=== PATIENT | male | born 1950 | race Caucasian/White ===

== ENCOUNTER 2017-11-25 15:20 | Observation (INO) | payer MEDICARE, BC ==
[2017-11-25] MEDS ORDERED: Sodium Chloride 0.9% 1,000 ML IV ONE (15:39)
[2017-11-25 16:18] LABS: CHLORIDE,CL 101 mmol/L (98-115); SODIUM,NA 140 mmol/L (136-145)
[2017-11-25] MEDS ORDERED: Metoprolol Tartrate 5 MG/5 ML SDV ONE ×2 (16:18→18:54)
[2017-11-25] MEDS ORDERED: Metoprolol Tartrate 5 MG/5 ML SDV IVPUSH ONE ×2 (16:19→18:54)
[2017-11-25] MEDS ORDERED: Ondansetron 4 MG/2 ML SDV IVPUSH ONE ×2 (16:31→17:46)
[2017-11-25] MEDS ORDERED: Ondansetron 4 MG/2 ML SDV ONE (17:39)
--- NOTE | 2017-11-25 19:17 | PCM.SN ---
- Free Text/Narrative Note: Pt admitted through ER. ER provider reports he came to ER due to a syncopal episode today. Pt was last seen at [facility] Dec 2016 with new onset AFib. He was to start on Eliquis and metoprolol tartrate, return for BP recheck. EKG report 01/09/17: Afib, Left Anteriour fascicular Block, R)BBB, Bifascicular block. Echo 01/11/17 showed EF 40%, mildly dilated L)ventricle, Moderately reduced Left ventricular systolic function. No significant mitral or aortic valve stenosis or regurgitation. He did have a previous echo 03/15/15 due to pedal edema. At that time the valves were nl, EF 55%, mild diastolic dysfunction. ER provider report: CT of head was negative. Troponin in ER was upper limits of normal at 0.07 Pt has not been taking any home meds. Heart rate in ER was 130-150. He was given metoprolol 5 mg IV and heart rate was down to 100. BP 100/80-132/94. He has had no chest pain. He does have nausea. ER provider reports he is stable and will transfer pt to [place], admitted for observation on telemetry. Call from nurse 7pm, Heart rate again 130. BP 138/59 Orders given to repeat Metoprolol 5 mg IV now. Start metoprolol tartrate 12.5 mg bid at 9 pm tonight.
[2017-11-25] MEDS ORDERED: Diltiazem 25 MG/5 ML SDV IVPUSH ONE (21:13)
--- NOTE | 2017-11-25 21:13 | EDM.PDOC ---
ED HPI GENERAL MEDICAL PROBLEM - General Chief Complaint: Cardiovascular Problem Stated Complaint: PASSED OUT Time Seen by Provider: 11/25/17 15:25 Source of Information: Reports: Patient, EMS Notes Reviewed - History of Present Illness INITIAL COMMENTS - FREE TEXT/NARRATIVE: 67-year-old male is brought in by EMS for evaluation of syncopal episode and atrial fibrillation with RVR. Patient complained of feeling dizzy while getting up in the kitchen and was heading towards the bathroom and fell having a syncopal episode. EMS was called and [facility]. He reports feeling nausea week and lightheaded. He states that the EMS staff that he does not take any medications but probably is supposed to. He denies any heart problems except for history of hypertension which he does not take medication for as prescribed he was also placed on Eliqius with and was recently diagnosed with atrial fibrillation earlier this year. Vital signs showed that patient was tachycardic and hypotensive and diaphoretic he did not have an IV started and is not given fluids. He reports no chest pain or shortness of breath. He denies headache and is not experiencing any difficulty with speech and has excellent recall of memory both recent and remote events. Onset: Today Onset Date: 11/25/17 Onset Time: 14:00 Duration: Minutes: Location: Reports: Chest Severity: Moderate Improves with: Reports: None Worsens with: Reports: None Associated Symptoms: Reports: Diaphoresis, Nausea/Vomiting, Syncope. Denies: Confusion, Chest Pain, Headaches, Seizure, Shortness of Breath - Related Data Allergies Allergy/AdvReac Type Severity Reaction Status Date / Time Penicillins Allergy Anaphylactic Verified 11/25/17 16:20 Shock Past Medical History HEENT History: Reports: Impaired Vision Cardiovascular History: Reports: Afib, Hypertension, Syncope Gastrointestinal History: Reports: None Genitourinary History: Reports: None Musculoskeletal History: Reports: None - Infectious Disease History Infectious Disease History: Reports: Chicken Pox, Measles, Mumps - Past Surgical History HEENT Surgical History: Reports: Oral Surgery Cardiovascular Surgical History: Reports: None GI Surgical History: Reports: Hernia, Inguinal Male Surgical History: Reports: None Musculoskeletal Surgical History: Reports: Other (See Below) Other Musculoskeletal Surgeries/Procedures:: fluid removed from the knee once more than 10 years ago. Social & Family History - Family History Cardiac: Reports: Aneurysm Oncologic: Reports: Colon - Tobacco Use Smoking Status *Q: Former Smoker Years of Tobacco use: 6 Packs/Tins Daily: 2 Used Tobacco, but Quit: Yes Month Tobacco Last Used: 360 Second Hand Smoke Exposure: No - Caffeine Use Caffeine Use: Reports: Soda Caffeine Use Comment: Drinks about three bottles of Mnt dew - Alcohol Use Days Per Week of Alcohol Use: 0 - Recreational Drug Use Recreational Drug Use: No ED ROS GENERAL - Review of Systems Review Of Systems: See Below Constitutional: Reports: Diaphoresis HEENT: Reports: No Symptoms Respiratory: Reports: No Symptoms Cardiovascular: Reports: Blood Pressure Problem, Lightheadedness. Denies: Chest Pain, Dyspnea on Exertion, Palpitations Endocrine: Reports: No Symptoms GI/Abdominal: Reports: No Symptoms : Reports: No Symptoms Musculoskeletal: Denies: Neck Pain, Back Pain, Joint Pain Skin: Reports: Diaphoresis Neurological: Reports: Syncope. Denies: Confusion, Dizziness, Headache, Numbness, Paresthesia, Tingling, Trouble Speaking, Difficulty Walking, Weakness , Change in Speech, Gait Disturbance Psychiatric: Reports: No Symptoms Hematologic/Lymphatic: Reports: No Symptoms Immunologic: Reports: Anaphylaxis (PCN) ED EXAM, GENERAL - Physical Exam Exam: See Below Exam Limited By: No Limitations General Appearance: Alert, WD/WN, No Apparent Distress Eye Exam: Bilateral Eye: EOMI, PERRL Ears: Normal External Exam, Normal TMs Nose: Normal Inspection Throat/Mouth: Normal Inspection, Normal Oropharynx, Normal Voice, No Airway Compromise Head: Atraumatic, Normocephalic Neck: Normal Inspection, Supple, Non-Tender, Full Range of Motion. No: Lymphadenopathy (L), Lymphadenopathy (R) Respiratory/Chest: No Respiratory Distress, Lungs Clear, Normal Breath Sounds Cardiovascular: Tachycardia, Irregularly Irregular GI/Abdominal: Normal Bowel Sounds, Soft, Non-Tender, No Abnormal Bruit Back Exam: Normal Inspection, Full Range of Motion Extremities: Normal Inspection, Normal Range of Motion, No Pedal Edema Neurological: Alert, Oriented, CN II-XII Intact, Normal Cognition, Normal Reflexes, No Motor/Sensory Deficits. No: Memory Loss Remote Events, Memory Loss Recent Events Psychiatric: Normal Affect, Normal Mood Skin Exam: Warm, Intact, Cyanosis, Diaphoretic Lymphatic: No Adenopathy EKG INTERPRETATION EKG Date: 11/25/17 Time: 15:58 Rhythm: A-Fib Rate (Beats/Min): 109 [place]: LAD-Left [place] Deviation QRS: RBBB ST-T: Normal QT: Normal Comparison: NA - No Prior EKG EKG Interpretation Comments: Atrial fibrillation with rapid ventricular response Left axis deviation Right bundle branch block Abnormal ECG Course - Vital Signs Last Recorded V/S: Last Vital Signs Temp 98.3 F 11/25/17 18:10 Pulse 106 H 11/25/17 20:01 Resp 18 11/25/17 19:10 BP 95/67 11/25/17 20:01 Pulse Ox 95 11/25/17 20:01 - Orders/Labs/Meds Orders: Active Orders 24 hr Category Date Time Status Admission Status [Patient Status] [ADT] Routine ADT 11/25/17 17:32 Ordered EKG Documentation Completion [RC] ASDIRECTED Care 11/25/17 15:38 Active Head wo Cont [CT] Stat Exams 11/25/17 16:31 Ordered EKG 12 Lead [EK] Routine Ther 11/25/17 15:38 Ordered Medication Orders Apixaban (Eliquis) 5 mg PO BID HANNAH Labs: Laboratory Tests 11/25/17 11/25/17 Range/Units 15:35 15:35 WBC 11.2 H (5.0-10.0) 10^3/uL RBC 4.95 (4.50-6.00) 10^6/uL Hgb 14.0 (13.0-17.0) g/dL Hct 44.2 (40.0-52.0) % MCV 89.2 (82.0-92.0) fL MCH 28.3 (27.0-31.0) pg MCHC 31.7 L (32.0-36.0) g/dL RDW 12.1 (11.5-14.5) % Plt Count 423 H (150-300) 10^3/uL MPV 7.9 (7.4-10.4) fL Neut % (Auto) 84.4 H (50.0-70.0) % Lymph % (Auto) 10.9 L (20.0-40.0) % [place] % (Auto) 4.2 (2.0-8.0) % Eos % (Auto) 0.5 L (1.0-3.0) % Baso % (Auto) 0.0 (0.0-1.0) % Neut # (Auto) 9.4 H (2.5-7.0) 10^3/uL Lymph # (Auto) 1.2 (1.0-4.0) 10^3/uL [place] # (Auto) 0.5 (0.1-0.8) 10^3/uL Eos # (Auto) 0.1 (0.1-0.3) 10^3/uL Baso # (Auto) 0.0 (0.0-0.1) 10^3/uL Sodium 140 (136-145) mmol/L Potassium 4.5 (3.3-5.3) mmol/L Chloride 101 (98-115) mmol/L Carbon Dioxide 27.8 (21.0-32.0) mmol/L BUN 22 (6-25) mg/dL Creatinine 1.63 H (0.51-1.17) mg/dL Est Cr Clr Drug Dosing TNP Estimated GFR (MDRD) 43 mL/min Glucose 133 H (70-110) mg/dL Calcium 9.2 (8.7-10.3) mg/dL Troponin I 0.07 (0.00-0.070) ng/mL Meds: Medications Generic Name Dose Route Start Last Admin Trade Name Freq PRN Reason Stop Dose Admin Apixaban 5 mg 11/25/17 21:00 Eliquis PO BID HANNAH Discontinued Medications Generic Name Dose Route Start Last Admin Trade Name Freq PRN Reason Stop Dose Admin Sodium Chloride 1,000 mls @ 1,000 mls/hr 11/25/17 15:39 11/25/17 15:40 Normal Saline IV 11/25/17 16:38 1,000 mls/hr .BOLUS ONE Administration Metoprolol Tartrate Confirm 11/25/17 16:18 11/25/17 17:48 Lopressor Administered 11/25/17 16:19 Not Given Dose 5 mg .ROUTE .STK-MED ONE Metoprolol Tartrate 5 mg 11/25/17 16:19 11/25/17 16:22 Lopressor IVPUSH 11/25/17 16:20 5 mg ONETIME ONE Administration Metoprolol Tartrate Confirm 11/25/17 18:54 11/25/17 19:10 Lopressor Administered 11/25/17 18:55 5 mg Dose Administration 5 mg .ROUTE .STK-MED ONE Ondansetron HCl 8 mg 11/25/17 16:31 11/25/17 16:34 Zofran IVPUSH 11/25/17 16:32 8 mg ONETIME ONE Administration Ondansetron HCl Confirm 11/25/17 17:39 11/25/17 17:47 Zofran Administered 11/25/17 17:40 4 mg Dose Administration 4 mg .ROUTE .STK-MED ONE Ondansetron HCl 4 mg 11/25/17 17:46 Zofran IVPUSH 11/25/17 17:47 ONETIME ONE - Radiology Interpretation Free Text/Narrative:: CT the head without IV contrast Indication: Syncope Discussion: Mild to moderate generalized atrophy The ridley and white matter are normal in attenuation No mass effect or midline shift No acute hemorrhage or extra-axial fluid collection no acute territorial infarct is identified A limited look at the orbits and paranasal sinuses is unremarkable Impression: No acute findings CT Results Date: 11/25/17 - Re-Assessments/Exams Free Text/Narrative Re-Assessment/Exam: 11/25/17 1420 Patient reports that he feels better. He is no longer sweating. His nausea is resolved and is not experiencing dizziness. He denies palpitations and denies shortness of breath. He has no complaints of a headache. He was given 1 L fluid normal saline 5 mg IV slow push over 5 minutes metoprolol his heart rate improved at 100 bpm and was maintained Departure - Departure Time of Disposition: 18:15 Disposition: Refer to Observation Condition: Fair Clinical Impression: Atrial fibrillation with RVR, Patient noncompliant with antithrombotic medication Syncopal episodes Qualifiers: Syncope type: unspecified Qualified Code(s): R55 - Syncope and collapse - My Orders Last 24 Hours: My Active Orders 11/25/17 15:38 EKG Documentation Completion [RC] ASDIRECTED EKG 12 Lead [EK] Routine 11/25/17 16:31 Head wo Cont [CT] Stat 11/25/17 17:32 Admission Status [Patient Status] [ADT] Routine - Assessment/Plan Last 24 Hours: My Active Orders 11/25/17 15:38 EKG Documentation Completion [RC] ASDIRECTED EKG 12 Lead [EK] Routine 11/25/17 16:31 Head wo Cont [CT] Stat 11/25/17 17:32 Admission Status [Patient Status] [ADT] Routine Assessment:: Syncopal episode Atrial fibrillation with RVR Noncompliant with hypertensive and anticoagulant medication. Plan: Patient's heart rate improved and was maintained at 100 bpm with metoprolol 5 mg IV. He was given 1 L normal saline fluids and blood pressures improved no 132 /94. Patient was not experiencing chest pain or shortness of breath. His nausea resolved with medication. CT scan of his head was negative for acute bleed or stroke. Patient will be admitted on telemetry and transfer care was provided by [facility] adoption agent mid-level practitioner.
--- NOTE | 2017-11-25 21:25 | PCM.HP ---
H&P History of Present Illness - General Date of Service: 11/25/17 Admit Problem/Dx: syncope, Afib with RVR Source of Information: Patient History Limitations: Reports: No Limitations - History of Present Illness Initial Comments - Free Text/Narative: 67 yo pleasant male in no apparent distress reports he was feeling fine. He got up to go to the bathroom this afternoon and on arriving at the door, just passed out. When he fell/landed, he immediately revived. He states he had no light headedness, dizziness or vision change before or after incident. Pt denies any chest pain, shortness of breath, fever. He does report he has felt nauseated since the incident. Pt has a history of Afib diagnosed in Dec 2016 and was started on lopressor 12.5 mg bid and eliquis. He states at one time he ran out of the medication and just didn't refill it. Pt was seen in ER where he had a CT of the head which was negative. He was given a liter of IV fluids and lopressor 5 mg IV x 1 at 3pm. Heart rate improved from 130-150s to 100. BP 100/80s to 132/94. Troponin is upper normal at 0.07. Onset of Symptoms: Reports: Sudden Symptom Onset Date: 11/25/17 Duration of Symptoms: Reports: Other (seconds) Location: Reports: Other (syncope) - Related Data Allergies/Adverse Reactions: Allergies Allergy/AdvReac Type Severity Reaction Status Date / Time Penicillins Allergy Anaphylactic Verified 11/25/17 16:20 Shock Past Medical History HEENT History: Reports: Impaired Vision Cardiovascular History: Reports: Afib, Hypertension, Syncope Gastrointestinal History: Reports: None Genitourinary History: Reports: None Musculoskeletal History: Reports: Gout - Infectious Disease History Infectious Disease History: Reports: Chicken Pox, Measles, Mumps - Past Surgical History HEENT Surgical History: Reports: Oral Surgery Cardiovascular Surgical History: Reports: None GI Surgical History: Reports: Hernia, Inguinal Male Surgical History: Reports: None Musculoskeletal Surgical History: Reports: Other (See Below) Other Musculoskeletal Surgeries/Procedures:: fluid removed from the knee once more than 10 years ago. Social & Family History - Family History Cardiac: Reports: Aneurysm Oncologic: Reports: Colon - Tobacco Use Smoking Status *Q: Former Smoker Years of Tobacco use: 6 Packs/Tins Daily: 2 Used Tobacco, but Quit: Yes Month Tobacco Last Used: 360 Second Hand Smoke Exposure: No - Caffeine Use Caffeine Use: Reports: Soda Caffeine Use Comment: Drinks about three bottles of Mnt dew - Alcohol Use Days Per Week of Alcohol Use: 0 - Recreational Drug Use Recreational Drug Use: No H&P Review of Systems - Review of Systems: Review Of Systems: See Below General: Reports: Fatigue (fatigue since hospital admission and on lopressor). Denies: Fever, Chills, Malaise, Weakness, Decreased Appetite, Weight Gain HEENT: Reports: No Symptoms Pulmonary: Reports: No Symptoms. Denies: Shortness of Breath, Cough Cardiovascular: Reports: No Symptoms. Denies: Chest Pain, Palpitations, Dyspnea on Exertion, Edema Gastrointestinal: Reports: Nausea. Denies: Constipation, Diarrhea, Vomiting Psychiatric: Reports: No Symptoms. Denies: Confusion Neurological: Reports: No Symptoms, Syncope (syncope x 1 this afternoon). Denies: Confusion, Dizziness, Headache, Paresthesia Hematologic/Lymphatic: Reports: No Symptoms Immunologic: Reports: No Symptoms Exam - Exam Exam: See Below - Vital Signs Vital Signs: Last Vital Signs Temp 98.3 F 11/25/17 18:10 Pulse 106 H 11/25/17 20:01 Resp 18 11/25/17 19:10 BP 95/67 11/25/17 20:01 Pulse Ox 95 11/25/17 20:01 Weight: 242 lb 8 oz - Exam Quality Assessment: No: Supplemental Oxygen General: Alert, Oriented, Cooperative HEENT: EOMI, Hearing Intact, Mucosa Moist & [place], Posterior Pharynx Clear, Pupils Equal, Pupils Reactive Neck: Supple. No: Carotid Bruit, JVD Lungs: Clear to Auscultation, Normal Respiratory Effort. No: Decreased Breath Sounds, Crackles, Rales, Rhonchi, Wheezing Cardiovascular: Irregular Rhythm, Tachycardia GI/Abdominal Exam: Normal Bowel Sounds, Soft, Non-Tender (Male) Exam: Deferred Extremities: Normal Inspection, No Pedal Edema Neurological: Cranial Nerves Intact Neuro Extensive - Mental Status: Alert, Oriented x3, Normal Mood/Affect, Normal Cognition, Memory Intact Psychiatric: Alert, Normal Affect, Normal Mood - Patient Data Result Diagrams: 11/25/17 15:35 11/25/17 15:35 EKG INTERPRETATION Rhythm: A-Fib Rate (Beats/Min): 109 [place]: LAD-Left [place] Deviation Comparison: Other: (EKG 01/09/17 Afib, left anterior fascicular block: RBBB, Bifascicular block) *Q Meaningful Use (ADM) - VTE *Q VTE Criteria *Q: - Stroke *Q Stroke Criteria *Q: - AMI *Q AMI Criteria *Q: Problem List Initiated/Reviewed/Updated: Yes Orders Last 24hrs: Active Orders 24 hr Category Date Time Status Bedrest Bathroom Privileges [RC] ASDIRECTED Care 11/25/17 20:00 Active EKG Documentation Completion [RC] ASDIRECTED Care 11/25/17 21:12 Ordered EKG Documentation Completion [RC] ASDIRECTED Care 11/25/17 21:16 Ordered Heart Healthy Diet [DIET] Diet 11/26/17 Breakfast Active TROPONIN I [CHEM] Routine Lab 11/25/17 21:11 Ordered TROPONIN I [CHEM] Routine Lab 11/26/17 03:00 Ordered Apixaban [Eliquis] Med 11/25/17 21:00 Active 5 mg PO BID Diltiazem Med 11/25/17 21:13 Once 10 mg IVPUSH ONETIME ONE EKG 12 Lead [EK] Routine Ther 11/25/17 21:12 Ordered EKG 12 Lead [EK] Routine Ther 11/26/17 03:00 Ordered Medication Orders Apixaban (Eliquis) 5 mg PO BID HANNAH Diltiazem HCl (Diltiazem) 10 mg IVPUSH ONETIME ONE Stop: 11/25/17 21:14 Assessment/Plan Comment:: 1. Afib with RVR: Admit for observation. Pt is in no distress. Heart rate continues to be tachycardic. He was given IV metoprolol 5 mg in ER at 3 pm and again at 7 pm. Heart rate dropped to 80-90 initially, 9 pm it is returning to 103-130. [address] Lopez re: tachycardia with hypotension. He advises Diltiazem 10 mg IV. May repeat in 20 min. continue IV fluids Will recheck Troponin and EKG now and 3 am.
[2017-11-25] MEDS ORDERED: Diltiazem 25 MG/5 ML SDV IVPUSH PRN (21:52)
[2017-11-25] MEDS ORDERED: Sodium Chloride 0.9% 1,000 ML IV SCH (22:00)
[2017-11-25] MEDS: Apixaban 5 MG Tab PO SCH (22:51)
[2017-11-25] MEDS: Metoprolol Tartrate 25 MG Tab PO SCH (22:51)
[2017-11-26] MEDS: Apixaban 5 MG Tab PO SCH ×2 (08:37→21:04)
[2017-11-26] MEDS ORDERED: Atropine 0.1 MG/ML 10 ML Syringe IVPUSH PRN (08:39)
[2017-11-26] MEDS ORDERED: Lidocaine 2% 100 MG/5 ML Syringe IVPUSH PRN (08:39)
[2017-11-26] MEDS ORDERED: Nitroglycerin 0.4 MG Tab.SL SL PRN (08:39)
[2017-11-26] MEDS: Metoprolol Tartrate 25 MG Tab PO SCH ×2 (08:39→21:05)
[2017-11-26] MEDS ORDERED: EPINEPHrine 1:10,000 1 MG/10 ML Syringe IVPUSH PRN (08:39)
[2017-11-27 06:50] VITALS: BP 98/62
[2017-11-27] MEDS: Apixaban 5 MG Tab PO SCH (07:59)
[2017-11-27] MEDS: Metoprolol Tartrate 25 MG Tab PO SCH (08:00)
--- NOTE | 2017-11-27 08:30 | PN ---
11/26/2017PATIENT NAME: IVANIA SCHULTZ PROBLEM: 1. Atrial fibrillation with rapid onset. 2. Hypotension. SUBJECTIVE: This 67-year-old patient is seen today for followup. He was admitted yesterday because of rapid heart rate and hypotension. The patient currently was taking Eliquis and metoprolol, but decided to stop the medication on his own for some time. He presented to the emergency room with a very rapid heart rate and hypotension. He was started on IV metoprolol and this appeared to bring his heart rate back to normal. He has had a history of atrial fibrillation since December 2016, and has been on Lopressor 12.5 mg b.i.d., and Eliquis 5 mg b.i.d. He was given a liter of IV fluid fluids and Lopressor IV 5 mg at 3:00 p.m. His heart rate improved from 130 to 100. Blood pressure was 100/80 to 132/94. Today morning, he is seen for followup. His vital signs are as follows. OBJECTIVE: VITAL SIGNS: Blood pressure is low at 83/62. Temperature is 98.4, respiratory rate is 18, oxygen saturation 97%. GENERAL: He appears to be alert and in no distress. HEENT: His head is normocephalic. NECK: Supple. LUNGS: Clear. HEART: Regular rhythm. ABDOMEN: Soft. EXTREMITIES: Normal. LABORATORY DATA: His hemoglobin is 14, white count 11.2, normal differential count. Electrolytes are normal. Creatinine is slightly high at 1.63, BUN is normal at 22. Glucose 133. FINAL DIAGNOSIS: Atrial fibrillation with rapid ventricular rate. This is due to patient being delinquent on his medication. He was started back on his metoprolol. Also on Eliquis. His blood pressure is still low. We will ask him to drink plenty of fluids today and move around. We will see how he does. Possible discharge tomorrow if the blood pressure comes back to normal. /[id number]/MODL
--- NOTE | 2017-11-28 08:42 | DISCH ---
FINAL DIAGNOSES: 1. Atrial fibrillation, chronic, CHADS2-Vasc score low risk, 1 to 2. 2. Medication noncompliance. HISTORY: This 67-year-old gentleman was admitted to the emergency department due to atrial fibrillation with rapid ventricular response. He had been on Factor Xa anticoagulation along with beta-mago, however, he had stopped these medications. He stated he was up to the bathroom the afternoon of admission and he said he passed out. He fell. He did not have any other injury. He does have history of atrial fibrillation he was diagnosed approximately one year ago. At that time, he was started on Lopressor 25 mg p.o. b.i.d. along with Eliquis. Basically, he ran out of the medication. He just did not refill it. He was admitted to start on anticoagulation and for telemetry monitoring and for medications due to his RVR. DIAGNOSTICS: In the ED: 1. EKG shows rapid ventricular response, rates 130s. 2. CT of the head, negative. HOSPITAL COURSE: Hospital course went fairly well. He was given IV metoprolol, also started back on Eliquis. At one time, his blood pressure did get a little low, he was given initial fluids, this did improve his overall status. Troponins were negative. He remained on telemetry. His rate slowly improved. He was also given diltiazem 10 mg IV push one time. He never became hemodynamically unstable. Pharmacy was consulted to discuss with the patient regarding patient noncompliance. LABORATORY DATA: White count 11.2 on admission, hematocrit 44.2, hemoglobin 14.0. Sodium and potassium normal, BUN 22, creatinine 1.63. Troponin x3 were negative. PHYSICAL EXAM ON DISCHARGE: VITAL SIGNS: Temperature 97, heart rate 80s to 90s, blood pressure approximately 100 systolically. GENERAL: The patient is alert and oriented. Denies any dizziness. Denies any chest pain or chest fluttering. CV: Irregular rhythm, rate 90. DISCHARGE MEDICATIONS: 1. Eliquis 5 mg p.o. b.i.d. 2. Metoprolol tartrate 12.5 mg p.o. b.i.d. DISPOSITION: The patient will be discharged from the hospital. He will follow up with Jessica Ya, primary care provider. If he report any dizziness or any lightheadedness, he is educated to continue his medication. FOLLOW-UP RECOMMENDATIONS: Consider cardiology consultation for rhythm control strategy. /[id number]/MODL
== END 2017-11-27 12:30 | disposition home or self-care (01) ==
LOC: KA.ED 15:20 → KA.MS 17:40
PROVIDERS: ADMIT Physician Assistant; ATTEND Nurse Practitioner Family
DX: I48.2 Chronic atrial fibrillation (principal); R55 Syncope and collapse; I10 Essential (primary) hypertension; I95.9 Hypotension, unspecified; Z79.899 Other long term (current) drug therapy; Z91.14 Patient's other noncompliance with medication regimen; Z88.0 Allergy status to penicillin; Z87.891 Personal history of nicotine dependence; Z79.01 Long term (current) use of anticoagulants
CPT/HCPCS: 36415; 70450; 80048; 84484; 85025; 93005; 96361; 96374; 96375; 99285; A9270; G0378; J2405; J7030; 99283; J3490

== ENCOUNTER 2020-09-07 18:20 | Emergency (ER) | payer MEDICARE ==
--- NOTE | 2020-09-07 18:34 | EDM.PDOC ---
ED HPI GENERAL MEDICAL PROBLEM - General Chief Complaint: Cardiovascular Problem Stated Complaint: short of breath Time Seen by Provider: 09/07/20 18:33 Source of Information: Reports: Patient, EMS, EMS Notes Reviewed History Limitations: Reports: No Limitations - History of Present Illness INITIAL COMMENTS - FREE TEXT/NARRATIVE: Ladarius, 70-year-old male, had significant worsening of pedal edema and developed shortness of breath with ambulation today. In chart review, it is noted that he has had a 30 pound weight gain in the past month. This was documented on 02 September. He had been seen 02 September at the [facility] with Savannah Donovan NP with evaluation including chest x-ray and EKG and lab work. Was started on Lasix at that time with the brain type natruretic peptide elevation at 190. He contacted the clinic today stating his symptoms have worsened, unable to ambulate very far in his home without becoming significantly short of breath. He evidently has no method of transportation so ambulance was summoned for transport to the emergency department. He states his edema to the legs and feet has significantly worsened as well as his difficulty with breathing. He denies chest pain or chest pressure. No significant change in bowel or bladder patterns. Denies any fever, chills,cough, nor exposure to Covid 19. Onset Date: 08/30/20 Duration: Week(s): Location: Reports: Chest, Lower Extremity, Left, Lower Extremity, Right Quality: Reports: Burning, Pressure Severity: Moderate Improves with: Reports: None Worsens with: Reports: Movement Context: Reports: Activity Associated Symptoms: Reports: Nausea/Vomiting, Shortness of Breath - Related Data Allergies Allergy/AdvReac Type Severity Reaction Status Date / Time Penicillins Allergy Anaphylactic Verified 11/25/17 16:20 Shock Home Meds: Home Meds Apixaban [Eliquis] 5 mg PO BID #60 tablet 11/27/17 [Rx] Metoprolol Tartrate [Lopressor] 12.5 mg PO BID #60 tablet 11/27/17 [Rx] Morphine Sulfate/PF [Morphine 1 mg/2 ml Syringe] 1 mg IV ONETIME #1 syringe 09/07/20 [Rx] Past Medical History HEENT History: Reports: Impaired Vision Cardiovascular History: Reports: Afib, Hypertension, Syncope Respiratory History: Reports: None Gastrointestinal History: Reports: None Genitourinary History: Reports: None Musculoskeletal History: Reports: Gout, Osteoarthritis (chronic knee pain) Neurological History: Reports: None Psychiatric History: Reports: None Hematologic History: Reports: Anemia - Infectious Disease History Infectious Disease History: Reports: Chicken Pox, Measles, Mumps - Past Surgical History HEENT Surgical History: Reports: Oral Surgery Cardiovascular Surgical History: Reports: None GI Surgical History: Reports: Appendectomy, Hernia, Inguinal Male Surgical History: Reports: None Musculoskeletal Surgical History: Reports: Other (See Below) Other Musculoskeletal Surgeries/Procedures:: fluid removed from the knee once more than 10 years ago. hammer toe repair Social & Family History - Family History Family Medical History: Noncontributory Cardiac: Reports: Aneurysm Oncologic: Reports: Colon - Caffeine Use Caffeine Use: Reports: None Caffeine Use Comment: Drinks about three bottles of Mnt dew ED ROS GENERAL - Review of Systems Review Of Systems: See Below Constitutional: Reports: No Symptoms HEENT: Reports: No Symptoms Respiratory: Reports: Shortness of Breath Cardiovascular: Reports: Claudication, Dyspnea on Exertion, Edema. Denies: Chest Pain Endocrine: Reports: No Symptoms GI/Abdominal: Reports: No Symptoms : Reports: No Symptoms Musculoskeletal: Reports: No Symptoms Skin: Reports: No Symptoms Neurological: Reports: No Symptoms Psychiatric: Reports: No Symptoms Hematologic/Lymphatic: Reports: No Symptoms Immunologic: Reports: No Symptoms ED EXAM, GENERAL - Physical Exam Exam: See Below Free Text/Narrative:: Mr. Greenberg, is alert and oriented exhibiting no cyanosis nor pallor. He does not demonstrate respiratory distress but states he is more comfortable seated upright. HEENT is negative to discharge or deformity. PERRLA no icterus no injection [place] moist mucous membranes Neck is soft supple no rigidity no tenderness no JVD and no carotid bruit are auscultated. Thorax is diminished breath sounds with scattered fine crackle rhonchi to the bases his habitus limits auscultation. Cardiac is distant it is consistent with atrial fibrillation the rate greater than 100 with occasional ectopic beats which correlate with radial pulse to the right. 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 No evaluation has been done. Rotund abdomen soft bowel sounds are present there is no tenderness to palpation. rectal is deferred. He has +3 pitting edema from the shins into the feet with skin warm and dry. There is a rubor appearance to the shins and ankle region. He states his feet have been hurting with pressure but denies any pain other than that. Has intermittent nausea occurring since he ambulance transport. #1 Interpretation EKG Date: 09/07/20 Time: 18:39 Rhythm: A-Fib [place]: LAD-Left [place] Deviation QRS: RBBB ST-T: Depressed Comparison: No Change (comparison to [place] 02 Sep 2020) Course - Vital Signs Last Recorded V/S: Last Vital Signs Temp 37.4 C 09/07/20 18:30 Pulse 117 H 09/07/20 20:16 Resp 28 H 09/07/20 20:16 BP 127/104 H 09/07/20 20:16 Pulse Ox 96 09/07/20 20:16 - Orders/Labs/Meds Orders: Active Orders 24 hr Category Date Time Status EKG Documentation Completion [RC] ASDIRECTED Care 09/07/20 19:07 Active Insert Sepulveda Catheter [Insert Urinary Catheter] [OM.PC] Care 09/07/20 19:30 Ordered Q24H Peripheral IV Care [RC] . DIRECTED Care 09/07/20 19:09 Ordered Urinary Catheter Assessment [RC] ASDIRECTED Care 09/07/20 19:26 Ordered Sodium Chloride 0.9% [Saline Flush] Med 09/07/20 19:09 Ordered 10 ml FLUSH Q8HR PRN Peripheral IV Insertion Adult [OM.PC] Routine Oth 09/07/20 19:09 Ordered EKG 12 Lead [EK] Stat Ther 09/07/20 19:06 Ordered Medication Orders Sodium Chloride (Saline Flush) 10 ml FLUSH Q8HR PRN PRN Reason: keep vein open Last Admin: 09/07/20 19:50 Dose: 10 ml Documented by: Labs: Laboratory Tests 09/07/20 09/07/20 09/07/20 Range/Units 18:50 18:50 19:47 WBC 12.78 H (5.00-10.00) 10^3/uL RBC 4.42 L (4.50-6.00) 10^6/uL Hgb 13.1 (13.0-17.0) g/dL Hct 39.8 L (40.0-52.0) % MCV 90.0 (82.0-92.0) fL MCH 29.6 (27.0-31.0) pg MCHC 32.9 (32.0-36.0) g/dL RDW 14.3 (11.5-14.5) % Plt Count 243 (150-400) 10^3/uL MPV 10.9 H (7.4-10.4) fL Immature Gran % (Auto) 0.2 (0.0-5.0) % Neut % (Auto) 82.0 H (50.0-70.0) % Lymph % (Auto) 8.2 L (20.0-40.0) % Adams % (Auto) 9.2 H (2.0-8.0) % Eos % (Auto) 0.2 L (1.0-3.0) % Baso % (Auto) 0.2 (0.0-1.0) % Neut # (Auto) 10.49 H (2.50-7.00) 10^3/uL Lymph # (Auto) 1.05 (1.00-4.00) 10^3/uL Adams # (Auto) 1.18 H (0.10-0.80) 10^3/uL Eos # (Auto) 0.02 L (0.10-0.30) 10^3/uL Baso # (Auto) 0.02 (0.00-0.10) 10^3/uL Immature Gran # (Auto) 0.02 (0.00-0.50) 10^3/uL APTT 27.9 (22.8-31.4) SEC Sodium 133 L (136-145) mmol/L Potassium 5.6 H (3.3-5.3) mmol/L Chloride 100 (98-115) mmol/L Carbon Dioxide 26.3 (21.0-32.0) mmol/L Anion Gap 12.3 (5-15) mmol/L BUN 21 (6-25) mg/dL Creatinine 0.84 (0.51-1.17) mg/dL Est Cr Clr Drug Dosing 92.38 mL/min Estimated GFR (MDRD) > 60 mL/min Glucose 115 H (75 - 99) mg/dL Calcium 8.6 L (8.7-10.3) mg/dL Total Bilirubin 0.9 (0.2-1.0) mg/dL AST 49 H (15-37) U/L ALT 29 (12-78) U/L Alkaline Phosphatase 61 (46-116) IU/L Troponin I 0.17 H* (0.00-0.070) ng/mL B-Natriuretic Peptide 219 H (0-100) pg/mL Total Protein 6.9 (6.4-8.2) g/dL Albumin 3.05 (3.00-4.80) g/dL Meds: Medications Generic Name Dose Route Start Last Admin Trade Name Freq PRN Reason Stop Dose Admin Sodium Chloride 10 ml 09/07/20 19:09 09/07/20 19:50 Saline Flush FLUSH 10 ml Q8HR PRN Administration keep vein open Discontinued Medications Generic Name Dose Route Start Last Admin Trade Name Freq PRN Reason Stop Dose Admin Furosemide 40 mg 09/07/20 19:24 09/07/20 19:42 Lasix IVPUSH 09/07/20 19:25 40 mg NOW ONE Administration Morphine Sulfate 1 mg 09/07/20 20:31 09/07/20 20:42 Morphine IVPUSH 09/07/20 20:32 1 mg ONETIME ONE Administration Ondansetron HCl 4 mg 09/07/20 18:53 09/07/20 19:21 Zofran IVPUSH 09/07/20 18:54 4 mg ONETIME ONE Administration Ondansetron HCl 8 mg 09/07/20 20:21 09/07/20 20:30 Zofran IVPUSH 09/07/20 20:22 8 mg ONETIME ONE Administration - Radiology Interpretation Free Text/Narrative:: 2 view chest x-ray showing cardiac silhouette upper limits of normal with congestive pattern correlating with his breathing and edema. Over read is pending at this time. - Re-Assessments/Exams Free Text/Narrative Re-Assessment/Exam: 09/07/20 19:27 After returning from x-ray the minimal movement to obtain 2 view chest returns mildly short of breath with occasional pursed lip breathing despite being on 2 L of oxygen. Free Text/Narrative Re-Assessment/Exam: 09/07/20 21:00 Nausea returned was given 8 mg Zofran IV with good results. 1 mg morphine sulfate administered IV secondary of back pain due to his positioning. He requests sitting up but was told he needed to remain in bed at this time secondary of his diagnosis as well as Sepulveda catheter placement. He states he feels tired at this time awaiting for transfer. Departure - Departure Time of Disposition: 21:03 Disposition: DC/Tfer to Acute Hospital 02 Reason for Transfer *Q: Other (cardiology consult) Condition: Fair Clinical Impression: Atrial fibrillation with RVR, Elevated brain natriuretic peptide (BNP) level, Elevated troponin I level, Hyperkalemia, Nausea Prescriptions: Morphine Sulfate/PF [Morphine 1 mg/2 ml Syringe] 1 mg IV ONETIME #1 syringe Referrals: Savannah Donovan, [employer] [Nurse Practitioner] - Forms: ED Department Discharge Additional Instructions: Transfer per [facility] ground ambulance to [facility] for admission with cardiac consult. 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0 - LOCALIZED EDEMA Status: Acute (4) Atrial fibrillation with RVR SNOMED Code(s): 708574644381079 Code(s): I48.91 - UNSPECIFIED ATRIAL FIBRILLATION Status: Acute (5) Elevated brain natriuretic peptide (BNP) level SNOMED Code(s): 242225665, 873377424 Code(s): R79.89 - OTHER SPECIFIED ABNORMAL FINDINGS OF BLOOD CHEMISTRY Status: Acute Priority: High (6) Elevated troponin I level SNOMED Code(s): 978645952 Code(s): R77.8 - OTHER SPECIFIED ABNORMALITIES OF PLASMA PROTEINS Status: Acute Priority: High (7) Hyperkalemia SNOMED Code(s): 43461611 Code(s): E87.5 - HYPERKALEMIA Status: Acute Priority: High - Problem List Review Problem List Initiated/Reviewed/Updated: Yes - My Orders Last 24 Hours: My Active Orders 09/07/20 19:06 EKG 12 Lead [EK] Stat 09/07/20 19:07 EKG Documentation Completion [RC] ASDIRECTED 09/07/20 19:09 Peripheral IV Care [RC] . DIRECTED Sodium Chloride 0.9% [Saline Flush] 10 ml FLUSH Q8HR PRN Peripheral IV Insertion Adult [OM.PC] Routine 09/07/20 19:26 Urinary Catheter Assessment [RC] ASDIRECTED 09/07/20 19:30 Insert Sepulveda Catheter [Insert Urinary Catheter] [OM.PC] Q24H - Assessment/Plan Last 24 Hours: My Active Orders 09/07/20 19:06 EKG 12 Lead [EK] Stat 09/07/20 19:07 EKG Documentation Completion [RC] ASDIRECTED 09/07/20 19:09 Peripheral IV Care [RC] . DIRECTED Sodium Chloride 0.9% [Saline Flush] 10 ml FLUSH Q8HR PRN Peripheral IV Insertion Adult [OM.PC] Routine 09/07/20 19:26 Urinary Catheter Assessment [RC] ASDIRECTED 09/07/20 19:30 Insert Sepulveda Catheter [Insert Urinary Catheter] [OM.PC] Q24H Plan: Transfer via [place] advanced life support ambulance [facility]. Dr. Reyes hospitalist accepting after discussion with Dr. Nicci Mercer cardiology.
[2020-09-07] MEDS: Ondansetron 4 MG/2 ML SDV IVPUSH ONE ×2 (19:21→20:30)
[2020-09-07 19:30] LABS: ANION GAP 12.3 mmol/L (5-15); CHLORIDE,CL 100 mmol/L (98-115); SODIUM,NA 133 mmol/L (136-145)
--- NOTE | 2020-09-07 19:41 | CR ---
[id number] RAD/RAD Chest PA And Lateral EXAM: FRONTAL AND LATERAL CHEST INDICATION: Shortness of breath. COMPARISON: January 18, 2010. DISCUSSION: Lung volumes somewhat limit this assessment. Within this limitation there is mild bibasilar atelectasis and/or infiltrates. The heart is prominent in size without evidence of congestive heart failure. Tortuous aorta. IMPRESSION: 1. Mild basilar atelectasis and/or infiltrates. Jefferson Saleh MD 09/07/20 1939 Thank you for allowing us to participate in the care of your patient.
[2020-09-07] MEDS: Furosemide 40 MG/4 ML VIAL IVPUSH ONE (19:42)
[2020-09-07] MEDS: Sodium Chloride 0.9% 10 ML Syringe FLUSH PRN (19:50)
[2020-09-07] MEDS: Morphine 2 MG/ML SYRINGE IVPUSH ONE (20:42)
[2020-09-07] MEDS: Metoprolol Tartrate 5 MG/5 ML SDV IVPUSH ONE (23:02)
[2020-09-07 23:14] VITALS: BP 160/91; PULSE 119
[2020-09-07] MEDS: Metoprolol Tartrate 5 MG/5 ML SDV ONE (23:14)
== END 2020-09-07 23:14 ==
LOC: KA.ED 18:20
DX: I48.91 Unspecified atrial fibrillation (principal); R79.1 Abnormal coagulation profile; R79.89 Other specified abnormal findings of blood chemistry; E87.5 Hyperkalemia; R11.0 Nausea; I45.10 Unspecified right bundle-branch block; I10 Essential (primary) hypertension; M10.9 Gout, unspecified; Z88.0 Allergy status to penicillin; Z79.01 Long term (current) use of anticoagulants; Z79.899 Other long term (current) drug therapy
CPT/HCPCS: 36415; 51702; 71046; 80053; 83880; 84484; 85025; 85730; 93005; 96374; 96375; 96376; 99284; 99285-25; J1940; J2270; J2405; J3490

== ENCOUNTER 2021-03-04 12:01 | Inpatient (IN) | payer MEDICARE ==
[2021-03-04] MEDS ORDERED: Sodium Chloride 0.9% 10 ML Syringe FLUSH PRN (12:04)
[2021-03-04] MEDS: Furosemide 40 MG/4 ML VIAL IVPUSH SCH ×2 (13:15→16:51)
[2021-03-04 13:32] LABS: ANION GAP 16.2 mmol/L (5-15); CHLORIDE,CL 105 mmol/L (98-107); SODIUM,NA 144 mmol/L (136-145)
[2021-03-04] MEDS ORDERED: Diclofenac Sodium 1% Gel 100 GM Tube TOP PRN (14:07)
[2021-03-04] MEDS ORDERED: Acetaminophen 650 MG Tab.ER PO PRN (14:17)
[2021-03-04] MEDS: Digoxin 125 MCG Tab PO SCH (14:32)
[2021-03-04] MEDS: Gabapentin 100 MG Cap PO SCH ×2 (14:32→20:22)
[2021-03-04] MEDS: Nystatin Crm 15 GM Tube TOP SCH ×2 (16:52→20:25)
[2021-03-04] MEDS: Carvedilol 12.5 MG Tab PO SCH (17:03)
[2021-03-04] MEDS: Warfarin 5 MG Tab PO SCH (17:03)
[2021-03-04] MEDS: Melatonin 3 MG Tab PO SCH (20:22)
[2021-03-04] MEDS: Lisinopril 20 MG Tab PO SCH (20:26)
[2021-03-05 08:14] LABS: CHLORIDE,CL 104 mmol/L (98-107); SODIUM,NA 145 mmol/L (136-145)
[2021-03-05] MEDS: Potassium Chloride 20 MEQ Tab.ER PO SCH (08:51)
[2021-03-05] MEDS: Gabapentin 100 MG Cap PO SCH ×3 (08:51→20:14)
[2021-03-05] MEDS: Digoxin 125 MCG Tab PO SCH (08:51)
[2021-03-05] MEDS: Allopurinol 100 MG Tab PO SCH (08:52)
[2021-03-05] MEDS: Carvedilol 12.5 MG Tab PO SCH ×2 (08:52→18:11)
[2021-03-05] MEDS: Furosemide 40 MG/4 ML VIAL IVPUSH SCH ×2 (08:53→15:29)
[2021-03-05] MEDS: Nystatin Crm 15 GM Tube TOP SCH ×3 (08:55→20:18)
--- NOTE | 2021-03-05 09:48 | PCM.PN ---
- General Info Date of Service: 03/05/21 Functional Status: Reports: Tolerating Diet, Urinating. Denies: New Symptoms - Review of Systems General: Denies: Weakness HEENT: Denies: Headaches Pulmonary: Denies: Shortness of Breath Cardiovascular: Reports: Dyspnea on Exertion, Edema. Denies: Chest Pain, Palpit ations, Lightheadedness Gastrointestinal: Reports: Abdominal Pain (lower abdomen). Denies: Constipation, Decreased Appetite, Diarrhea, Nausea, Vomiting Genitourinary: Reports: No Symptoms Skin: Reports: Rash (abdominal folds, no itching or pain) Neurological: Denies: Confusion, Dizziness, Headache Psychiatric: Reports: No Symptoms - Patient Data Vitals - Most Recent: Last Vital Signs Temp 96.1 F L 03/05/21 06:48 Pulse 93 03/05/21 08:52 Resp 22 H 03/05/21 06:48 BP 118/74 03/05/21 08:52 Pulse Ox 94 L 03/05/21 06:48 Weight - Most Recent: 293 lb I&O - Last 24 Hours: Intake & Output 03/04/21 03/05/21 03/05/21 22:59 06:59 14:59 Intake Total 400 300 Output Total 2200 600 Balance -1800 -300 Lab Results Last 24 Hours: Laboratory Results - last 24 hr 03/04/21 03/04/21 03/04/21 Range/Units 13:05 13:05 13:05 WBC 10.83 H (5.00-10.00) 10^3/uL RBC 4.57 (4.50-6.00) 10^6/uL Hgb 13.5 (13.0-17.0) g/dL Hct 42.7 (40.0-52.0) % MCV 93.4 H D (82.0-92.0) fL MCH 29.5 (27.0-31.0) pg MCHC 31.6 L (32.0-36.0) g/dL RDW 14.7 H (11.5-14.5) % Plt Count 288 D (150-400) 10^3/uL MPV 10.4 (7.4-10.4) fL Immature Gran % (Auto) 0.1 (0.0-5.0) % Neut % (Auto) 77.6 H (50.0-70.0) % Lymph % (Auto) 14.5 L (20.0-40.0) % Josephine % (Auto) 6.6 (2.0-8.0) % Eos % (Auto) 0.9 L (1.0-3.0) % Baso % (Auto) 0.3 (0.0-1.0) % Neut # (Auto) 8.41 H (2.50-7.00) 10^3/uL Lymph # (Auto) 1.57 (1.00-4.00) 10^3/uL Josephine # (Auto) 0.71 (0.10-0.80) 10^3/uL Eos # (Auto) 0.10 (0.10-0.30) 10^3/uL Baso # (Auto) 0.03 (0.00-0.10) 10^3/uL Immature Gran # (Auto) 0.01 (0.00-0.50) 10^3/uL PT 11.6 H D (9.2-11.2) SEC INR 1.1 (0.9-1.1) Sodium 144 (136-145) mmol/L Potassium 4.0 (3.5-5.1) mmol/L Chloride 105 (98-107) mmol/L Carbon Dioxide 26.8 (21.0-32.0) mmol/L Anion Gap 16.2 H (5-15) mmol/L BUN 22 H (7-18) mg/dL Creatinine 1.01 (0.51-1.17) mg/dL Est Cr Clr Drug Dosing TNP Estimated GFR (MDRD) > 60 mL/min Glucose 114 (70-140) mg/dL Calcium 8.6 L (8.7-10.3) mg/dL Magnesium (1.8-2.4) mg/dL Total Bilirubin 0.6 (0.2-1.0) mg/dL AST 19 (15-37) U/L ALT 20 (14-63) U/L Alkaline Phosphatase 77 (46-116) U/L Troponin I 0.048 (0.000-0.056) ng/mL B-Natriuretic Peptide (0-100) pg/mL Total Protein 7.0 (6.4-8.2) g/dL Albumin 3.61 (3.40-5.00) g/dL 03/04/21 03/05/21 03/05/21 Range/Units 13:05 07:45 07:45 WBC 8.33 (5.00-10.00) 10^3/uL RBC 4.40 L (4.50-6.00) 10^6/uL Hgb 13.0 (13.0-17.0) g/dL Hct 41.6 (40.0-52.0) % MCV 94.5 H (82.0-92.0) fL MCH 29.5 (27.0-31.0) pg MCHC 31.3 L (32.0-36.0) g/dL RDW 14.5 (11.5-14.5) % Plt Count 265 (150-400) 10^3/uL MPV 10.4 (7.4-10.4) fL Immature Gran % (Auto) 0.1 (0.0-5.0) % Neut % (Auto) 70.3 H (50.0-70.0) % Lymph % (Auto) 18.6 L (20.0-40.0) % Josephine % (Auto) 8.6 H (2.0-8.0) % Eos % (Auto) 2.2 (1.0-3.0) % Baso % (Auto) 0.2 (0.0-1.0) % Neut # (Auto) 5.85 (2.50-7.00) 10^3/uL Lymph # (Auto) 1.55 (1.00-4.00) 10^3/uL Josephine # (Auto) 0.72 (0.10-0.80) 10^3/uL Eos # (Auto) 0.18 (0.10-0.30) 10^3/uL Baso # (Auto) 0.02 (0.00-0.10) 10^3/uL Immature Gran # (Auto) 0.01 (0.00-0.50) 10^3/uL PT 11.8 H (9.2-11.2) SEC INR 1.2 H (0.9-1.1) Sodium (136-145) mmol/L Potassium (3.5-5.1) mmol/L Chloride (98-107) mmol/L Carbon Dioxide (21.0-32.0) mmol/L Anion Gap (5-15) mmol/L BUN (7-18) mg/dL Creatinine (0.51-1.17) mg/dL Est Cr Clr Drug Dosing Estimated GFR (MDRD) mL/min Glucose (70-140) mg/dL Calcium (8.7-10.3) mg/dL Magnesium 1.8 (1.8-2.4) mg/dL Total Bilirubin (0.2-1.0) mg/dL AST (15-37) U/L ALT (14-63) U/L Alkaline Phosphatase (46-116) U/L Troponin I (0.000-0.056) ng/mL B-Natriuretic Peptide 363 H (0-100) pg/mL Total Protein (6.4-8.2) g/dL Albumin (3.40-5.00) g/dL 03/05/21 Range/Units 07:45 WBC (5.00-10.00) 10^3/uL RBC (4.50-6.00) 10^6/uL Hgb (13.0-17.0) g/dL Hct (40.0-52.0) % MCV (82.0-92.0) fL MCH (27.0-31.0) pg MCHC (32.0-36.0) g/dL RDW (11.5-14.5) % Plt Count (150-400) 10^3/uL MPV (7.4-10.4) fL Immature Gran % (Auto) (0.0-5.0) % Neut % (Auto) (50.0-70.0) % Lymph % (Auto) (20.0-40.0) % Josephine % (Auto) (2.0-8.0) % Eos % (Auto) (1.0-3.0) % Baso % (Auto) (0.0-1.0) % Neut # (Auto) (2.50-7.00) 10^3/uL Lymph # (Auto) (1.00-4.00) 10^3/uL Josephine # (Auto) (0.10-0.80) 10^3/uL Eos # (Auto) (0.10-0.30) 10^3/uL Baso # (Auto) (0.00-0.10) 10^3/uL Immature Gran # (Auto) (0.00-0.50) 10^3/uL PT (9.2-11.2) SEC INR (0.9-1.1) Sodium 145 (136-145) mmol/L Potassium 3.7 (3.5-5.1) mmol/L Chloride 104 (98-107) mmol/L Carbon Dioxide 30.7 (21.0-32.0) mmol/L Anion Gap 14.0 (5-15) mmol/L BUN 22 H (7-18) mg/dL Creatinine 0.97 (0.51-1.17) mg/dL Est Cr Clr Drug Dosing 81.23 Estimated GFR (MDRD) > 60 mL/min Glucose 121 (70-140) mg/dL Calcium 8.3 L (8.7-10.3) mg/dL Magnesium (1.8-2.4) mg/dL Total Bilirubin (0.2-1.0) mg/dL AST (15-37) U/L ALT (14-63) U/L Alkaline Phosphatase (46-116) U/L Troponin I (0.000-0.056) ng/mL B-Natriuretic Peptide (0-100) pg/mL Total Protein (6.4-8.2) g/dL Albumin (3.40-5.00) g/dL Med Orders - Current: Current Medications Acetaminophen (Acetaminophen 650 Mg Tab.Er) 1,300 mg PO Q8H PRN PRN Reason: Pain Allopurinol (Allopurinol 100 Mg Tab) 100 mg PO DAILY [facility] Last Admin: 03/05/21 08:52 Dose: 100 mg Documented by: Carvedilol (Carvedilol 12.5 Mg Tab) 25 mg PO BIDMEALS [facility] Last Admin: 03/05/21 08:52 Dose: 25 mg Documented by: Diclofenac Sodium (Diclofenac Sodium 1% Gel 100 Gm Tube) 2 gm TOP Q6H PRN PRN Reason: Pain Digoxin (Digoxin 125 Mcg Tab) 125 mcg PO DAILY [facility] Last Admin: 03/05/21 08:51 Dose: 125 mcg Documented by: Furosemide (Furosemide 40 Mg/4 Ml Vial) 40 mg IVPUSH BID@0900,1600 [facility] Last Admin: 03/05/21 08:53 Dose: 40 mg Documented by: Gabapentin (Gabapentin 100 Mg Cap) 200 mg PO TID [facility] Last Admin: 03/05/21 08:51 Dose: 200 mg Documented by: Lisinopril (Lisinopril 20 Mg Tab) 20 mg PO BEDTIME [facility] Last Admin: 03/04/21 20:26 Dose: 20 mg Documented by: Melatonin (Melatonin 3 Mg Tab) 3 mg PO BEDTIME [facility] Last Admin: 03/04/21 20:22 Dose: 3 mg Documented by: Nystatin (Nystatin Crm 15 Gm Tube) 0 gm TOP TID [facility] Last Admin: 03/05/21 08:55 Dose: 1 applic Documented by: Potassium Chloride (Potassium Chloride 20 Meq Tab.Er) 20 meq PO DAILY [facility] Last Admin: 03/05/21 08:51 Dose: 20 meq Documented by: Sodium Chloride (Sodium Chloride 0.9% 10 Ml Syringe) 10 ml FLUSH Q8HR PRN PRN Reason: keep vein open Warfarin Sodium (Warfarin 5 Mg Tab) 5 mg PO DAILY@1800 [facility] Last Admin: 03/04/21 17:03 Dose: 5 mg Documented by: Warfarin Sodium (Pharmacy To Dose - Warfarin) 0 dose PO ASDIRECTED [facility] - Exam Quality Assessment: DVT Prophylaxis (On warfarin & Montez stockings). No: Supplemental Oxygen, Urine Catheter General: Alert, Oriented (x3), Cooperative, No Acute Distress Lungs: Normal Respiratory Effort, Decreased Breath Sounds (throughout lung pope), Wheezing (faint expiratory wheeze to all lung pope) Cardiovascular: No Murmurs, Irregular Rhythm, Tachycardia GI/Abdominal Exam: Normal Bowel Sounds, Soft, Distended (moderately, however large round abdomen), Tender (lower abdomen) Extremities: Other (1+ pitting edema to BLE, L>R) Skin: Warm, Dry, Rash (mildly erythematous rash to abdominal folds) Neurological: Normal Speech Psy/Mental Status: Alert, Normal Affect, Normal Mood #1 Interpretation EKG Date: 03/05/21 Time: 09:38 Rhythm: A-Fib Rate (Beats/Min): 92 [place]: LAD-Left [place] Deviation P-Wave: Absent QRS: Normal ST-T: Normal QT: Normal Comparison: Change From Previous EKG (no RVR at present) - Patient Data Lab Results Last 24 hrs: Laboratory Results - last 24 hr 03/04/21 03/04/21 03/04/21 Range/Units 13:05 13:05 13:05 WBC 10.83 H (5.00-10.00) 10^3/uL RBC 4.57 (4.50-6.00) 10^6/uL Hgb 13.5 (13.0-17.0) g/dL Hct 42.7 (40.0-52.0) % MCV 93.4 H D (82.0-92.0) fL MCH 29.5 (27.0-31.0) pg MCHC 31.6 L (32.0-36.0) g/dL RDW 14.7 H (11.5-14.5) % Plt Count 288 D (150-400) 10^3/uL MPV 10.4 (7.4-10.4) fL Immature Gran % (Auto) 0.1 (0.0-5.0) % Neut % (Auto) 77.6 H (50.0-70.0) % Lymph % (Auto) 14.5 L (20.0-40.0) % Josephine % (Auto) 6.6 (2.0-8.0) % Eos % (Auto) 0.9 L (1.0-3.0) % Baso % (Auto) 0.3 (0.0-1.0) % Neut # (Auto) 8.41 H (2.50-7.00) 10^3/uL Lymph # (Auto) 1.57 (1.00-4.00) 10^3/uL Josephine # (Auto) 0.71 (0.10-0.80) 10^3/uL Eos # (Auto) 0.10 (0.10-0.30) 10^3/uL Baso # (Auto) 0.03 (0.00-0.10) 10^3/uL Immature Gran # (Auto) 0.01 (0.00-0.50) 10^3/uL PT 11.6 H D (9.2-11.2) SEC INR 1.1 (0.9-1.1) Sodium 144 (136-145) mmol/L Potassium 4.0 (3.5-5.1) mmol/L Chloride 105 (98-107) mmol/L Carbon Dioxide 26.8 (21.0-32.0) mmol/L Anion Gap 16.2 H (5-15) mmol/L BUN 22 H (7-18) mg/dL Creatinine 1.01 (0.51-1.17) mg/dL Est Cr Clr Drug Dosing TNP Estimated GFR (MDRD) > 60 mL/min Glucose 114 (70-140) mg/dL Calcium 8.6 L (8.7-10.3) mg/dL Magnesium (1.8-2.4) mg/dL Total Bilirubin 0.6 (0.2-1.0) mg/dL AST 19 (15-37) U/L ALT 20 (14-63) U/L Alkaline Phosphatase 77 (46-116) U/L Troponin I 0.048 (0.000-0.056) ng/mL B-Natriuretic Peptide (0-100) pg/mL Total Protein 7.0 (6.4-8.2) g/dL Albumin 3.61 (3.40-5.00) g/dL 03/04/21 03/05/21 03/05/21 Range/Units 13:05 07:45 07:45 WBC 8.33 (5.00-10.00) 10^3/uL RBC 4.40 L (4.50-6.00) 10^6/uL Hgb 13.0 (13.0-17.0) g/dL Hct 41.6 (40.0-52.0) % MCV 94.5 H (82.0-92.0) fL MCH 29.5 (27.0-31.0) pg MCHC 31.3 L (32.0-36.0) g/dL RDW 14.5 (11.5-14.5) % Plt Count 265 (150-400) 10^3/uL MPV 10.4 (7.4-10.4) fL Immature Gran % (Auto) 0.1 (0.0-5.0) % Neut % (Auto) 70.3 H (50.0-70.0) % Lymph % (Auto) 18.6 L (20.0-40.0) % Josephine % (Auto) 8.6 H (2.0-8.0) % Eos % (Auto) 2.2 (1.0-3.0) % Baso % (Auto) 0.2 (0.0-1.0) % Neut # (Auto) 5.85 (2.50-7.00) 10^3/uL Lymph # (Auto) 1.55 (1.00-4.00) 10^3/uL Josephine # (Auto) 0.72 (0.10-0.80) 10^3/uL Eos # (Auto) 0.18 (0.10-0.30) 10^3/uL Baso # (Auto) 0.02 (0.00-0.10) 10^3/uL Immature Gran # (Auto) 0.01 (0.00-0.50) 10^3/uL PT 11.8 H (9.2-11.2) SEC INR 1.2 H (0.9-1.1) Sodium (136-145) mmol/L Potassium (3.5-5.1) mmol/L Chloride (98-107) mmol/L Carbon Dioxide (21.0-32.0) mmol/L Anion Gap (5-15) mmol/L BUN (7-18) mg/dL Creatinine (0.51-1.17) mg/dL Est Cr Clr Drug Dosing Estimated GFR (MDRD) mL/min Glucose (70-140) mg/dL Calcium (8.7-10.3) mg/dL Magnesium 1.8 (1.8-2.4) mg/dL Total Bilirubin (0.2-1.0) mg/dL AST (15-37) U/L ALT (14-63) U/L Alkaline Phosphatase (46-116) U/L Troponin I (0.000-0.056) ng/mL B-Natriuretic Peptide 363 H (0-100) pg/mL Total Protein (6.4-8.2) g/dL Albumin (3.40-5.00) g/dL 03/05/21 Range/Units 07:45 WBC (5.00-10.00) 10^3/uL RBC (4.50-6.00) 10^6/uL Hgb (13.0-17.0) g/dL Hct (40.0-52.0) % MCV (82.0-92.0) fL MCH (27.0-31.0) pg MCHC (32.0-36.0) g/dL RDW (11.5-14.5) % Plt Count (150-400) 10^3/uL MPV (7.4-10.4) fL Immature Gran % (Auto) (0.0-5.0) % Neut % (Auto) (50.0-70.0) % Lymph % (Auto) (20.0-40.0) % Josephine % (Auto) (2.0-8.0) % Eos % (Auto) (1.0-3.0) % Baso % (Auto) (0.0-1.0) % Neut # (Auto) (2.50-7.00) 10^3/uL Lymph # (Auto) (1.00-4.00) 10^3/uL Josephine # (Auto) (0.10-0.80) 10^3/uL Eos # (Auto) (0.10-0.30) 10^3/uL Baso # (Auto) (0.00-0.10) 10^3/uL Immature Gran # (Auto) (0.00-0.50) 10^3/uL PT (9.2-11.2) SEC INR (0.9-1.1) Sodium 145 (136-145) mmol/L Potassium 3.7 (3.5-5.1) mmol/L Chloride 104 (98-107) mmol/L Carbon Dioxide 30.7 (21.0-32.0) mmol/L Anion Gap 14.0 (5-15) mmol/L BUN 22 H (7-18) mg/dL Creatinine 0.97 (0.51-1.17) mg/dL Est Cr Clr Drug Dosing 81.23 Estimated GFR (MDRD) > 60 mL/min Glucose 121 (70-140) mg/dL Calcium 8.3 L (8.7-10.3) mg/dL Magnesium (1.8-2.4) mg/dL Total Bilirubin (0.2-1.0) mg/dL AST (15-37) U/L ALT (14-63) U/L Alkaline Phosphatase (46-116) U/L Troponin I (0.000-0.056) ng/mL B-Natriuretic Peptide (0-100) pg/mL Total Protein (6.4-8.2) g/dL Albumin (3.40-5.00) g/dL Result Diagrams: 03/05/21 07:45 03/05/21 07:45 Sepsis Event Note - Evaluation Sepsis Screening Result: No Definite Risk - Focused Exam Vital Signs: Vital Signs Temp Pulse Pulse Resp BP BP Pulse Ox 03/05/21 08:52 93 118/74 03/05/21 08:51 93 03/05/21 06:48 96.1 F L 80 22 H 98/58 L 94 L 03/05/21 03:00 97.0 F 62 28 H 108/71 93 L 03/04/21 23:00 97.0 F 88 28 H 120/86 93 L - Problem List Review Problem List Initiated/Reviewed/Updated: Yes - My Orders Last 24 Hours: My Active Orders 03/04/21 17:00 Nystatin [Nystatin Crm] See Dose Instructions TOP TID 03/05/21 09:08 EKG Documentation Completion [RC] ASDIRECTED EKG 12 Lead [EK] Urgent 03/05/21 09:10 Code Status [Resuscitation Status] Routine 03/06/21 05:11 BASIC METABOLIC PANEL,BMP [CHEM] AM - Plan Plan:: HPI: This is a 71 yo male who presented to an [facility] for increasing shortness of breath and fluid/weight gain. He had been seen the week prior for concerns of penile edema. He was referred to urology and it was felt all the edema was related to fluid overload. He was admitted for IV diuresis and telemetry monitoring. Hospital course: 03/04/21: Admission work-up included labs, EKG, & CXR. WBC 10.8, INR 1.1, K 4.0, Creatinine 1.04, BNP 363, Troponin 0.048, LFTs wnl. COVID19 negative. EKG noted atrial fibrillation with RVR at 114 bpm. CXR notable for cardiomegaly & central vascular congestion; no effusions or other signs of fluid retention. He was given IV lasix 40 mg BID and monitored with accurate I & Os and daily weights. 03/05/21: No calls overnight. Nursing reports that his HR dropped into the 30s while sleeping last night. Patient denies any dizziness, CP, SOB, or palpitations. Has some pain to his lower abdomen, a rash to his abdominal folds, and continued penile/scrotal swelling. Denies any issues urinating. VS: T 96.1F, HR 80, BP 98/58, RR 22, O2 sat 94% on room air. I: 800, O: 2800. Wt down 8.5 lbs. WBC 8.3, Hgb 13.0, INR 1.2, Na 145, K 3.7, BUN 22, Ct 0.97, GFR >60. Noted to be in Vtach occasionally on monitoring manager, so repeat EKG was obtained and noted atrial fibrillation at 92 bpm with LAD & RBB. Hospitalization problems and plan: # HFrEF, acute exacerbation. ECHO (08/2020) EF 20%, global hypokinesis w/sparing of variable septal segments, dilated left ventricle. # Rule out nocturnal hypoxia. Did not follow through with previously recommended sleep study. # Nonischemic cardiomyopathy. LHC (09/09/20) revealed normal coronaries. Has history of noncompliance with life vest use so no longer wears this. # Chronic atrial fibrillation with intermittent RVR. # Penile edema. # Dermatitis of abdominal folds. # Noncompliance with medical care. - Continue IV lasix 40 mg BID - Continue daily weights & accurate I & O - Continue telemetry & VS q4h - Overnight oximetry (continuous) - BMP in AM - Continue coreg 25 mg BID, lisinopril 20 mg daily, warfarin per pharmacy, potassium 20 mEq daily, and digoxin 125 mcg daily - Continue Nystatin ointment TID to abd folds Chronic, stable conditions: # HTN. LDL 86 (08/2020). Lipid panel in AM. # Mild-moderate mitral regurgitation. # Chronic gout. Continue allopurinol. Uric acid 10.3 (08/2020). # History of anemia. Hgb 13.0. # Chronic knee pain. Continue tylenol CR 650 mg q8h prn & diclofenac top q6h prn. # Chronic LBP. Continue on gabapentin 200 mg TID. # Insomnia. Continue melatonin 3 mg at HS. # Prediabetes. Last A1c 5.9 (08/2020). A1c in AM. Hospitalization details: # FEN: Saline lock. Electrolytes wnl. 2 gm sodium diet. # PPX: On warfarin. # Code status: DNR/DNI. Reviewed code status with patient this morning on rounds along with the POLST form. Patient updated his previous wishes to reflect DNR/DNI. He is alert and oriented x 3. POLST form completed. # Emergency contact: Jonathan Ganr, brother. # Disposition: He will remain in inpatient status with telemetry for at least 2 more days pending his fluid status. He will likely benefit from spironolactone and/or Entresto use upon discharge.
[2021-03-05] MEDS: Simethicone 80 MG Tab.Chew PO PRN ×2 (12:24→16:58)
[2021-03-05] MEDS: Warfarin 5 MG Tab PO SCH (18:11)
[2021-03-05] MEDS: Lisinopril 20 MG Tab PO SCH (20:14)
[2021-03-05] MEDS: Melatonin 3 MG Tab PO SCH (20:17)
[2021-03-06 08:00] LABS: HEMOGLOBIN A1C 6.7 % (4.3-5.7)
[2021-03-06] MEDS: Furosemide 40 MG/4 ML VIAL IVPUSH SCH ×2 (08:08→16:19)
[2021-03-06] MEDS: Gabapentin 100 MG Cap PO SCH ×3 (08:09→20:04)
[2021-03-06] MEDS: Potassium Chloride 20 MEQ Tab.ER PO SCH (08:09)
[2021-03-06] MEDS: Allopurinol 100 MG Tab PO SCH (08:09)
[2021-03-06 08:10] LABS: ANION GAP 10.4 mmol/L (5-15); CHLORIDE,CL 103 mmol/L (98-107); SODIUM,NA 144 mmol/L (136-145)
[2021-03-06] MEDS: Carvedilol 12.5 MG Tab PO SCH ×2 (08:11→18:13)
[2021-03-06] MEDS: Digoxin 125 MCG Tab PO SCH (08:11)
[2021-03-06] MEDS: Nystatin Crm 15 GM Tube TOP SCH ×3 (08:27→20:04)
--- NOTE | 2021-03-06 09:55 | PCM.PN ---
- General Info Date of Service: 03/06/21 Functional Status: Reports: Pain Controlled, Tolerating Diet, Urinating. Denies: New Symptoms - Review of Systems General: Reports: Weakness, Fatigue. Denies: Fever, Chills HEENT: Denies: Headaches Pulmonary: Denies: Shortness of Breath Cardiovascular: Reports: Dyspnea on Exertion, Edema. Denies: Chest Pain, Palpitations, Lightheadedness Gastrointestinal: Reports: Nausea (yesterday, resolved). Denies: Abdominal Pain, Constipation, Decreased Appetite, Diarrhea, Vomiting Genitourinary: Reports: No Symptoms Neurological: Denies: Confusion, Dizziness, Headache Psychiatric: Reports: No Symptoms - Patient Data Vitals - Most Recent: Last Vital Signs Temp 97.1 F 03/06/21 05:54 Pulse 95 03/06/21 08:11 Resp 24 H 03/06/21 05:54 BP 131/83 03/06/21 08:11 Pulse Ox 93 L 03/06/21 06:00 Weight - Most Recent: 291 lb I&O - Last 24 Hours: Intake & Output 03/05/21 03/06/21 03/06/21 22:59 06:59 14:59 Intake Total 420 240 Output Total 1400 500 Balance -980 -260 Lab Results Last 24 Hours: Laboratory Results - last 24 hr 03/06/21 03/06/21 Range/Units 07:40 07:40 PT 11.3 H (9.2-11.2) SEC INR 1.1 (0.9-1.1) Sodium 144 (136-145) mmol/L Potassium 4.3 (3.5-5.1) mmol/L Chloride 103 (98-107) mmol/L Carbon Dioxide 34.9 H (21.0-32.0) mmol/L Anion Gap 10.4 (5-15) mmol/L BUN 22 H (7-18) mg/dL Creatinine 1.03 (0.51-1.17) mg/dL Est Cr Clr Drug Dosing 76.50 mL/min Estimated GFR (MDRD) > 60 mL/min Glucose 123 (70-140) mg/dL Hemoglobin A1c 6.7 H (4.3-5.7) % Calcium 8.5 L (8.7-10.3) mg/dL Triglycerides 79 (30-150) mg/dL Cholesterol 104 (100-200) mg/dL LDL Cholesterol, Calc 63 (0-100) mg/dL HDL Cholesterol 25 L (40-60) mg/dL Med Orders - Current: Current Medications Acetaminophen (Acetaminophen 650 Mg Tab.Er) 1,300 mg PO Q8H PRN PRN Reason: Pain Allopurinol (Allopurinol 100 Mg Tab) 100 mg PO DAILY [facility] Last Admin: 03/06/21 08:09 Dose: 100 mg Documented by: Carvedilol (Carvedilol 12.5 Mg Tab) 25 mg PO BIDMEALS [facility] Last Admin: 03/06/21 08:11 Dose: 25 mg Documented by: Diclofenac Sodium (Diclofenac Sodium 1% Gel 100 Gm Tube) 2 gm TOP Q6H PRN PRN Reason: Pain Digoxin (Digoxin 125 Mcg Tab) 125 mcg PO DAILY [facility] Last Admin: 03/06/21 08:11 Dose: 125 mcg Documented by: Furosemide (Furosemide 40 Mg/4 Ml Vial) 40 mg IVPUSH BID@0900,1600 [facility] Last Admin: 03/06/21 08:08 Dose: 40 mg Documented by: Gabapentin (Gabapentin 100 Mg Cap) 200 mg PO TID [facility] Last Admin: 03/06/21 08:09 Dose: 200 mg Documented by: Lisinopril (Lisinopril 20 Mg Tab) 20 mg PO BEDTIME [facility] Last Admin: 03/05/21 20:14 Dose: 20 mg Documented by: Melatonin (Melatonin 3 Mg Tab) 3 mg PO BEDTIME [facility] Last Admin: 03/05/21 20:17 Dose: 3 mg Documented by: Nystatin (Nystatin Crm 15 Gm Tube) 0 gm TOP TID [facility] Last Admin: 03/06/21 08:27 Dose: 1 applic Documented by: Potassium Chloride (Potassium Chloride 20 Meq Tab.Er) 20 meq PO DAILY [facility] Last Admin: 03/06/21 08:09 Dose: 20 meq Documented by: Simethicone (Simethicone 80 Mg Tab.Chew) 80 mg PO Q4H PRN PRN Reason: Heartburn Last Admin: 03/05/21 16:58 Dose: 80 mg Documented by: Sodium Chloride (Sodium Chloride 0.9% 10 Ml Syringe) 10 ml FLUSH Q8HR PRN PRN Reason: keep vein open Warfarin Sodium (Pharmacy To Dose - Warfarin) 0 dose PO ASDIRECTED [facility] Warfarin Sodium (Warfarin 5 Mg Tab) 5 mg PO DAILY@1800 [facility] Warfarin Sodium (Warfarin 2.5 Mg Tab) 7.5 mg PO ONETIME ONE Stop: 03/06/21 18:01 Discontinued Medications Warfarin Sodium (Warfarin 5 Mg Tab) 5 mg PO DAILY@1800 [facility] Last Admin: 03/05/21 18:11 Dose: 5 mg Documented by: - Exam Quality Assessment: DVT Prophylaxis (On warfarin). No: Supplemental Oxygen, Urine Catheter General: Alert, Oriented (x3), Cooperative, No Acute Distress Lungs: Normal Respiratory Effort, Decreased Breath Sounds (throughout) Cardiovascular: Regular Rate, No Murmurs, Irregular Rhythm, Other (distant heart sounds) Extremities: Other (trace-1+ pitting edema to BLE) Skin: Warm, Dry Neurological: Normal Gait, Normal Speech, Normal Tone Psy/Mental Status: Alert, Normal Affect, Normal Mood - Patient Data Lab Results Last 24 hrs: Laboratory Results - last 24 hr 03/06/21 03/06/21 Range/Units 07:40 07:40 PT 11.3 H (9.2-11.2) SEC INR 1.1 (0.9-1.1) Sodium 144 (136-145) mmol/L Potassium 4.3 (3.5-5.1) mmol/L Chloride 103 (98-107) mmol/L Carbon Dioxide 34.9 H (21.0-32.0) mmol/L Anion Gap 10.4 (5-15) mmol/L BUN 22 H (7-18) mg/dL Creatinine 1.03 (0.51-1.17) mg/dL Est Cr Clr Drug Dosing 76.50 mL/min Estimated GFR (MDRD) > 60 mL/min Glucose 123 (70-140) mg/dL Hemoglobin A1c 6.7 H (4.3-5.7) % Calcium 8.5 L (8.7-10.3) mg/dL Triglycerides 79 (30-150) mg/dL Cholesterol 104 (100-200) mg/dL LDL Cholesterol, Calc 63 (0-100) mg/dL HDL Cholesterol 25 L (40-60) mg/dL Result Diagrams: 03/05/21 07:45 03/06/21 07:40 Sepsis Event Note - Evaluation Sepsis Screening Result: No Definite Risk - Focused Exam Vital Signs: Vital Signs Temp Pulse Pulse Resp BP BP BP 03/06/21 08:11 95 131/83 03/06/21 06:00 04/18/21 05:54 97.1 F 82 24 H 120/78 03/06/21 05:00 03/06/21 04:00 03/06/21 03:00 03/06/21 02:11 98.1 F 84 24 H 91/56 L 03/06/21 02:00 03/06/21 01:00 03/06/21 00:00 03/05/21 23:00 03/05/21 22:50 97.2 F 83 24 H 103/69 03/05/21 22:00 Pulse Ox 03/06/21 08:11 03/06/21 06:00 93 L 03/06/21 05:54 94 L 03/06/21 05:00 95 03/06/21 04:00 98 03/06/21 03:00 91 L 03/06/21 02:11 95 03/06/21 02:00 93 L 03/06/21 01:00 93 L 03/06/21 00:00 91 L 03/05/21 23:00 91 L 03/05/21 22:50 93 L 03/05/21 22:00 95 - Problem List Review Problem List Initiated/Reviewed/Updated: Yes - My Orders Last 24 Hours: My Active Orders 03/05/21 09:08 EKG Documentation Completion [RC] ASDIRECTED EKG 12 Lead [EK] Urgent 03/05/21 09:10 Code Status [Resuscitation Status] Routine 03/05/21 09:52 Antiembolic Devices [RC] 0900,2100 ABBE Hose [Antiembolic Hose] [OM.PC] Routine 03/05/21 12:17 Simethicone 80 mg PO Q4H PRN 03/06/21 09:39 Consult to Case Management/Gut Cleaner [CONS] Routine 03/06/21 09:40 Up With Assistance [RC] ASDIRECTED Consult to Physical Therapy [PT Evaluation and Treatment] [CONS] Routine 03/06/21 09:41 Oxygen Therapy [RC] ASDIRECTED 03/06/21 09:42 Vital Signs [RC] Q8H 03/07/21 05:11 BMP [BASIC METABOLIC PANEL,BMP] [CHEM] AM DIGOXIN [CHEM] AM - Plan Plan:: HPI: This is a 71 yo male who presented to an [facility] for increasing shortness of breath and fluid/weight gain. He had been seen the week prior for concerns of penile edema. He was referred to urology and it was felt all the edema was related to fluid overload. He was admitted for IV diuresis and telemetry monitoring. Hospital course: 03/04/21: Admission work-up included labs, EKG, & CXR. WBC 10.8, INR 1.1, K 4.0, Creatinine 1.04, BNP 363, Troponin 0.048, LFTs wnl. COVID19 negative. EKG noted atrial fibrillation with RVR at 114 bpm. CXR notable for cardiomegaly & central vascular congestion; no effusions or other signs of fluid retention. He was given IV lasix 40 mg BID and monitored with accurate I & Os and daily weights. 03/05/21: No calls overnight. Nursing reports that his HR dropped into the 30s while sleeping last night. Patient denies any dizziness, CP, SOB, or pal pitations. Has some pain to his lower abdomen, a rash to his abdominal folds, and continued penile/scrotal swelling. Denies any issues urinating. VS: T 96.1F, HR 80, BP 98/58, RR 22, O2 sat 94% on room air. I: 800, O: 2800. Wt down 8.5 lbs. WBC 8.3, Hgb 13.0, INR 1.2, Na 145, K 3.7, BUN 22, Ct 0.97, GFR >60. Noted to be in Vtach occasionally on general magistrate, so repeat EKG was obtained and noted atrial fibrillation at 92 bpm with LAD & RBB. 03/06/21: No calls overnight. Nursing reports that his HR dropped into the 30s twice while he was sleeping. O2 sat while sleeping was 87%, so 2 liters of oxygen was applied with improvement to 93-94%. Patient reports that he had an episode of GI upset yesterday, but that has improved. Denies any other concerns. VS: T 97.1F, HR 82, BP 120/78, RR 24, O2 sat 94% on 2 liters per nasal cannula. I: 1160, O:3100. Wt down a total of 10.5 lbs since admission. Unsure of exact dry weight, but when he was discharged from [place] in 2019 he was 268.8 lbs. He states his dry weight is around 240 lbs. Na 144, K 4.3, BUN 22, Ct 1.03, A1c 6.7, LDL 63, INR 1.1. Hospitalization problems and plan: # HFrEF, acute exacerbation, improving. ECHO (08/2020) EF 20%, global hypokinesis w/sparing of variable septal segments, dilated left ventricle. # Nocturnal hypoxia with suspected HAILEY. Did not follow through with previously recommended sleep study. # Nonischemic cardiomyopathy. LHC (09/09/20) revealed normal coronaries. Has history of noncompliance with life vest use so no longer wears this. # Chronic atrial fibrillation with intermittent RVR. # Penile edema. # Dermatitis of abdominal folds. # Noncompliance with medical care. # Deconditioning. - Continue IV lasix 40 mg BID - Continue daily weights & accurate I & O - Discontinue telemetry & change VS to q8h - O2 at 2 liters per nasal cannula while sleeping - BMP, digoxin level in AM - Continue coreg 25 mg BID, lisinopril 20 mg daily, warfarin per pharmacy, potassium 20 mEq daily, and digoxin 125 mcg daily - Continue Nystatin ointment TID to abd folds - SS consult for discharge planning; patient prefers to stay swingbed for rehab if deemed necessary - PT consult for deconditioning - Up in [place] QI with assistance today Chronic, stable conditions: # HTN. LDL 63. Not on a statin. # Mild-moderate mitral regurgitation. # Chronic gout. Continue allopurinol. Uric acid 10.3 (08/2020). # History of anemia. Hgb 13.0. # Chronic knee pain. Continue tylenol CR 650 mg q8h prn & diclofenac top q6h prn. # Chronic LBP. Continue on gabapentin 200 mg TID. # Insomnia. Continue melatonin 3 mg at HS. # T2DM, new. Last A1c 5.9 (08/2020). A1c 6.7. Consideration for starting metformin, however will wait until IV lasix is done so as not to stress his kidneys. Will add ADA diet. Hospitalization details: # FEN: Saline lock. Electrolytes wnl. 2 gm sodium diet changed to ADA. # PPX: On warfarin. # Code status: DNR/DNI. Reviewed code status with patient on rounds along with the POLST form. Patient updated his previous wishes to reflect DNR/DNI. He is alert and oriented x 3. POLST form completed. Copy faxed to [facility] for that chart. # Emergency contact: Jonathan Ganr, brother. # Disposition: He will remain in inpatient status for IV diuresis for at least 1-2 more days. If he qualifies for rehabilitation, patient prefers to stay in swingbed here. He will likely benefit from spironolactone and/or Entresto use upon discharge.
[2021-03-06] MEDS ORDERED: Warfarin 2.5 MG Tab PO ONE (18:00)
[2021-03-06] MEDS: Melatonin 3 MG Tab PO SCH (20:04)
[2021-03-06] MEDS: Lisinopril 20 MG Tab PO SCH (20:10)
[2021-03-06] MEDS: Simethicone 80 MG Tab.Chew PO PRN (21:18)
[2021-03-07] MEDS: Carvedilol 12.5 MG Tab PO SCH ×2 (08:00→18:28)
[2021-03-07 08:18] LABS: ANION GAP 9.6 mmol/L (5-15); CHLORIDE,CL 103 mmol/L (98-107); SODIUM,NA 143 mmol/L (136-145)
[2021-03-07] MEDS: Potassium Chloride 20 MEQ Tab.ER PO SCH (08:43)
[2021-03-07] MEDS: Allopurinol 100 MG Tab PO SCH (08:43)
[2021-03-07] MEDS: Digoxin 125 MCG Tab PO SCH (08:43)
[2021-03-07] MEDS: Furosemide 40 MG/4 ML VIAL IVPUSH SCH ×2 (08:44→16:36)
[2021-03-07] MEDS: Gabapentin 100 MG Cap PO SCH ×3 (08:44→20:25)
--- NOTE | 2021-03-07 09:10 | PCM.PN ---
- General Info Date of Service: 03/07/21 Functional Status: Reports: Pain Controlled, Tolerating Diet, Urinating. Denies: Ambulating, New Symptoms - Review of Systems General: Reports: Weakness. Denies: Fever, Fatigue, Chills HEENT: Denies: Headaches Pulmonary: Denies: Shortness of Breath Cardiovascular: Reports: Dyspnea on Exertion, Edema. Denies: Chest Pain Gastrointestinal: Reports: Abdominal Pain (lower abdomen). Denies: Constipation, Decreased Appetite, Diarrhea, Nausea, Vomiting Genitourinary: Reports: No Symptoms Neurological: Denies: Dizziness, Headache Psychiatric: Reports: No Symptoms - Patient Data Vitals - Most Recent: Last Vital Signs Temp 97.6 F 03/07/21 06:49 Pulse 67 03/07/21 08:43 Resp 20 03/07/21 06:49 BP 117/85 03/07/21 08:00 Pulse Ox 95 03/07/21 06:49 Weight - Most Recent: 287 lb 4 oz I&O - Last 24 Hours: Intake & Output 03/06/21 03/07/21 03/07/21 22:59 06:59 14:59 Intake Total 520 240 Output Total 700 600 Balance -180 -360 Lab Results Last 24 Hours: Laboratory Results - last 24 hr 03/07/21 03/07/21 Range/Units 07:50 07:50 PT 12.8 H (9.2-11.2) SEC INR 1.3 H (0.9-1.1) Sodium 143 (136-145) mmol/L Potassium 4.4 (3.5-5.1) mmol/L Chloride 103 (98-107) mmol/L Carbon Dioxide 34.8 H (21.0-32.0) mmol/L Anion Gap 9.6 (5-15) mmol/L BUN 21 H (7-18) mg/dL Creatinine 1.02 (0.51-1.17) mg/dL Est Cr Clr Drug Dosing 77.25 mL/min Estimated GFR (MDRD) > 60 mL/min Glucose 122 (70-140) mg/dL Calcium 8.5 L (8.7-10.3) mg/dL Digoxin 0.21 L (0.90-2.00) ng/mL Med Orders - Current: Current Medications Acetaminophen (Acetaminophen 650 Mg Tab.Er) 1,300 mg PO Q8H PRN PRN Reason: Pain Allopurinol (Allopurinol 100 Mg Tab) 100 mg PO DAILY [facility] Last Admin: 03/07/21 08:43 Dose: 100 mg Documented by: Carvedilol (Carvedilol 12.5 Mg Tab) 25 mg PO BIDMEALS [facility] Last Admin: 03/07/21 08:00 Dose: 25 mg Documented by: Diclofenac Sodium (Diclofenac Sodium 1% Gel 100 Gm Tube) 2 gm TOP Q6H PRN PRN Reason: Pain Digoxin (Digoxin 125 Mcg Tab) 125 mcg PO DAILY [facility] Last Admin: 03/07/21 08:43 Dose: 125 mcg Documented by: Furosemide (Furosemide 40 Mg/4 Ml Vial) 40 mg IVPUSH BID@0900,1600 [facility] Last Admin: 03/07/21 08:44 Dose: 40 mg Documented by: Gabapentin (Gabapentin 100 Mg Cap) 200 mg PO TID [facility] Last Admin: 03/07/21 08:44 Dose: 200 mg Documented by: Lisinopril (Lisinopril 20 Mg Tab) 20 mg PO BEDTIME [facility] Last Admin: 03/06/21 20:10 Dose: 20 mg Documented by: Melatonin (Melatonin 3 Mg Tab) 3 mg PO BEDTIME [facility] Last Admin: 03/06/21 20:04 Dose: 3 mg Documented by: Nystatin (Nystatin Crm 15 Gm Tube) 0 gm TOP TID [facility] Last Admin: 03/06/21 20:04 Dose: 1 applic Documented by: Potassium Chloride (Potassium Chloride 20 Meq Tab.Er) 20 meq PO DAILY [facility] Last Admin: 03/07/21 08:43 Dose: 20 meq Documented by: Simethicone (Simethicone 80 Mg Tab.Chew) 80 mg PO Q4H PRN PRN Reason: Heartburn Last Admin: 03/06/21 21:18 Dose: 80 mg Documented by: Sodium Chloride (Sodium Chloride 0.9% 10 Ml Syringe) 10 ml FLUSH Q8HR PRN PRN Reason: keep vein open Spironolactone (Spironolactone 25 Mg Tab) 25 mg PO DAILY [facility] Warfarin Sodium (Pharmacy To Dose - Warfarin) 0 dose PO ASDIRECTED [facility] Warfarin Sodium (Warfarin 5 Mg Tab) 5 mg PO DAILY@1800 [facility] Discontinued Medications Warfarin Sodium (Warfarin 5 Mg Tab) 5 mg PO DAILY@1800 [facility] Last Admin: 03/05/21 18:11 Dose: 5 mg Documented by: Warfarin Sodium (Warfarin 2.5 Mg Tab) 7.5 mg PO ONETIME ONE Stop: 03/06/21 18:01 Last Admin: 03/06/21 18:12 Dose: 7.5 mg Documented by: - Exam Quality Assessment: Supplemental Oxygen (2 liters at HS), DVT Prophylaxis (On warfarin). No: Urine Catheter General: Alert, Oriented (x3), Cooperative, No Acute Distress Lungs: Clear to Auscultation, Normal Respiratory Effort Cardiovascular: Regular Rate, No Murmurs, Irregular Rhythm, Other (Distant heart sounds) GI/Abdominal Exam: Distended (mild, however large round abdomen chronically), Tender (lower aspect at rash line) (Male) Exam: Other (moderate penile/scrotal edema present) Extremities: Other (trace-1+ pitting edema to LLE, trace edema to RLE) Skin: Warm, Dry, Rash (pink to red area in lower abdominal crease, no wounds) Neurological: Normal Gait, Normal Speech Psy/Mental Status: Alert, Normal Affect, Normal Mood - Patient Data Lab Results Last 24 hrs: Laboratory Results - last 24 hr 03/07/21 03/07/21 Range/Units 07:50 07:50 PT 12.8 H (9.2-11.2) SEC INR 1.3 H (0.9-1.1) Sodium 143 (136-145) mmol/L Potassium 4.4 (3.5-5.1) mmol/L Chloride 103 (98-107) mmol/L Carbon Dioxide 34.8 H (21.0-32.0) mmol/L Anion Gap 9.6 (5-15) mmol/L BUN 21 H (7-18) mg/dL Creatinine 1.02 (0.51-1.17) mg/dL Est Cr Clr Drug Dosing 77.25 mL/min Estimated GFR (MDRD) > 60 mL/min Glucose 122 (70-140) mg/dL Calcium 8.5 L (8.7-10.3) mg/dL Digoxin 0.21 L (0.90-2.00) ng/mL Result Diagrams: 03/05/21 07:45 03/07/21 07:50 Sepsis Event Note - Evaluation Sepsis Screening Result: No Definite Risk - Focused Exam Vital Signs: Vital Signs Temp Pulse Pulse Resp BP BP Pulse Ox 03/07/21 08:43 67 03/07/21 08:00 67 117/85 03/07/21 06:49 97.6 F 88 20 106/77 95 03/06/21 22:46 96.9 F 81 20 96/73 94 L - Problem List Review Problem List Initiated/Reviewed/Updated: Yes - My Orders Last 24 Hours: My Active Orders 03/06/21 09:39 Consult to Case Management/Touch Up Worker [CONS] Routine 03/06/21 09:40 Up With Assistance [RC] ASDIRECTED Consult to Physical Therapy [PT Evaluation and Treatment] [CONS] Routine 03/06/21 09:41 Oxygen Therapy [RC] ASDIRECTED 03/06/21 09:42 Vital Signs [RC] 0700,1500,2300 03/06/21 Lunch ADA Diabetic [[employer] [employer] Diet] [DIET] 03/07/21 09:15 Spironolactone [Aldactone] 25 mg PO DAILY 03/08/21 05:11 BASIC METABOLIC PANEL,BMP [CHEM] AM - Plan Plan:: HPI: This is a 71 yo male who presented to an [facility] for increasing shortness of breath and fluid/weight gain. He had been seen the week prior for concerns of penile edema. He was referred to urology and it was felt all the edema was related to fluid overload. He was admitted for IV diuresis and telemetry monitoring. Hospital course: 03/04/21: Admission work-up included labs, EKG, & CXR. WBC 10.8, INR 1.1, K 4.0, Creatinine 1.04, BNP 363, Troponin 0.048, LFTs wnl. COVID19 negative. EKG noted atrial fibrillation with RVR at 114 bpm. CXR notable for cardiomegaly & central vascular congestion; no effusions or other signs of fluid retention. He was given IV lasix 40 mg BID and monitored with accurate I & Os and daily weights. 03/05/21: No calls overnight. Nursing reports that his HR dropped into the 30s while sleeping last night. Patient denies any dizziness, CP, SOB, or palpitations. Has some pain to his lower abdomen, a rash to his abdominal folds, and continued penile/scrotal swelling. Denies any issues urinating. VS: T 96.1F, HR 80, BP 98/58, RR 22, O2 sat 94% on room air. I: 800, O: 2800. Wt down 8.5 lbs. WBC 8.3, Hgb 13.0, INR 1.2, Na 145, K 3.7, BUN 22, Ct 0.97, GFR >60. Noted to be in Vtach occasionally on playground monitor, so repeat EKG was obtained and noted atrial fibrillation at 92 bpm with LAD & RBB. 03/06/21: No calls overnight. Nursing reports that his HR dropped into the 30s twice while he was sleeping. O2 sat while sleeping was 87%, so 2 liters of oxygen was applied with improvement to 93-94%. Patient reports that he had an episode of GI upset yesterday, but that has improved. Denies any other concerns. VS: T 97.1F, HR 82, BP 120/78, RR 24, O2 sat 94% on 2 liters per nasal cannula. I: 1160, O:3100. Wt down a total of 10.5 lbs since admission. Unsure of exact dry weight, but when he was discharged from [place] in 2019 he was 268.8 lbs. He states his dry weight is around 240 lbs. Na 144, K 4.3, BUN 22, Ct 1.03, A1c 6.7, LDL 63, INR 1.1. 03/07/21: No calls overnight. Nursing reports he had an episode of GI upset yesterday afternoon, which was relieved by simethicone. Denies any symptoms this AM. Notes penile edema is improving. VS: T 97.6F, HR 88, BP 106/77, RR 20, O2 sat 95% on 2 liters NC. Down another 3.6# for a total of 14#. I: 1460, O: 1600. Digoxin level 0.21 (L), Na 143, K 4.4, Ct 1.02, BUN 21, GFR >60, INR 1.3. Hospitalization problems and plan: # HFrEF, acute exacerbation, improving. ECHO (08/2020) EF 20%, global hypokinesis w/sparing of variable septal segments, dilated left ventricle. # Nocturnal hypoxia with suspected HAILEY. Did not follow through with previously recommended sleep study. # Nonischemic cardiomyopathy. LHC (09/09/20) revealed normal coronaries. Has history of noncompliance with life vest use so no longer wears this. # Chronic atrial fibrillation with intermittent RVR. # Penile edema, improving. # Dermatitis of abdominal folds, improving. # Noncompliance with medical care. # Deconditioning. - Continue IV lasix 40 mg BID x 1 more day, then switch to oral lasix - Add spironolactone 25 mg po daily - Continue daily weights & accurate I & O - VS q8h - O2 at 2 liters per nasal cannula while sleeping - BMP in AM - Continue coreg 25 mg BID, lisinopril 20 mg daily, warfarin per pharmacy, potassium 20 mEq daily, and digoxin 125 mcg daily - Continue Nystatin ointment TID to abd folds - SS consult for discharge planning; patient prefers to stay swingbed for rehab if deemed necessary - PT consult for deconditioning - Up in [place] QI with assistance Chronic, stable conditions: # HTN. LDL 63. Not on a statin. # Mild-moderate mitral regurgitation. # Chronic gout. Continue allopurinol. Uric acid 10.3 (08/2020). # History of anemia. Hgb 13.0. # Chronic knee pain. Continue tylenol CR 650 mg q8h prn & diclofenac top q6h prn. # Chronic LBP. Continue on gabapentin 200 mg TID. # Insomnia. Continue melatonin 3 mg at HS. # T2DM, new. Last A1c 5.9 (08/2020). A1c 6.7. Consideration for starting metformin, however will wait until IV lasix is done so as not to stress his kidneys. Will add ADA diet. Patient was made aware of this diagnosis and dietary measures to change. Hospitalization details: # FEN: Saline lock. Electrolytes wnl. ADA. # PPX: On warfarin. # Code status: DNR/DNI. Reviewed code status with patient on rounds along with the POLST form. Patient updated his previous wishes to reflect DNR/DNI. He is alert and oriented x 3. POLST form completed. Copy faxed to [facility] for that chart. # Emergency contact: Jonathan Greenberg, brother. # Disposition: Patient will benefit from 1 more day of IV diuresis and will have a social service and PT consult performed today to determine if he qualifies for swingbed here.
[2021-03-07] MEDS: Spironolactone 25 MG Tab PO SCH (10:23)
[2021-03-07] MEDS: Nystatin Crm 15 GM Tube TOP SCH ×4 (12:05→20:25)
[2021-03-07] MEDS ORDERED: Warfarin 5 MG Tab PO SCH (18:00)
[2021-03-07] MEDS: Melatonin 3 MG Tab PO SCH (20:25)
[2021-03-07] MEDS: Lisinopril 20 MG Tab PO SCH (20:26)
[2021-03-08 08:31] LABS: ANION GAP 8.4 mmol/L (5-15); CHLORIDE,CL 103 mmol/L (98-107); SODIUM,NA 143 mmol/L (136-145)
[2021-03-08] MEDS: Gabapentin 100 MG Cap PO SCH (08:37)
[2021-03-08] MEDS: Potassium Chloride 20 MEQ Tab.ER PO SCH (08:37)
[2021-03-08] MEDS: Allopurinol 100 MG Tab PO SCH (08:37)
[2021-03-08] MEDS: Spironolactone 25 MG Tab PO SCH (08:37)
[2021-03-08] MEDS: Furosemide 40 MG/4 ML VIAL IVPUSH SCH (08:38)
[2021-03-08] MEDS: Carvedilol 12.5 MG Tab PO SCH (08:41)
[2021-03-08] MEDS: Digoxin 125 MCG Tab PO SCH (08:41)
[2021-03-08 08:42] VITALS: BP 128/85; PULSE 90
[2021-03-08] MEDS: Nystatin Crm 15 GM Tube TOP SCH (08:44)
--- NOTE | 2021-03-08 10:30 | PCM.DCSUM1 ---
Discharge Summary - Hospital Course Diagnosis: Stroke: No - Discharge Data Discharge Date: 03/08/21 Discharge Disposition: Home, W Home Health Agency 06 Condition: Good - Referral to Home Health Date of Face to Face Encounter: 03/08/21 Reason for Homebound Status: Is homebound due to unsteady gait, shortness of breath and decreased endurance Primary Care Physician: Hudson Garcia MD Skilled Need: This is an order and a [id number] encounter for home health services to include nursing, physical therapy occupational therapy to assist in development of in-home therapy program to address the patient's significant decrease in strength and endurance and muscle weakness due to recent acute on chronic congestive heart failure. Patient does have unsteady gait due to lower extremity edema and weakness and heart failure with increased shortness of breath however much improved. Will require intensive medication management and close follow-up as the patient has long history of significant noncompliance with medications, treatments and follow-ups--as a result required hospital admission. Is homebound due to unsteady gait, shortness of breath and decreased endurance - Patient Summary/Data Consults: Consultations 03/06/21 09:39 Consult to Case Management/Health Program Manager [CONS] Routine 03/06/21 09:40 Consult to Physical Therapy [PT Evaluation and Treatment] [CONS] Routine - Patient Instructions Activity: No Strenuous Activities Driving: Do Not Drive Showering/Bathing: May Shower Notify Provider of: Swelling and Redness Other/Special Instructions: Wrapping of lower extremities. Take medications exactly as prescribed. Low-salt diet - Discharge Plan *PRESCRIPTION DRUG MONITORING PROGRAM REVIEWED*: Not Applicable *COPY OF PRESCRIPTION DRUG MONITORING REPORT IN PATIENT ELIJAH: Not Applicable Prescriptions/Med Rec: Spironolactone [Aldactone] 25 mg PO BID #60 tablet Nystatin [Nystatin Crm] 1 applic TOP TID #1 tube Home Medications: Home Meds Acetaminophen [Tylenol] 1,300 mg PO TID PRN #180 tablet 10/01/20 [Rx] Digoxin [Digox] 125 mcg PO DAILY #30 10/01/20 [Rx] Gabapentin [Neurontin] 200 mg PO TID #30 cap 10/01/20 [Rx] Potassium Chloride [Klor-Con M20] 20 meq PO DAILY #30 10/01/20 [Rx] Warfarin [Coumadin] 5 mg PO DAILY@1800 #30 tablet 10/01/20 [Rx] Diclofenac Sodium [Voltaren 1% Gel] 2 gm TOP QID PRN 03/04/21 [History] Melatonin 3 mg PO BEDTIME 03/04/21 [History] allopurinoL [Zyloprim] 100 mg PO DAILY 03/04/21 [History] carvediloL [Coreg] 25 mg PO BIDMEALS 03/04/21 [History] lisinopriL [Lisinopril] 20 mg PO BEDTIME 03/04/21 [History] Furosemide 40 mg PO BID #60 03/08/21 [Rx] Nystatin [Nystatin Crm] 1 applic TOP TID #1 tube 03/08/21 [Rx] Spironolactone [Aldactone] 25 mg PO BID #60 tablet 03/08/21 [Rx] Referrals: Savannah Donovan [employer] [Nurse Practitioner] - 03/16/21 11:00 am Emeterio Castañeda NP [Nurse Practitioner] - (Next week) - Discharge Summary/Plan Comment DC Time >30 min.: Yes Discharge Summary/Plan Comment: Final diagnosis # HFrEF, acute exacerbation, improving. # Nocturnal hypoxia with suspected HAILEY. Did not follow through with previously recommended sleep study. # Nonischemic cardiomyopathy. # Chronic atrial fibrillation with intermittent RVR. # Penile edema, improving. # Dermatitis of abdominal folds, # Noncompliance with medical care. # Deconditioning # T2DM, new. Last A1c 5.9 (08/2020). A1c 6.7. Chronic, stable conditions: # HTN. LDL 63. Not on a statin. # Mild-moderate mitral regurgitation. # Chronic gout. Continue allopurinol. Uric acid 10.3 (08/2020). # History of anemia. Hgb 13.0. # Chronic knee pain. Continue tylenol CR 650 mg q8h prn & diclofenac top q6h prn. # Chronic LBP. Continue on gabapentin 200 mg TID. # Insomnia. Continue melatonin 3 mg at HS. History summary Ladarius is a 71 yo male who presented to this author to an [facility] for increasing shortness of breath and fluid/weight gain. He had been seen the week prior for concerns of penile edema. He was referred to urology and it was felt all the edema was related to fluid overload. He was admitted for IV diuresis and telemetry monitoring. Hospital course: 03/04/21: Admission work-up included labs, EKG, & CXR. WBC 10.8, INR 1.1, K 4.0, Creatinine 1.04, BNP 363, Troponin 0.048, LFTs wnl. COVID19 negative. EKG noted atrial fibrillation with RVR at 114 bpm. CXR notable for cardiomegaly & central vascular congestion; no effusions or other signs of fluid retention. He was given IV lasix 40 mg BID and monitored with accurate I & Os and daily weights. 03/05/21: No calls overnight. Nursing reports that his HR dropped into the 30s while sleeping last night. Patient denies any dizziness, CP, SOB, or palpitations. Has some pain to his lower abdomen, a rash to his abdominal folds, and continued penile/scrotal swelling. Denies any issues urinating. VS: T 96.1F, HR 80, BP 98/58, RR 22, O2 sat 94% on room air. I: 800, O: 2800. Wt down 8.5 lbs. WBC 8.3, Hgb 13.0, INR 1.2, Na 145, K 3.7, BUN 22, Ct 0.97, GFR >60. Noted to be in Vtach occasionally on lacing presser, so repeat EKG was obtained and noted atrial fibrillation at 92 bpm with LAD & RBB. 03/06/21: No calls overnight. Nursing reports that his HR dropped into the 30s twice while he was sleeping. O2 sat while sleeping was 87%, so 2 liters of oxygen was applied with improvement to 93-94%. Patient reports that he had an episode of GI upset yesterday, but that has improved. Denies any other concerns. VS: T 97.1F, HR 82, BP 120/78, RR 24, O2 sat 94% on 2 liters per nasal cannula. I: 1160, O:3100. Wt down a total of 10.5 lbs since admission. Unsure of exact dry weight, but when he was discharged from [place] in 2019 he was 268.8 lbs. He states his dry weight is around 240 lbs. Na 144, K 4.3, BUN 22, Ct 1.03, A1c 6.7, LDL 63, INR 1.1. 03/07/21: No calls overnight. Nursing reports he had an episode of GI upset ye afternoon, which was relieved by simethicone. Denies any symptoms this AM. Notes penile edema is improving. VS: T 97.6F, HR 88, BP 106/77, RR 20, O2 sat 95% on 2 liters NC. Down another 3.6# for a total of 14#. I: 1460, O: 1600. Digoxin level 0.21 (L), Na 143, K 4.4, Ct 1.02, BUN 21, GFR >60, INR 1.3. 03/08/2021; continued to diurese another 6 pound weight loss. He tolerated his newly added spironolactone. He felt much better with no crackles no shortness of breath less edema in his lower extremity. Total Weight loss this admission 20 pounds Social --Code status: DNR/DNI. POLST form completed. Copy faxed to [facility] [place] for that chart. --Emergency contact: Jonathan Ganr, brother. Recommendations at f/u: --Reinforce newly diagnosed diabetes, ADA diet --Enforce long history of noncompliance with medications and treatments and follow-ups --Consideration for starting metformin, held off this admission due to heavy diuresing Medication changes/adjustments upon discharge --Spironolactone 25 mg p.o. daily started this admission, increased to BID upon discharge) --Nystatin cream, 3 times daily intertrigo folds Disposition Patient will be discharged from SNF here at [facility] into home health therapy with close follow-up. Discharge instructions carefully given This is an order and a [id number] encounter for home health services to include nursing, physical therapy occupational therapy to assist in development of in-home therapy program to address the patient's significant decrease in strength and endurance and muscle weakness due to recent acute on chronic congestive heart failure. Patient does have unsteady gait due to lower extremity edema and weakness and heart failure with increased shortness of breath however much improved. Will require intensive medication management and close follow-up as the patient has long history of significant noncompliance with medications, treatments and follow-ups--as a result required hospital admission. Is homebound due to unsteady gait, shortness of breath and decreased endurance - General Info Functional Status: Reports: Pain Controlled - Review of Systems General: Denies: Fever HEENT: Reports: No Symptoms Pulmonary: Denies: Shortness of Breath Cardiovascular: Reports: Dyspnea on Exertion, Edema. Denies: Orthopnea Gastrointestinal: Reports: No Symptoms Genitourinary: Denies: Dysuria, Frequency Musculoskeletal: Reports: No Symptoms Skin: Reports: Rash Neurological: Denies: Confusion, Dizziness, Gait Disturbance Psychiatric: Reports: No Symptoms - Patient Data Vitals - Most Recent: Last Vital Signs Temp 97.1 F 03/08/21 05:50 Pulse 90 03/08/21 08:41 Resp 20 03/08/21 05:50 BP 128/85 03/08/21 08:41 Pulse Ox 93 L 03/08/21 05:50 Weight - Most Recent: 281 lb 8 oz I&O - Last 24 hours: Intake & Output 03/07/21 03/08/21 03/08/21 22:59 06:59 14:59 Intake Total 295 50 Output Total 700 700 Balance -405 -650 Lab Results - Last 24 hrs: Laboratory Results - last 24 hr 03/08/21 03/08/21 Range/Units 07:45 07:45 PT 15.0 H (9.2-11.2) SEC INR 1.5 H (0.9-1.1) Sodium 143 (136-145) mmol/L Potassium 4.4 (3.5-5.1) mmol/L Chloride 103 (98-107) mmol/L Carbon Dioxide 36.0 H (21.0-32.0) mmol/L Anion Gap 8.4 (5-15) mmol/L BUN 23 H (7-18) mg/dL Creatinine 1.07 (0.51-1.17) mg/dL Est Cr Clr Drug Dosing 73.64 mL/min Estimated GFR (MDRD) > 60 mL/min Glucose 118 (70-140) mg/dL Calcium 8.7 (8.7-10.3) mg/dL Med Orders - Current: Current Medications Acetaminophen (Acetaminophen 650 Mg Tab.Er) 1,300 mg PO Q8H PRN PRN Reason: Pain Allopurinol (Allopurinol 100 Mg Tab) 100 mg PO DAILY [facility] Last Admin: 03/08/21 08:37 Dose: 100 mg Documented by: Carvedilol (Carvedilol 12.5 Mg Tab) 25 mg PO BIDMEALS [facility] Last Admin: 03/08/21 08:41 Dose: 25 mg Documented by: Diclofenac Sodium (Diclofenac Sodium 1% Gel 100 Gm Tube) 2 gm TOP Q6H PRN PRN Reason: Pain Digoxin (Digoxin 125 Mcg Tab) 125 mcg PO DAILY [facility] Last Admin: 03/08/21 08:41 Dose: 125 mcg Documented by: Furosemide (Furosemide 40 Mg/4 Ml Vial) 40 mg IVPUSH BID@0900,1600 [facility] Last Admin: 03/08/21 08:38 Dose: 40 mg Documented by: Gabapentin (Gabapentin 100 Mg Cap) 200 mg PO TID [facility] Last Admin: 03/08/21 08:37 Dose: 200 mg Documented by: Lisinopril (Lisinopril 20 Mg Tab) 20 mg PO BEDTIME [facility] Last Admin: 03/07/21 20:26 Dose: Not Given Documented by: Melatonin (Melatonin 3 Mg Tab) 3 mg PO BEDTIME [facility] Last Admin: 03/07/21 20:25 Dose: 3 mg Documented by: Nystatin (Nystatin Crm 15 Gm Tube) 0 gm TOP TID [facility] Last Admin: 03/08/21 08:44 Dose: 1 applic Documented by: Potassium Chloride (Potassium Chloride 20 Meq Tab.Er) 20 meq PO DAILY [facility] Last Admin: 03/08/21 08:37 Dose: 20 meq Documented by: Simethicone (Simethicone 80 Mg Tab.Chew) 80 mg PO Q4H PRN PRN Reason: Heartburn Last Admin: 03/06/21 21:18 Dose: 80 mg Documented by: Sodium Chloride (Sodium Chloride 0.9% 10 Ml Syringe) 10 ml FLUSH Q8HR PRN PRN Reason: keep vein open Last Admin: 03/08/21 08:40 Dose: 10 ml Documented by: Spironolactone (Spironolactone 25 Mg Tab) 25 mg PO DAILY [facility] Last Admin: 03/08/21 08:37 Dose: 25 mg Documented by: Warfarin Sodium (Pharmacy To Dose - Warfarin) 0 dose PO ASDIRECTED [facility] Warfarin Sodium (Warfarin 5 Mg Tab) 5 mg PO DAILY@1800 [facility] Last Admin: 03/07/21 18:28 Dose: 5 mg Documented by: Discontinued Medications Warfarin Sodium (Warfarin 5 Mg Tab) 5 mg PO DAILY@1800 [facility] Last Admin: 03/05/21 18:11 Dose: 5 mg Documented by: Warfarin Sodium (Warfarin 2.5 Mg Tab) 7.5 mg PO ONETIME ONE Stop: 03/06/21 18:01 Last Admin: 03/06/21 18:12 Dose: 7.5 mg Documented by: - Exam General: Reports: Alert, Oriented Neck: Reports: Supple Lungs: Reports: Clear to Auscultation, Normal Respiratory Effort Cardiovascular: Reports: Regular Rate, Regular Rhythm GI/Abdominal Exam: Normal Bowel Sounds, Soft (Male) Exam: Rash, Other (Intertrigo folds) Back Exam: Denies: CVA Tenderness (L), CVA Tenderness (R) Extremities: Pedal Edema (Improved) Skin: Reports: Rash Psy/Mental Status: Reports: Alert, Normal Affect
== END 2021-03-08 13:32 | disposition home health service (06) | DRG 292 ==
LOC: KA.MS 12:36
PROVIDERS: ADMIT Nurse Practitioner Family; ATTEND Nurse Practitioner Family
DX: I11.0 Hypertensive heart disease with heart failure (principal); I48.20 Chronic atrial fibrillation, unspecified; I50.23 Acute on chronic systolic (congestive) heart failure; Z66 Do not resuscitate; G47.33 Obstructive sleep apnea (adult) (pediatric); I42.8 Other cardiomyopathies; N48.89 Other specified disorders of penis; L30.9 Dermatitis, unspecified; E11.9 Type 2 diabetes mellitus without complications; I34.0 Nonrheumatic mitral (valve) insufficiency; M10.9 Gout, unspecified; D64.9 Anemia, unspecified; G89.29 Other chronic pain; M25.569 Pain in unspecified knee; M54.5 Low back pain; G47.00 Insomnia, unspecified; Z91.19 Patient's noncompliance with other medical treatment and regimen; Z79.899 Other long term (current) drug therapy; Z88.0 Allergy status to penicillin; Z90.49 Acquired absence of other specified parts of digestive tract; Z98.890 Other specified postprocedural states; Z87.891 Personal history of nicotine dependence
CPT/HCPCS: 36415; 71046; 80048; 80053; 80061; 80162; 83036; 83735; 83880; 84484; 85025; 85610; 93005; 97161-GP; A9270-GY; J1940

== ENCOUNTER 2021-05-04 15:24 | Emergency (ER) | payer MEDICARE, OTHER ==
--- NOTE | 2021-05-04 16:14 | EDM.PDOC ---
ED HPI GENERAL MEDICAL PROBLEM - General Chief Complaint: General Stated Complaint: LOW BLOOD PRESSURE Time Seen by Provider: 05/04/21 15:59 Source of Information: Reports: Patient, RN (home health) History Limitations: Reports: No Limitations - History of Present Illness INITIAL COMMENTS - FREE TEXT/NARRATIVE: Patient presents with low blood pressure. He is asymptomatic but home health noticed it and told him to come to ER. He denies lightheadedness or fainting feeling when standing up from sitting or lying. He is on lisinopril, carvedilol, furosemide, and spironolactone and takes them as directed. He has had ankle edema quite significantly in the past but not now. He drinks a little water but mostly Mountain Dew. He also recently started Keflex for a abdominal skin infection. - Related Data Allergies Allergy/AdvReac Type Severity Reaction Status Date / Time Penicillins Allergy Anaphylactic Verified 03/07/21 08:32 Shock Home Meds: Home Meds Digoxin [Digox] 125 mcg PO DAILY #30 10/01/20 [Rx] Gabapentin [Neurontin] 200 mg PO TID #30 cap 10/01/20 [Rx] Potassium Chloride [Klor-Con M20] 20 meq PO DAILY #30 10/01/20 [Rx] Diclofenac Sodium [Voltaren 1% Gel] 2 gm TOP Q6H PRN 03/04/21 [History] Melatonin 3 mg PO BEDTIME 03/04/21 [History] allopurinoL [Zyloprim] 100 mg PO DAILY 03/04/21 [History] carvediloL [Coreg] 25 mg PO BIDMEALS 03/04/21 [History] Nystatin [Nystatin Crm] 1 applic TOP TID #1 tube 03/08/21 [Rx] Spironolactone [Aldactone] 25 mg PO BID #60 tablet 03/08/21 [Rx] Acetaminophen [Tylenol] 1,300 mg PO Q8H PRN 05/04/21 [History] Clotrimazole [Clotrimazole 1%] 1 applic TOP BID 05/04/21 [History] Furosemide 20 mg PO BID 05/04/21 [History] Gabapentin [Neurontin] 300 mg PO TID 05/04/21 [History] Rosuvastatin [Crestor] 20 mg PO DAILY 05/04/21 [History] Warfarin [Coumadin] 5 mg PO ASDIRECTED 05/04/21 [History] Warfarin [Coumadin] 7.5 mg PO MO@1800 05/04/21 [History] glipiZIDE [Glucotrol] 10 mg PO WITHBREAKFAST 05/04/21 [History] lisinopriL [Lisinopril] 10 mg PO BEDTIME 05/04/21 [History] metFORMIN [Glucophage] 500 mg PO DAILY 05/04/21 [History] Past Medical History HEENT History: Reports: Impaired Vision Other HEENT History: wears glasses Cardiovascular History: Reports: Afib, Heart Failure, Hypertension, Syncope Respiratory History: Reports: SOB Gastrointestinal History: Reports: None Genitourinary History: Reports: None Musculoskeletal History: Reports: Gout, Osteoarthritis Neurological History: Reports: None Psychiatric History: Reports: None Hematologic History: Reports: Anemia - Infectious Disease History Infectious Disease History: Reports: Chicken Pox, Measles, Mumps - Past Surgical History Head Surgeries/Procedures: Reports: None HEENT Surgical History: Reports: Oral Surgery Cardiovascular Surgical History: Reports: None GI Surgical History: Reports: Appendectomy, Hernia, Inguinal Male Surgical History: Reports: None Musculoskeletal Surgical History: Reports: Other (See Below) Other Musculoskeletal Surgeries/Procedures:: fluid removed from the knee once more than 10 years ago. hammer toe repair Social & Family History - Family History Family Medical History: No Pertinent Family History Cardiac: Reports: Aneurysm Oncologic: Reports: Colon - Tobacco Use Tobacco Use Status *Q: Former Tobacco User Used Tobacco, but Quit: Yes Month/Year Tobacco Last Used: quit years ago - Caffeine Use Caffeine Use: Reports: Coffee, Soda, Tea Caffeine Use Comment: Drinks about three bottles of Mnt dew - Recreational Drug Use Recreational Drug Use: No ED ROS GENERAL - Review of Systems Review Of Systems: See Below Constitutional: Denies: Fever, Chills, Malaise, Weakness HEENT: Reports: No Symptoms Respiratory: Denies: Shortness of Breath, Cough Cardiovascular: Denies: Chest Pain, Lightheadedness, Syncope GI/Abdominal: Denies: Abdominal Pain, Vomiting : Denies: Dysuria, Flank Pain Musculoskeletal: Reports: Arm Pain (arthritis in right arm). Denies: Neck Pain, Shoulder Pain, Back Pain Skin: Denies: Cyanosis, Jaundice, Mottled, Pallor, Diaphoresis Neurological: Denies: Confusion, Dizziness, Headache, Seizure, Syncope, Trouble Speaking, Difficulty Walking (uses walker) Psychiatric: Denies: Agitation, Anxiety, Confusion Hematologic/Lymphatic: Reports: Easy Bleeding (on warfarin) ED EXAM, GENERAL - Physical Exam Exam: See Below Exam Limited By: No Limitations General Appearance: Alert, WD/WN, No Apparent Distress Eye Exam: Bilateral Eye: EOMI, Normal Inspection, PERRL Ears: Normal External Exam, Hearing Grossly Normal Nose: Normal Inspection, No Blood Throat/Mouth: Normal Inspection, Normal Lips, Normal Voice, No Airway Compromise Head: Atraumatic, Normocephalic Neck: Normal Inspection, Full Range of Motion Respiratory/Chest: No Respiratory Distress, Lungs Clear, Normal Breath Sounds Cardiovascular: Regular Rate, Rhythm, No Murmur GI/Abdominal: Normal Bowel Sounds, Soft, Non-Tender, No Organomegaly Back Exam: Normal Inspection, Full Range of Motion. No: CVA Tenderness (L), CVA Tenderness (R) Extremities: Normal Inspection, Normal Range of Motion, No Pedal Edema Neurological: Alert, Oriented, Normal Cognition, No Motor/Sensory Deficits Psychiatric: Normal Affect, Normal Mood Skin Exam: Warm, Dry, Intact, Normal Color, No Rash Course - Vital Signs Last Recorded V/S: Last Vital Signs Temp 96.9 F 05/04/21 15:32 Pulse 79 05/04/21 15:32 Resp 16 05/04/21 15:32 BP 110/65 05/04/21 15:32 Pulse Ox 97 05/04/21 15:32 Orthostatic Blood Pressure [ 76/48 Standing] Orthostatic Blood Pressure [ 82/57 Sitting] Orthostatic Blood Pressure [ 87/59 Supine] - Re-Assessments/Exams Free Text/Narrative Re-Assessment/Exam: 05/04/21 17:10 Recent labs from clinic are reviewed and okay. Orthostatics are low but consistent. Patient has drank 16 oz of water and blood pressure is now 91/68. He has been asymptomatic during ER visit including getting up a couple times for bathroom, etc. We discussed that his fluid control is evidently a little difficult to maintain without getting overloaded or too dry. I called Dr. Mcclellan to see if she would like me to hold or change any of the diuretic doses but she is in a procedure and will call back when available. Patient's ride is here and he would like to go home and just have his PCP call him directly if changes are needed. Patient is discharged to home in stable condition. Departure - Departure Time of Disposition: 17:07 Disposition: Home, Self-Care 01 Condition: Good Clinical Impression: Hypotension Qualifiers: Hypotension type: hypotension due to drug Qualified Code(s): I95.2 - Hypotension due to drugs - Discharge Information Referrals: Hudson Garcia MD [Primary Care Provider] - Additional Instructions: Try to drink 6-8 cups of water daily and limit soda to one a day. Take your medications as directed. A [place] provider should call you with any desired changes in your blood pressure or diuretic medications. Follow up with your PCP to recheck blood pressure, or if any problems or worsening. Return to ER if needed. Sepsis Event Note (ED) - Evaluation Sepsis Screening Result: No Definite Risk - Focused Exam Vital Signs: Vital Signs Temp Pulse Resp BP Pulse Ox 05/04/21 15:32 96.9 F 79 16 110/65 97 05/04/21 15:30 80 21 H 86/60 L 93 L
[2021-05-04 17:09] VITALS: BP 91/68; PULSE 70
== END 2021-05-04 17:15 | disposition home or self-care (01) ==
LOC: KA.ED 15:24
DX: I95.2 Hypotension due to drugs (principal); T46.5X5A Adverse effect of other antihypertensive drugs, initial encounter; I11.0 Hypertensive heart disease with heart failure; I50.9 Heart failure, unspecified; Z79.899 Other long term (current) drug therapy; Z88.0 Allergy status to penicillin; Z87.891 Personal history of nicotine dependence
CPT/HCPCS: 82947; 99284

== ENCOUNTER 2021-05-06 10:12 | Inpatient (IN) | payer MEDICARE, OTHER ==
[2021-05-06] MEDS ORDERED: Sodium Chloride 0.9% 1,000 ML IV ONE ×2 (10:26→11:06)
[2021-05-06 10:58] LABS: ANION GAP 12.3 mmol/L (5-15)
--- NOTE | 2021-05-06 12:00 | EDM.PDOC ---
ED HPI GENERAL MEDICAL PROBLEM - General Chief Complaint: Cardiovascular Problem Stated Complaint: PASSED OUT - LOW BLOOD PRESSURE Time Seen by Provider: 05/06/21 10:15 Source of Information: Reports: Patient History Limitations: Reports: No Limitations - History of Present Illness INITIAL COMMENTS - FREE TEXT/NARRATIVE: 71 presents to the emergency room brought in by EMS today when he was had a near syncopal episode in form and clinic today. Patient states that he is recently discharged from [address] in [place] the first part of April for fluid overload and weight gain. He had a scheduled follow-up appointment with his primary care in his hometown that today when he had a near syncopal episode upon arising from a standing position to go into the room. EMS evaluated and brought him in for further evaluation of. He has a history of chronic systolic heart failure and atrial fibrillation. He has had repeat echocardiogram which show most recently on 1020 ejection fraction of 20%. He had approximately a 30% a weight gain back in August 2020 and was diuresed for this. He had his medications including Durick and digoxin changed and also was started on li sinopril. Once again had experienced increasing weight gain of 281 weighing 281 pounds this is about a 30 pound weight gain. He was taking Lasix milligrams 3 times daily and was taken off his potassium chloride. Currently is denying any increased shortness of breath or chest pain. His lower extremities have very minimal pedal edema today. His abdomen is soft and nontender. He is not complaining of dyspnea or dyspnea on exertion. His Coreg was creased to 37.5 mg twice a day. He was instructed to perform daily logs of weight and call if he is having any increase of weight gain more than 2 or 3 pounds in a day or 5 pounds in a week. Onset: Gradual Onset Date: 05/04/21 Duration: Day(s):, Recurring Location: Reports: Generalized Severity: Moderate Improves with: Reports: Rest Worsens with: Reports: None Associated Symptoms: Reports: Syncope. Denies: Confusion, Chest Pain, Cough, Diaphoresis, Fever/Chills, Headaches, Nausea/Vomiting, Seizure, Shortness of Breath, Weakness Treatments [employer]: Reports: EKG, IV/IO - Related Data Allergies Allergy/AdvReac Type Severity Reaction Status Date / Time Penicillins Allergy Severe Anaphylactic Verified 05/06/21 14:13 Shock Home Meds: Home Meds Digoxin [Digox] 125 mcg PO DAILY #30 10/01/20 [Rx] Potassium Chloride [Klor-Con M20] 20 meq PO DAILY #30 10/01/20 [Rx] Diclofenac Sodium [Voltaren 1% Gel] 2 gm TOP Q6H PRN 03/04/21 [History] Melatonin 3 mg PO BEDTIME 03/04/21 [History] allopurinoL [Zyloprim] 100 mg PO DAILY 03/04/21 [History] Nystatin [Nystatin Crm] 1 applic TOP TID #1 tube 03/08/21 [Rx] Spironolactone [Aldactone] 25 mg PO BID #60 tablet 03/08/21 [Rx] Acetaminophen [Tylenol] 1,300 mg PO Q8H PRN 05/04/21 [History] Gabapentin [Neurontin] 200 mg PO TID 05/04/21 [History] Rosuvastatin [Crestor] 20 mg PO BEDTIME 05/04/21 [History] Warfarin [Coumadin] 5 mg PO ASDIRECTED 05/04/21 [History] Warfarin [Coumadin] 7.5 mg PO ASDIRECTED 05/04/21 [History] glipiZIDE [Glucotrol] 10 mg PO WITHBREAKFAST 05/04/21 [History] lisinopriL [Lisinopril] 10 mg PO BEDTIME 05/04/21 [History] metFORMIN [Glucophage] 500 mg PO BID 05/04/21 [History] carvediloL [Coreg] 37.5 mg PO BIDMEALS 05/05/21 [History] cephALEXin [Keflex] 500 mg PO TID 05/05/21 [History] Clotrimazole [Lotrimin AF 1% Crm] 1 applic TOP BID 05/06/21 [History] Furosemide 20 mg PO TID 05/06/21 [History] Past Medical History HEENT History: Reports: Impaired Vision Other HEENT History: wears glasses Cardiovascular History: Reports: Afib, Heart Failure, Hypertension, Syncope Respiratory History: Reports: SOB Gastrointestinal History: Reports: None Genitourinary History: Reports: None Musculoskeletal History: Reports: Gout, Osteoarthritis Neurological History: Reports: None Psychiatric History: Reports: None Hematologic History: Reports: Anemia - Infectious Disease History Infectious Disease History: Reports: Chicken Pox, Measles, Mumps - Past Surgical History Head Surgeries/Procedures: Reports: None HEENT Surgical History: Reports: Oral Surgery Cardiovascular Surgical History: Reports: None GI Surgical History: Reports: Appendectomy, Hernia, Inguinal Male Surgical History: Reports: None Musculoskeletal Surgical History: Reports: Other (See Below) Other Musculoskeletal Surgeries/Procedures:: fluid removed from the knee once more than 10 years ago. hammer toe repair Social & Family History - Family History Family Medical History: No Pertinent Family History Cardiac: Reports: Aneurysm Oncologic: Reports: Colon - Tobacco Use Tobacco Use Status *Q: Former Tobacco User Used Tobacco, but Quit: Yes Month/Year Tobacco Last Used: 10 years ago - Caffeine Use Caffeine Use: Reports: None Caffeine Use Comment: Drinks about three bottles of Mnt dew - Recreational Drug Use Recreational Drug Use: No ED ROS GENERAL - Review of Systems Review Of Systems: See Below Constitutional: Reports: Weight Gain. Denies: Diaphoresis HEENT: Reports: No Symptoms Respiratory: Denies: Shortness of Breath, Wheezing, Cough Cardiovascular: Reports: Blood Pressure Problem, Edema, Lightheadedness. Denies: Chest Pain, Dyspnea on Exertion, Orthopnea, Palpitations Endocrine: Reports: High Glucose GI/Abdominal: Reports: Other (keflex and nystastin for belly fold). Denies: Abdominal Pain, Diarrhea, Distension, Hematemesis, Nausea, Vomiting : Reports: Frequency. Denies: Hematuria Musculoskeletal: Reports: Joint Pain (bilateral knees, arthritic) Skin: Reports: Wound (abrasions lower legs from scratching). Denies: Cyanosis, Diaphoresis, Erythema Neurological: Reports: Syncope. Denies: Confusion, Dizziness, Headache, Numbness, Paresthesia, Pre-Existing Deficit, Seizure, Trouble Speaking, Difficulty Walking, Change in Speech Psychiatric: Reports: No Symptoms Hematologic/Lymphatic: Reports: No Symptoms Immunologic: Reports: No Symptoms ED EXAM, GENERAL - Physical Exam Exam: See Below Exam Limited By: No Limitations General Appearance: Alert, No Apparent Distress, Obese Eye Exam: Bilateral Eye: PERRL Ears: Hearing Grossly Normal Nose: Normal Inspection Throat/Mouth: Normal Inspection, Normal Lips, Normal Voice, No Airway Compromise Head: Atraumatic, Normocephalic Neck: Normal Inspection, Other (No JVD) Respiratory/Chest: No Respiratory Distress, Lungs Clear, Normal Breath Sounds, No Accessory Muscle Use, Chest Non-Tender. No: Crackles, Wheezing Cardiovascular: Regular Rate, Rhythm, No Edema (lower legs mild edema 1/4), No JVD GI/Abdominal: Normal Bowel Sounds, Soft, Non-Tender, Other (fwet abdominal ) (Male) Exam: No: Scrotal Swelling Back Exam: Normal Inspection Extremities: Pedal Edema (mild 1/4). No: Increased Warmth, Redness Neurological: Alert, Oriented, Normal Cognition, No Motor/Sensory Deficits Psychiatric: Normal Affect, Normal Mood Skin Exam: Warm, Dry, Intact, Normal Color, No Rash, Other (scratches lower legs.). No: Erythema #1 Interpretation EKG Date: 05/06/21 Time: 12:21 Rhythm: A-Fib Rate (Beats/Min): 61 [place]: LAD-Left [place] Deviation P-Wave: Present QRS: RBBB ST-T: Normal QT: Normal Comparison: No Change EKG Interpretation Comments: 1. Atrial fibrillation 2. Left axis deviation 3. Right bundle branch block 4. Abnormal ECG Course - Vital Signs Last Recorded V/S: Last Vital Signs Temp 97.3 F 05/06/21 11:49 Pulse 65 05/06/21 11:49 Resp 16 05/06/21 11:49 BP 90/62 05/06/21 11:49 Pulse Ox 93 L 05/06/21 12:30 - Orders/Labs/Meds Orders: Active Orders 24 hr Category Date Time Status EKG Documentation Completion [RC] ASDIRECTED Care 05/06/21 10:23 Active EKG 12 Lead [EK] Stat Ther 05/06/21 10:22 Ordered Medication Orders Acetaminophen (Acetaminophen 650 Mg Tab.Er) 1,300 mg PO Q8H PRN PRN Reason: Pain Allopurinol (Allopurinol 100 Mg Tab) 100 mg PO DAILY [facility] Cephalexin (Cephalexin 250 Mg Cap) 500 mg PO TID [facility] Last Admin: 05/06/21 14:58 Dose: 500 mg Documented by: SAVANNAH Diclofenac Sodium (Diclofenac Sodium 1% Gel 100 Gm Tube) 2 gm TOP Q6H PRN PRN Reason: Pain Digoxin (Digoxin 125 Mcg Tab) 125 mcg PO DAILY [facility] Melatonin (Melatonin 3 Mg Tab) 3 mg PO BEDTIME [facility] Nystatin (Nystatin Crm 15 Gm Tube) 0 gm TOP TID [facility] Last Admin: 05/06/21 14:58 Dose: 1 applic Documented by: SAVANNAH Rosuvastatin Calcium (Rosuvastatin 10 Mg Tab) 20 mg PO BEDTIME [facility] Warfarin Sodium (Warfarin 5 Mg Tab) 5 mg PO SuTuWeThFrSa@1800 [facility] Warfarin Sodium (Warfarin 2.5 Mg Tab) 7.5 mg PO Mo@1800 [facility] Warfarin Sodium (Pharmacy To Dose - Warfarin) 0 dose PO ASDIRECTED [facility] Labs: Laboratory Tests 05/06/21 05/06/21 05/06/21 Range/Units 10:30 10:30 10:30 WBC 9.79 (5.00-10.00) 10^3/uL RBC 4.55 (4.50-6.00) 10^6/uL Hgb 12.9 L (13.0-17.0) g/dL Hct 40.2 (40.0-52.0) % MCV 88.4 D (82.0-92.0) fL MCH 28.4 (27.0-31.0) pg MCHC 32.1 (32.0-36.0) g/dL RDW 15.7 H (11.5-14.5) % Plt Count 184 D (150-400) 10^3/uL MPV 10.3 (7.4-10.4) fL Immature Gran % (Auto) 0.5 (0.0-5.0) % Neut % (Auto) 71.2 H (50.0-70.0) % Lymph % (Auto) 17.7 L (20.0-40.0) % [place] % (Auto) 8.4 H (2.0-8.0) % Eos % (Auto) 2.0 (1.0-3.0) % Baso % (Auto) 0.2 (0.0-1.0) % Neut # (Auto) 6.97 (2.50-7.00) 10^3/uL Lymph # (Auto) 1.73 (1.00-4.00) 10^3/uL [place] # (Auto) 0.82 H (0.10-0.80) 10^3/uL Eos # (Auto) 0.20 (0.10-0.30) 10^3/uL Baso # (Auto) 0.02 (0.00-0.10) 10^3/uL Immature Gran # (Auto) 0.05 (0.00-0.50) 10^3/uL INR (0.9-1.1) Sodium 137 (136-145) mmol/L Potassium 5.8 H (3.5-5.1) mmol/L Chloride 103 (98-107) mmol/L Carbon Dioxide 27.5 (21.0-32.0) mmol/L Anion Gap 12.3 (5-15) mmol/L BUN 50 H D (7-18) mg/dL Creatinine 1.47 H (0.51-1.17) mg/dL Est Cr Clr Drug Dosing 52.06 mL/min Estimated GFR (MDRD) 47 mL/min Glucose 127 (70-140) mg/dL Calcium 8.0 L (8.7-10.3) mg/dL Total Bilirubin 0.2 (0.2-1.0) mg/dL AST 23 (15-37) U/L ALT 29 (14-63) U/L Alkaline Phosphatase 66 (46-116) U/L Troponin I High Sens 13.200 (0-76.000) pg/mL B-Natriuretic Peptide 43 (0-100) pg/mL Total Protein 7.1 (6.4-8.2) g/dL Albumin 3.56 (3.40-5.00) g/dL Digoxin (0.90-2.00) ng/mL 05/06/21 05/06/21 Range/Units 10:30 11:31 WBC (5.00-10.00) 10^3/uL RBC (4.50-6.00) 10^6/uL Hgb (13.0-17.0) g/dL Hct (40.0-52.0) % MCV (82.0-92.0) fL MCH (27.0-31.0) pg MCHC (32.0-36.0) g/dL RDW (11.5-14.5) % Plt Count (150-400) 10^3/uL MPV (7.4-10.4) fL Immature Gran % (Auto) (0.0-5.0) % Neut % (Auto) (50.0-70.0) % Lymph % (Auto) (20.0-40.0) % [place] % (Auto) (2.0-8.0) % Eos % (Auto) (1.0-3.0) % Baso % (Auto) (0.0-1.0) % Neut # (Auto) (2.50-7.00) 10^3/uL Lymph # (Auto) (1.00-4.00) 10^3/uL [place] # (Auto) (0.10-0.80) 10^3/uL Eos # (Auto) (0.10-0.30) 10^3/uL Baso # (Auto) (0.00-0.10) 10^3/uL Immature Gran # (Auto) (0.00-0.50) 10^3/uL INR 1.8 H (0.9-1.1) Sodium (136-145) mmol/L Potassium (3.5-5.1) mmol/L Chloride (98-107) mmol/L Carbon Dioxide (21.0-32.0) mmol/L Anion Gap (5-15) mmol/L BUN (7-18) mg/dL Creatinine (0.51-1.17) mg/dL Est Cr Clr Drug Dosing mL/min Estimated GFR (MDRD) mL/min Glucose (70-140) mg/dL Calcium (8.7-10.3) mg/dL Total Bilirubin (0.2-1.0) mg/dL AST (15-37) U/L ALT (14-63) U/L Alkaline Phosphatase (46-116) U/L Troponin I High Sens (0-76.000) pg/mL B-Natriuretic Peptide (0-100) pg/mL Total Protein (6.4-8.2) g/dL Albumin (3.40-5.00) g/dL Digoxin 1.01 (0.90-2.00) ng/mL Meds: Medications Generic Name Dose Route Start Last Admin Trade Name Freq PRN Reason Stop Dose Admin Acetaminophen 1,300 mg 05/06/21 13:40 Acetaminophen 650 Mg Tab.Er PO Q8H PRN Pain Allopurinol 100 mg 05/07/21 09:00 Allopurinol 100 Mg Tab PO DAILY [facility] Cephalexin 500 mg 05/06/21 14:00 05/06/21 14:58 Cephalexin 250 Mg Cap PO 500 mg TID [facility]AN[facility] Administration Diclofenac Sodium 2 gm 05/06/21 12:59 Diclofenac Sodium 1% Gel 100 Gm Tube TOP Q6H PRN Pain Digoxin 125 mcg 05/07/21 09:00 Digoxin 125 Mcg Tab PO DAILY [facility] Melatonin 3 mg 05/06/21 21:00 Melatonin 3 Mg Tab PO BEDTIME [facility] Nystatin 0 gm 05/06/21 14:00 05/06/21 14:58 Nystatin Crm 15 Gm Tube TOP 1 applic TID [facility] Administration Rosuvastatin Calcium 20 mg 05/06/21 21:00 Rosuvastatin 10 Mg Tab PO BEDTIME [facility] Warfarin Sodium 5 mg 05/06/21 18:00 Warfarin 5 Mg Tab PO SuTuWeThFrSa@1800 [facility] Warfarin Sodium 7.5 mg 05/09/21 18:00 Warfarin 2.5 Mg Tab PO Mo@1800 [facility] Warfarin Sodium 0 dose 05/06/21 15:00 Pharmacy To Dose - Warfarin PO ASDIRECTED [facility] Discontinued Medications Generic Name Dose Route Start Last Admin Trade Name Freq PRN Reason Stop Dose Admin Sodium Chloride 1,000 mls @ 999 mls/hr 05/06/21 10:26 05/06/21 10:26 Normal Saline IV 05/06/21 11:26 999 mls/hr .BOLUS ONE Administration Sodium Chloride 1,000 mls @ 150 mls/hr 05/06/21 11:06 05/06/21 11:08 Normal Saline IV 05/06/21 17:45 150 mls/hr ASDIRECTED ONE Administration - Re-Assessments/Exams Free Text/Narrative Re-Assessment/Exam: 05/06/21 12:18 Patient finished 1 L of fluids. He denied any shortness of breath. He denied lightheadedness with standing. His blood pressures remained low 91/68. His weight today is 298 pounds. He has put on 17 pounds since discharge from [facility] 2 weeks ago Departure - Departure Time of Disposition: 11:50 Disposition: Admitted As Inpatient 68 Condition: Fair Clinical Impression: Syncope due to orthostatic hypotension, Acute hyperkalemia, Acute renal insufficiency, Nonischemic cardiomyopathy, Atrial fibrillation with controlled ventricular rate Fluid overload Qualifiers: Hypervolemia type: unspecified Qualified Code(s): E87.70 - Fluid overload, unspecified Systolic congestive heart failure, NYHA class 2 Qualifiers: Congestive heart failure chronicity: chronic Qualified Code(s): I50.22 - Chronic systolic (congestive) heart failure Sepsis Event Note (ED) - Evaluation Sepsis Screening Result: No Definite Risk - Focused Exam Vital Signs: Vital Signs Temp Pulse Resp BP Pulse Ox 05/06/21 11:31 59 L 18 85/62 L 94 L 05/06/21 10:48 97 18 87/61 L 94 L 05/06/21 10:35 65 20 94 L 05/06/21 10:15 96.2 F L 69 20 97/62 95 - My Orders Last 24 Hours: My Active Orders 05/06/21 10:22 EKG 12 Lead [EK] Stat 05/06/21 10:23 EKG Documentation Completion [RC] ASDIRECTED - Assessment/Plan Last 24 Hours: My Active Orders 05/06/21 10:22 EKG 12 Lead [EK] Stat 05/06/21 10:23 EKG Documentation Completion [RC] ASDIRECTED Plan: Patient's BMP is normal. He has had double his BUN from his last lab draw earlier in April. He has fluid overload weighing 298pounds today. We will plan on admission patient. [place] [facility] provider is excepting for patient's inpatient care. Patient is a DNR.
[2021-05-06] MEDS: Nystatin Crm 15 GM Tube TOP SCH ×2 (14:58→21:11)
[2021-05-06] MEDS: Cephalexin 250 MG Cap PO SCH ×2 (14:58→21:10)
--- NOTE | 2021-05-06 17:57 | PCM.HP.2 ---
H&P History of Present Illness - General Date of Service: 05/06/21 Admit Problem/Dx: Admission Diagnosis/Problem Admission Diagnosis/Problem Syncope due to orthostatic hypotension Source of Information: Patient History Limitations: Reports: No Limitations - History of Present Illness Initial Comments - Free Text/Narative: 71-year-old male admitted inpatient due to hypotension and syncopal episodes from the emergency department. History significant for heart failure with an ejection fraction last checked at 20%. He had been in the clinic and stood up and fell. Blood pressure was 70 systolic when he was sat back up and ambulance was called and patient was transferred to the emergency department. Patient had been seen for similar episode 2 days prior, but was sent home as he improved during ED visit. Heart failure medications were held and patient was admitted inpatient. - Related Data Allergies/Adverse Reactions: Allergies Allergy/AdvReac Type Severity Reaction Status Date / Time Penicillins Allergy Severe Anaphylactic Verified 05/06/21 14:13 Shock Home Medications: Home Meds Digoxin [Digox] 125 mcg PO DAILY #30 10/01/20 [Rx] Potassium Chloride [Klor-Con M20] 20 meq PO DAILY #30 10/01/20 [Rx] Diclofenac Sodium [Voltaren 1% Gel] 2 gm TOP Q6H PRN 03/04/21 [History] Melatonin 3 mg PO BEDTIME 03/04/21 [History] allopurinoL [Zyloprim] 100 mg PO DAILY 03/04/21 [History] Nystatin [Nystatin Crm] 1 applic TOP TID #1 tube 03/08/21 [Rx] Spironolactone [Aldactone] 25 mg PO BID #60 tablet 03/08/21 [Rx] Acetaminophen [Tylenol] 1,300 mg PO Q8H PRN 05/04/21 [History] Gabapentin [Neurontin] 200 mg PO TID 05/04/21 [History] Rosuvastatin [Crestor] 20 mg PO BEDTIME 05/04/21 [History] Warfarin [Coumadin] 5 mg PO ASDIRECTED 05/04/21 [History] Warfarin [Coumadin] 7.5 mg PO ASDIRECTED 05/04/21 [History] glipiZIDE [Glucotrol] 10 mg PO WITHBREAKFAST 05/04/21 [History] lisinopriL [Lisinopril] 10 mg PO BEDTIME 05/04/21 [History] metFORMIN [Glucophage] 500 mg PO BID 05/04/21 [History] carvediloL [Coreg] 37.5 mg PO BIDMEALS 05/05/21 [History] cephALEXin [Keflex] 500 mg PO TID 05/05/21 [History] Clotrimazole [Lotrimin AF 1% Crm] 1 applic TOP BID 05/06/21 [History] Furosemide 20 mg PO TID 05/06/21 [History] Past Medical History HEENT History: Reports: Impaired Vision Other HEENT History: wears glasses Cardiovascular History: Reports: Afib, Heart Failure, Hypertension, Syncope Respiratory History: Reports: SOB Gastrointestinal History: Reports: None Genitourinary History: Reports: None Musculoskeletal History: Reports: Gout, Osteoarthritis Neurological History: Reports: None Psychiatric History: Reports: None Hematologic History: Reports: Anemia - Infectious Disease History Infectious Disease History: Reports: Chicken Pox, Measles, Mumps - Past Surgical History Head Surgeries/Procedures: Reports: None HEENT Surgical History: Reports: Oral Surgery Cardiovascular Surgical History: Reports: None GI Surgical History: Reports: Appendectomy, Hernia, Inguinal Male Surgical History: Reports: None Musculoskeletal Surgical History: Reports: Other (See Below) Other Musculoskeletal Surgeries/Procedures:: fluid removed from the knee once more than 10 years ago. hammer toe repair Social & Family History - Family History Family Medical History: No Pertinent Family History Cardiac: Reports: Aneurysm Oncologic: Reports: Colon - Tobacco Use Tobacco Use Status *Q: Former Tobacco User Used Tobacco, but Quit: Yes Month/Year Tobacco Last Used: 10 years ago - Caffeine Use Caffeine Use: Reports: Soda Caffeine Use Comment: [place] - Recreational Drug Use Recreational Drug Use: No H&P Review of Systems - Review of Systems: Review Of Systems: See Below General: Denies: Fever, Chills, Weakness, Fatigue HEENT: Reports: Glasses. Denies: Headaches, Sinus Congestion, Sore Throat Pulmonary: Denies: Shortness of Breath, Wheezing, Cough Cardiovascular: Denies: Chest Pain, Palpitations, Edema Gastrointestinal: Denies: Abdominal Pain, Bloody Stool, Constipation, Diarrhea Genitourinary: Denies: Dysuria, Urgency, Hematuria Musculoskeletal: Denies: Neck Pain, Back Pain, Leg Pain Skin: Reports: Rash (abd fold). Denies: Dryness, Bruising Psychiatric: Denies: Confusion, Depression, Anxiety Neurological: Denies: Numbness, Paresthesia, Syncope, Trouble Speaking, Difficulty Walking Exam - Exam Exam: See Below - Vital Signs Vital Signs: Last Vital Signs Temp 36.4 C 05/06/21 15:00 Pulse 67 05/06/21 15:00 Resp 16 05/06/21 15:00 BP 94/72 05/06/21 15:00 Pulse Ox 97 05/06/21 15:00 Weight: 132.494 kg - Exam Physical Exam Comments:: GENERAL: Well-appearing adult in no acute distress. HEENT: Normocephalic, atraumatic. Conjunctiva clear. Nares patent without disc harge. Mucous membranes moist, posterior pharynx unremarkable. NECK: Supple, no masses. CV: Regular rate and rhythm, no murmurs, rubs, or gallops. 2+ radial pulses. PULMONARY: Normal effort, clear to auscultation bilaterally, no wheezes, rales, or rhonchi. ABDOMEN: Positive bowel sounds, soft, nontender, nondistended. EXTREMITIES: Trace LLE edema, no edema RLE, no cyanosis or clubbing. MUSCULOSKELETAL: Moves all extremities well. NEUROLOGICAL: No obvious deficits. DERMATOLOGIC: Erythematous rash noted to abdominal fold. No drainage. PSYCHIATRIC: Alert, interactive, appropriate affect. - Patient Data Lab Results Last 24 hrs: Laboratory Results - last 24 hr 05/06/21 05/06/21 05/06/21 Range/Units 10:30 10:30 10:30 WBC 9.79 (5.00-10.00) 10^3/uL RBC 4.55 (4.50-6.00) 10^6/uL Hgb 12.9 L (13.0-17.0) g/dL Hct 40.2 (40.0-52.0) % MCV 88.4 D (82.0-92.0) fL MCH 28.4 (27.0-31.0) pg MCHC 32.1 (32.0-36.0) g/dL RDW 15.7 H (11.5-14.5) % Plt Count 184 D (150-400) 10^3/uL MPV 10.3 (7.4-10.4) fL Immature Gran % (Auto) 0.5 (0.0-5.0) % Neut % (Auto) 71.2 H (50.0-70.0) % Lymph % (Auto) 17.7 L (20.0-40.0) % [place] % (Auto) 8.4 H (2.0-8.0) % Eos % (Auto) 2.0 (1.0-3.0) % Baso % (Auto) 0.2 (0.0-1.0) % Neut # (Auto) 6.97 (2.50-7.00) 10^3/uL Lymph # (Auto) 1.73 (1.00-4.00) 10^3/uL [place] # (Auto) 0.82 H (0.10-0.80) 10^3/uL Eos # (Auto) 0.20 (0.10-0.30) 10^3/uL Baso # (Auto) 0.02 (0.00-0.10) 10^3/uL Immature Gran # (Auto) 0.05 (0.00-0.50) 10^3/uL INR (0.9-1.1) Sodium 137 (136-145) mmol/L Potassium 5.8 H (3.5-5.1) mmol/L Chloride 103 (98-107) mmol/L Carbon Dioxide 27.5 (21.0-32.0) mmol/L Anion Gap 12.3 (5-15) mmol/L BUN 50 H D (7-18) mg/dL Creatinine 1.47 H (0.51-1.17) mg/dL Est Cr Clr Drug Dosing 52.06 mL/min Estimated GFR (MDRD) 47 mL/min Glucose 127 (70-140) mg/dL Calcium 8.0 L (8.7-10.3) mg/dL Total Bilirubin 0.2 (0.2-1.0) mg/dL AST 23 (15-37) U/L ALT 29 (14-63) U/L Alkaline Phosphatase 66 (46-116) U/L Troponin I High Sens 13.200 (0-76.000) pg/mL B-Natriuretic Peptide 43 (0-100) pg/mL Total Protein 7.1 (6.4-8.2) g/dL Albumin 3.56 (3.40-5.00) g/dL Digoxin (0.90-2.00) ng/mL 05/06/21 05/06/21 Range/Units 10:30 11:31 WBC (5.00-10.00) 10^3/uL RBC (4.50-6.00) 10^6/uL Hgb (13.0-17.0) g/dL Hct (40.0-52.0) % MCV (82.0-92.0) fL MCH (27.0-31.0) pg MCHC (32.0-36.0) g/dL RDW (11.5-14.5) % Plt Count (150-400) 10^3/uL MPV (7.4-10.4) fL Immature Gran % (Auto) (0.0-5.0) % Neut % (Auto) (50.0-70.0) % Lymph % (Auto) (20.0-40.0) % [place] % (Auto) (2.0-8.0) % Eos % (Auto) (1.0-3.0) % Baso % (Auto) (0.0-1.0) % Neut # (Auto) (2.50-7.00) 10^3/uL Lymph # (Auto) (1.00-4.00) 10^3/uL [place] # (Auto) (0.10-0.80) 10^3/uL Eos # (Auto) (0.10-0.30) 10^3/uL Baso # (Auto) (0.00-0.10) 10^3/uL Immature Gran # (Auto) (0.00-0.50) 10^3/uL INR 1.8 H (0.9-1.1) Sodium (136-145) mmol/L Potassium (3.5-5.1) mmol/L Chloride (98-107) mmol/L Carbon Dioxide (21.0-32.0) mmol/L Anion Gap (5-15) mmol/L BUN (7-18) mg/dL Creatinine (0.51-1.17) mg/dL Est Cr Clr Drug Dosing mL/min Estimated GFR (MDRD) mL/min Glucose (70-140) mg/dL Calcium (8.7-10.3) mg/dL Total Bilirubin (0.2-1.0) mg/dL AST (15-37) U/L ALT (14-63) U/L Alkaline Phosphatase (46-116) U/L Troponin I High Sens (0-76.000) pg/mL B-Natriuretic Peptide (0-100) pg/mL Total Protein (6.4-8.2) g/dL Albumin (3.40-5.00) g/dL Digoxin 1.01 (0.90-2.00) ng/mL Result Diagrams: 05/07/21 07:11 05/07/21 07:11 Sepsis Event Note - Evaluation Sepsis Screening Result: No Definite Risk - Focused Exam Vital Signs: Vital Signs Temp Pulse Resp BP BP Pulse Ox Pulse Ox 05/06/21 15:00 36.4 C 67 16 94/72 97 05/06/21 12:30 93 L 05/06/21 11:49 36.3 C 65 16 90/62 96 05/06/21 11:31 59 L 18 85/62 L 94 L 05/06/21 10:48 97 18 87/61 L 94 L 05/06/21 10:35 65 20 94 L 05/06/21 10:15 35.7 C L 69 20 97/62 95 Problem List Initiated/Reviewed/Updated: Yes Orders Last 24hrs: Active Orders 24 hr Category Date Time Status Patient Status [ADT] Routine ADT 05/06/21 11:49 Active EKG Documentation Completion [RC] ASDIRECTED Care 05/06/21 10:23 Active Height and Weight [RC] DAILY Care 05/06/21 11:49 Active Intake and Output [RC] 0600,1400,2200 Care 05/06/21 11:53 Active Oxygen Therapy [RC] PRN Care 05/06/21 11:49 Active Up With Assistance [RC] ASDIRECTED Care 05/06/21 11:49 Active VTE/DVT Education [RC] PER UNIT ROUTINE Care 05/06/21 11:49 Active Vital Signs [RC] 0300,0700,1100,1500,1900,2300 Care 05/06/21 11:49 Active ADA Diabetic [[place] [employer] Diet] [DIET Diet 05/06/21 Dinner Active ] Heart Healthy Diet [DIET] Diet 05/06/21 Dinner Active INR,PT,PROTHROMBIN TIME [COAG] DAILY Lab 05/07/21 05:11 Ordered INR,PT,PROTHROMBIN TIME [COAG] DAILY Lab 05/08/21 05:11 Ordered INR,PT,PROTHROMBIN TIME [COAG] DAILY Lab 05/09/21 05:11 Ordered INR,PT,PROTHROMBIN TIME [COAG] DAILY Lab 05/10/21 05:11 Ordered INR,PT,PROTHROMBIN TIME [COAG] Routine Lab 05/06/21 13:10 Ordered Acetaminophen [Tylenol Arthritis Pain] Med 05/06/21 13:40 Active 1,300 mg PO Q8H PRN Diclofenac Sodium [Voltaren 1% Gel] Med 05/06/21 12:59 Active 2 gm TOP Q6H PRN Digoxin [Lanoxin] Med 05/07/21 09:00 Active 125 mcg PO DAILY Melatonin Med 05/06/21 21:00 Active 3 mg PO BEDTIME Nystatin [Nystatin Crm] Med 05/06/21 14:00 Active 0 gm TOP TID Rosuvastatin [Crestor] Med 05/06/21 21:00 Active 20 mg PO BEDTIME Warfarin Pharmacy to Dose [Pharmacy to Dose - Warfarin] Med 05/06/21 15:00 Pending 0 dose PO ASDIRECTED Warfarin [Coumadin] Med 05/06/21 18:00 Active 5 mg PO SuTuWeThFrSa@1800 Warfarin [Coumadin] Med 05/09/21 18:00 Active 7.5 mg PO Mo@1800 allopurinoL [Zyloprim] Med 05/07/21 09:00 Active 100 mg PO DAILY cephALEXin [Keflex] Med 05/06/21 14:00 Active 500 mg PO TID Resuscitation Status Routine Resus Stat 05/06/21 11:49 Ordered EKG 12 Lead [EK] Stat Ther 05/06/21 10:22 Ordered Medication Orders Acetaminophen (Acetaminophen 650 Mg Tab.Er) 1,300 mg PO Q8H PRN PRN Reason: Pain Allopurinol (Allopurinol 100 Mg Tab) 100 mg PO DAILY [facility] Cephalexin (Cephalexin 250 Mg Cap) 500 mg PO TID [facility] Last Admin: 05/06/21 14:58 Dose: 500 mg Documented by: SAVANNAH Diclofenac Sodium (Diclofenac Sodium 1% Gel 100 Gm Tube) 2 gm TOP Q6H PRN PRN Reason: Pain Digoxin (Digoxin 125 Mcg Tab) 125 mcg PO DAILY [facility] Melatonin (Melatonin 3 Mg Tab) 3 mg PO BEDTIME [facility] Nystatin (Nystatin Crm 15 Gm Tube) 0 gm TOP TID [facility] Last Admin: 05/06/21 14:58 Dose: 1 applic Documented by: SAVANNAH Rosuvastatin Calcium (Rosuvastatin 10 Mg Tab) 20 mg PO BEDTIME [facility] Warfarin Sodium (Warfarin 5 Mg Tab) 5 mg PO SuTuWeThFrSa@1800 [facility] Warfarin Sodium (Warfarin 2.5 Mg Tab) 7.5 mg PO Mo@1800 [facility] Warfarin Sodium (Pharmacy To Dose - Warfarin) 0 dose PO ASDIRECTED [facility] Assessment/Plan Comment:: HPI summary: 71-year-old male admitted inpatient due to hypotension and syncopal episodes from the emergency department. History significant for heart failure with an ejection fraction last checked at 20%. He had been in the clinic and stood up and fell. Blood pressure was 70 systolic when he was sat back up and ambulance was called and patient was transferred to the emergency department. Patient had been seen for similar episode 2 days prior, but was sent home as he improved during ED visit. Heart failure medications were held and patient was admitted inpatient. ED course: -VS: Temp 97.3, pulse 65, respirations 16, BP 90/62 EKG: Showed left axis deviation with a right bundle branch block and a rate of 61 and atrial fibrillation. Lab: Hemoglobin 12.9, hematocrit 40.2 microcytic, platelets 184, neutrophils 71.2 without leukocytosis, potassium 5.8, electrolytes otherwise stable, BUN 50, creatinine 1.47, GFR 47, calcium 8, LFTs unremarkable, troponin 13.2, BNP 43, digoxin level I.01, INR 1.8 Normal saline 1000 mL bolus 1 Admitted inpatient with [facility] provider. Hospital course: Patient reports no concerns at this time. He does not currently feel lighth eaded. No current concerns noted. Hospitalization problems and plan: #Presyncope, possibly related to hypotension. #Hypotension, likely related to EF of 20% versus medications. Patient was given bolus in the ED for hypotension will monitor for failure. #Hyperkalemia, possible secondary to patient continuing his supplement after it had been discontinued BMP in the a.m. 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% in August 2020, complicated by medication nonadherence Continue statin Holding Coreg, spironolactone, lisinopril and furosemide #Chronic systolic heart failure with reduced ejection fraction at 20%, not currently in acute failure, this will be monitored #Atrial fibrillation, persistent, rate controlled on anticoagulation Continue warfarin and digoxin Chronic, stable conditions: #Anemia, baseline 13 #Essential hypertension, holding lisinopril and furosemide at this time #Mitral valve regurgitation, ischemic #shelter current use of anticoagulant, continue warfarin as dosed by pharmacy #DM type II oral medication controlled, hold metformin and glipizide for now #Neuropathic pain: Holding gabapentin for now patient is not currently complaining of pain he may continue to use Tylenol as needed #Gout, continue allopurinol #Intestinal disaccharidase deficiencies and disaccharide malabsorption #Prepatellar bursitis of the left knee #Medial epicondylitis of right elbow Hospitalization details: # FEN: No IV fluids patient taking oral, potassium 5.8, remainder of electrolytes stable, ADA heart healthy diet # PPX: Patient will continue warfarin # Code status: DNR # Emergency contact: # Disposition: Plan will be for discharge home with home health as has been previous with strict instructions on medications after approximately 3 midnights. - Mortality Measure Prognosis:: Poor
[2021-05-06] MEDS: Warfarin 5 MG Tab PO SCH (20:27)
[2021-05-06] MEDS: Acetaminophen 650 MG Tab.ER PO PRN (21:10)
[2021-05-06] MEDS: Rosuvastatin 10 MG Tab PO SCH (21:10)
[2021-05-06] MEDS: Melatonin 3 MG Tab PO SCH (21:11)
[2021-05-07] MEDS ORDERED: Aluminum Hydroxide/Magnesium Hydroxide/Simethicone Susp 30 ML Cup PO PRN (05:49)
[2021-05-07 07:56] LABS: ANION GAP 12.1 mmol/L (5-15); CHLORIDE,CL 103 mmol/L (98-107); SODIUM,NA 139 mmol/L (136-145)
[2021-05-07] MEDS: Cephalexin 250 MG Cap PO SCH (09:56)
[2021-05-07] MEDS: Digoxin 125 MCG Tab PO SCH (09:57)
[2021-05-07] MEDS: Allopurinol 100 MG Tab PO SCH (09:57)
[2021-05-07] MEDS ORDERED: Spironolactone 25 MG Tab PO SCH (11:00)
--- NOTE | 2021-05-07 11:20 | PCM.PN ---
- General Info Date of Service: 05/07/21 Subjective Update: Patient reports no overnight concerns. Denies lightheadedness or presyncopal episodes. Functional Status: Reports: Tolerating Diet, Ambulating, Urinating. Denies: New Symptoms - Review of Systems General: Reports: Appetite. Denies: Fever, Weakness, Fatigue, Chills HEENT: Denies: Headaches, Sinus Congestion, Sore Throat, Visual Changes Pulmonary: Denies: Shortness of Breath, Cough, Wheezing Cardiovascular: Denies: Chest Pain, Palpitations, Edema, Lightheadedness Gastrointestinal: Denies: Abdominal Pain, Constipation, Diarrhea, Melena, Nausea, Vomiting Genitourinary: Denies: Dysuria, Frequency, Urgency, Hematuria Musculoskeletal: Denies: Neck Pain, Back Pain, Joint Pain Skin: Reports: Rash (abdominal fold). Denies: Dryness, Bruising Neurological: Denies: Confusion, Headache, Paresthesia, Difficulty Walking, Weakness Psychiatric: Denies: Confusion, Depression, Anxiety - Patient Data Vitals - Most Recent: Last Vital Signs Temp 36.0 C L 05/07/21 06:45 Pulse 68 05/07/21 09:57 Resp 20 05/07/21 06:45 BP 112/54 L 05/07/21 06:45 Pulse Ox 93 L 05/07/21 06:45 Weight - Most Recent: 130.805 kg I&O - Last 24 Hours: Intake & Output 05/06/21 05/07/21 05/07/21 22:59 06:59 14:59 Intake Total 400 100 Output Total 1000 400 Balance -600 -300 Lab Results Last 24 Hours: Laboratory Results - last 24 hr 05/06/21 05/06/21 05/07/21 Range/Units 10:30 11:31 07:11 WBC (5.00-10.00) 10^3/uL RBC (4.50-6.00) 10^6/uL Hgb (13.0-17.0) g/dL Hct (40.0-52.0) % MCV (82.0-92.0) fL MCH (27.0-31.0) pg MCHC (32.0-36.0) g/dL RDW (11.5-14.5) % Plt Count (150-400) 10^3/uL MPV (7.4-10.4) fL PT TNP INR 1.8 H 2.1 H (0.9-1.1) Sodium (136-145) mmol/L Potassium (3.5-5.1) mmol/L Chloride (98-107) mmol/L Carbon Dioxide (21.0-32.0) mmol/L Anion Gap (5-15) mmol/L BUN (7-18) mg/dL Creatinine (0.51-1.17) mg/dL Est Cr Clr Drug Dosing mL/min Estimated GFR (MDRD) mL/min Glucose (70-140) mg/dL Calcium (8.7-10.3) mg/dL Digoxin 1.01 (0.90-2.00) ng/mL SARS CoV-2 RNA Rapid JA (NEGATIVE) 05/07/21 05/07/21 05/07/21 Range/Units 07:11 07:11 09:40 WBC 8.47 (5.00-10.00) 10^3/uL RBC 4.83 (4.50-6.00) 10^6/uL Hgb 13.8 (13.0-17.0) g/dL Hct 42.8 (40.0-52.0) % MCV 88.6 (82.0-92.0) fL MCH 28.6 (27.0-31.0) pg MCHC 32.2 (32.0-36.0) g/dL RDW 15.8 H (11.5-14.5) % Plt Count 179 (150-400) 10^3/uL MPV 10.3 (7.4-10.4) fL PT INR (0.9-1.1) Sodium 139 (136-145) mmol/L Potassium 5.3 H (3.5-5.1) mmol/L Chloride 103 (98-107) mmol/L Carbon Dioxide 29.2 (21.0-32.0) mmol/L Anion Gap 12.1 (5-15) mmol/L BUN 36 H (7-18) mg/dL Creatinine 1.18 H (0.51-1.17) mg/dL Est Cr Clr Drug Dosing 64.85 mL/min Estimated GFR (MDRD) > 60 mL/min Glucose 132 (70-140) mg/dL Calcium 8.8 (8.7-10.3) mg/dL Digoxin (0.90-2.00) ng/mL SARS CoV-2 RNA Rapid JA Negative (NEGATIVE) Med Orders - Current: Current Medications Acetaminophen (Acetaminophen 650 Mg Tab.Er) 1,300 mg PO Q8H PRN PRN Reason: Pain Last Admin: 05/06/21 21:10 Dose: 1,300 mg Documented by: Al Hydroxide/Mg Hydroxide (Aluminum Hydroxide/Magnesium Hydroxide/Simethicone Susp 30 Ml Cup) 30 ml PO Q4H PRN PRN Reason: Heartburn Last Admin: 05/07/21 06:06 Dose: 30 ml Documented by: Allopurinol (Allopurinol 100 Mg Tab) 100 mg PO DAILY [facility] Last Admin: 05/07/21 09:57 Dose: 100 mg Documented by: Carvedilol (Carvedilol 12.5 Mg Tab) 25 mg PO BIDMEALS [facility] Cephalexin (Cephalexin 250 Mg Cap) 500 mg PO TID [facility] Last Admin: 05/07/21 09:56 Dose: 500 mg Documented by: Diclofenac Sodium (Diclofenac Sodium 1% Gel 100 Gm Tube) 2 gm TOP Q6H PRN PRN Reason: Pain Digoxin (Digoxin 125 Mcg Tab) 125 mcg PO DAILY [facility] Last Admin: 05/07/21 09:57 Dose: 125 mcg Documented by: Melatonin (Melatonin 3 Mg Tab) 3 mg PO BEDTIME [facility] Last Admin: 05/06/21 21:11 Dose: 3 mg Documented by: Nystatin (Nystatin Crm 15 Gm Tube) 0 gm TOP TID [facility] Last Admin: 05/06/21 21:11 Dose: 1 applic Documented by: Rosuvastatin Calcium (Rosuvastatin 10 Mg Tab) 20 mg PO BEDTIME [facility] Last Admin: 05/06/21 21:10 Dose: 20 mg Documented by: Spironolactone (Spironolactone 25 Mg Tab) 12.5 mg PO BID [facility] Warfarin Sodium (Warfarin 5 Mg Tab) 5 mg PO SuTuWeThFrSa@1800 [facility] Last Admin: 05/06/21 20:27 Dose: 5 mg Documented by: Warfarin Sodium (Warfarin 2.5 Mg Tab) 7.5 mg PO Mo@1800 [facility] Warfarin Sodium (Pharmacy To Dose - Warfarin) 0 dose PO ASDIRECTED [facility] Discontinued Medications Sodium Chloride (Normal Saline) 1,000 mls @ 999 mls/hr IV .BOLUS ONE Stop: 05/06/21 11:26 Last Admin: 05/06/21 10:26 Dose: 999 mls/hr Documented by: Sodium Chloride (Normal Saline) 1,000 mls @ 150 mls/hr IV ASDIRECTED ONE Stop: 05/06/21 17:45 Last Admin: 05/06/21 11:08 Dose: 150 mls/hr Documented by: - Exam Physical Findings Comments:: GENERAL: Well-appearing adult in no acute distress. HEENT: Normocephalic, atraumatic. Conjunctiva clear. Nares patent without discharge. Mucous membranes moist, posterior pharynx unremarkable. NECK: Supple, no masses. CV: Regular rate and rhythm, no murmurs, rubs, or gallops. 2+ radial pulses. PULMONARY: Normal effort, clear to auscultation bilaterally, no wheezes, rales, or rhonchi. ABDOMEN: Positive bowel sounds, soft, nontender, nondistended. EXTREMITIES: Trace BLE edema, cyanosis, or clubbing. MUSCULOSKELETAL: Moves all extremities well. NEUROLOGICAL: No obvious deficits. DERMATOLOGIC: No rashes or suspicious lesions in exposed areas. PSYCHIATRIC: Alert, interactive, appropriate affect. - Patient Data Lab Results Last 24 hrs: Laboratory Results - last 24 hr 05/06/21 05/06/21 05/07/21 Range/Units 10:30 11:31 07:11 WBC (5.00-10.00) 10^3/uL RBC (4.50-6.00) 10^6/uL Hgb (13.0-17.0) g/dL Hct (40.0-52.0) % MCV (82.0-92.0) fL MCH (27.0-31.0) pg MCHC (32.0-36.0) g/dL RDW (11.5-14.5) % Plt Count (150-400) 10^3/uL MPV (7.4-10.4) fL PT TNP INR 1.8 H 2.1 H (0.9-1.1) Sodium (136-145) mmol/L Potassium (3.5-5.1) mmol/L Chloride (98-107) mmol/L Carbon Dioxide (21.0-32.0) mmol/L Anion Gap (5-15) mmol/L BUN (7-18) mg/dL Creatinine (0.51-1.17) mg/dL Est Cr Clr Drug Dosing mL/min Estimated GFR (MDRD) mL/min Glucose (70-140) mg/dL Calcium (8.7-10.3) mg/dL Digoxin 1.01 (0.90-2.00) ng/mL SARS CoV-2 RNA Rapid JA (NEGATIVE) 05/07/21 05/07/21 05/07/21 Range/Units 07:11 07:11 09:40 WBC 8.47 (5.00-10.00) 10^3/uL RBC 4.83 (4.50-6.00) 10^6/uL Hgb 13.8 (13.0-17.0) g/dL Hct 42.8 (40.0-52.0) % MCV 88.6 (82.0-92.0) fL MCH 28.6 (27.0-31.0) pg MCHC 32.2 (32.0-36.0) g/dL RDW 15.8 H (11.5-14.5) % Plt Count 179 (150-400) 10^3/uL MPV 10.3 (7.4-10.4) fL PT INR (0.9-1.1) Sodium 139 (136-145) mmol/L Potassium 5.3 H (3.5-5.1) mmol/L Chloride 103 (98-107) mmol/L Carbon Dioxide 29.2 (21.0-32.0) mmol/L Anion Gap 12.1 (5-15) mmol/L BUN 36 H (7-18) mg/dL Creatinine 1.18 H (0.51-1.17) mg/dL Est Cr Clr Drug Dosing 64.85 mL/min Estimated GFR (MDRD) > 60 mL/min Glucose 132 (70-140) mg/dL Calcium 8.8 (8.7-10.3) mg/dL Digoxin (0.90-2.00) ng/mL SARS CoV-2 RNA Rapid JA Negative (NEGATIVE) Result Diagrams: 05/07/21 07:11 05/07/21 07:11 Sepsis Event Note - Evaluation Sepsis Screening Result: No Definite Risk - Focused Exam Vital Signs: Vital Signs Temp Pulse Pulse Resp BP Pulse Ox 05/07/21 09:57 68 05/07/21 06:45 36.0 C L 91 20 112/54 L 93 L 05/07/21 03:00 36.2 C 61 20 99/30 L 93 L - Problem List Review Problem List Initiated/Reviewed/Updated: Yes - My Orders Last 24 Hours: My Active Orders 05/07/21 05:49 Alum Hydrox/Mag Hydrox/Simeth [Mag-Al Plus] 30 ml PO Q4H PRN 05/07/21 10:48 carvediloL [Coreg] 25 mg PO BIDMEALS 05/07/21 11:00 Spironolactone [Aldactone] 12.5 mg PO BID 05/08/21 05:11 BMP [BASIC METABOLIC PANEL,BMP] [CHEM] AM CBC W/O DIFF,HEMOGRAM [HEME] AM - Plan Plan:: HPI summary: 71-year-old male admitted inpatient due to hypotension and syncopal episodes from the emergency department. History significant for heart failure with an ejection fraction last checked at 20%. He had been in the clinic and stood up and fell. Blood pressure was 70 systolic when he was sat back up and ambulance was called and patient was transferred to the emergency department. Patient had been seen for similar episode 2 days prior, but was sent home as he improved during ED visit. Heart failure medications were held and patient was admitted inpatient. ED course: -VS: Temp 97.3, pulse 65, respirations 16, BP 90/62 EKG: Showed left axis deviation with a right bundle branch block and a rate of 61 and atrial fibrillation. Lab: Hemoglobin 12.9, hematocrit 40.2 microcytic, platelets 184, neutrophils 71.2 without leukocytosis, potassium 5.8, electrolytes otherwise stable, BUN 50, creatinine 1.47, GFR 47, calcium 8, LFTs unremarkable, troponin 13.2, BNP 43, digoxin level I.01, INR 1.8 Normal saline 1000 mL bolus 1 Admitted inpatient with [facility]. Hospital course: 05/07/2021: Patient and nursing report no overnight concerns. He is continued to not have difficulty with light headed or presyncopal episodes. Potassium is improving at 5.3 today, hemoglobin 13.8 with improved kidney function, BUN 36, creatinine 1.18, GFR greater than 60. Hospitalization problems and plan: #Presyncope, possibly related to hypotension. Resolved for now, but will restart medications for heart failure titrating up and monitoring #Hypotension, likely related to EF of 20% versus medications. Resolved for now, but will restarting medications and continue to monitor. #Hyperkalemia, possible secondary to patient continuing his supplement after it had been discontinued BMP in the a.m. 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% in August 2020, complicated by medication nonadherence Continue statin Restart Coreg at 25 mg twice a day today and plan for titration back up to home dose with monitoring Restart spironolactone at 12.5 mg twice a day and plan for titration back up to home dose with monitoring Will continue to hold lisinopril and furosemide at this time and plan on initiating dependent upon tolerance #Chronic systolic heart failure with reduced ejection fraction at 20%, not currently in acute failure #Atrial fibrillation, persistent, rate controlled on anticoagulation Continue warfarin and digoxin Chronic, stable conditions: #Anemia, baseline 13 #Essential hypertension, holding lisinopril and furosemide at this time #Mitral valve regurgitation, ischemic #group home current use of anticoagulant, continue warfarin as dosed by pharmacy #DM type II oral medication controlled, hold metformin for now, continue glipizide #Neuropathic pain: Holding gabapentin for now patient is not currently complaining of pain he may continue to use Tylenol as needed #Gout, continue allopurinol #Intestinal disaccharidase deficiencies and disaccharide malabsorption #Prepatellar bursitis of the left knee #Medial epicondylitis of right elbow Hospitalization details: # FEN: No IV fluids patient taking oral, potassium 5.3 trending down remainder of electrolytes stable, ADA heart healthy diet # PPX: Patient will continue warfarin # Code status: DNR # Emergency contact: # Disposition: Plan will be for discharge home with home health as has been pr evious with strict instructions on medications, patient will remain inpatient titrating medication for heart failure back up and will be monitored for presyncopal episodes and tolerance after approximately 3 midnights
[2021-05-07] MEDS: Nystatin Crm 15 GM Tube TOP SCH ×3 (11:26→21:36)
[2021-05-07] MEDS: Carvedilol 12.5 MG Tab PO SCH ×2 (11:27→18:19)
[2021-05-07] MEDS: Warfarin 5 MG Tab PO SCH (18:19)
[2021-05-07] MEDS ORDERED: Carvedilol 12.5 MG Tab PO ONE (20:33)
[2021-05-07] MEDS ORDERED: Spironolactone 25 MG Tab ONE (21:18)
[2021-05-07] MEDS: Acetaminophen 650 MG Tab.ER PO PRN (21:24)
[2021-05-07] MEDS: Spironolactone 25 MG Tab PO SCH (21:25)
[2021-05-07] MEDS: Rosuvastatin 10 MG Tab PO SCH (21:25)
[2021-05-07] MEDS: Melatonin 3 MG Tab PO SCH (21:25)
[2021-05-08 08:02] LABS: ANION GAP 12.2 mmol/L (5-15); CHLORIDE,CL 102 mmol/L (98-107); SODIUM,NA 138 mmol/L (136-145)
[2021-05-08] MEDS: Carvedilol 12.5 MG Tab PO SCH ×2 (09:11→17:38)
[2021-05-08] MEDS: Spironolactone 25 MG Tab PO SCH ×2 (09:11→21:02)
[2021-05-08] MEDS: Digoxin 125 MCG Tab PO SCH (09:12)
[2021-05-08] MEDS: glipiZIDE 5 MG Tab PO SCH (09:13)
[2021-05-08] MEDS: Allopurinol 100 MG Tab PO SCH (09:13)
[2021-05-08] MEDS: Nystatin Crm 15 GM Tube TOP SCH ×3 (09:14→21:08)
--- NOTE | 2021-05-08 10:32 | PCM.PN ---
- General Info Date of Service: 05/08/21 Subjective Update: Patient reports no overnight concerns, no chest pain, light headed episodes or shortness of breath. Functional Status: Reports: Pain Controlled, Tolerating Diet, Ambulating, Urinating. Denies: New Symptoms - Review of Systems General: Denies: Fever, Weakness, Fatigue, Chills HEENT: Denies: Headaches, Sore Throat, Visual Changes Pulmonary: Denies: Shortness of Breath, Cough, Wheezing Cardiovascular: Denies: Chest Pain, Edema, Lightheadedness Gastrointestinal: Denies: Abdominal Pain, Constipation, Diarrhea, Nausea, Vomiting Genitourinary: Denies: Dysuria, Urgency, Hematuria Musculoskeletal: Denies: Neck Pain, Back Pain, Joint Pain Skin: Denies: Pallor, Bruising, Pruritis Neurological: Denies: Confusion, Headache, Trouble Speaking, Difficulty Walking Psychiatric: Denies: Depression, Anxiety - Patient Data Vitals - Most Recent: Last Vital Signs Temp 36.6 C 05/08/21 06:18 Pulse 83 05/08/21 09:12 Resp 20 05/08/21 06:18 BP 124/77 05/08/21 09:11 Pulse Ox 94 L 05/08/21 06:18 Weight - Most Recent: 128.508 kg I&O - Last 24 Hours: Intake & Output 05/07/21 05/08/21 05/08/21 22:59 06:59 14:59 Intake Total 500 100 Output Total 1100 Balance -600 100 Lab Results Last 24 Hours: Laboratory Results - last 24 hr 05/07/21 05/08/21 05/08/21 Range/Units 09:40 07:10 07:10 WBC 8.57 (5.00-10.00) 10^3/uL RBC 4.58 (4.50-6.00) 10^6/uL Hgb 13.2 (13.0-17.0) g/dL Hct 40.2 (40.0-52.0) % MCV 87.8 (82.0-92.0) fL MCH 28.8 (27.0-31.0) pg MCHC 32.8 (32.0-36.0) g/dL RDW 15.7 H (11.5-14.5) % Plt Count 183 (150-400) 10^3/uL MPV 9.9 (7.4-10.4) fL INR 2.3 H (0.9-1.1) Sodium (136-145) mmol/L Potassium (3.5-5.1) mmol/L Chloride (98-107) mmol/L Carbon Dioxide (21.0-32.0) mmol/L Anion Gap (5-15) mmol/L BUN (7-18) mg/dL Creatinine (0.51-1.17) mg/dL Est Cr Clr Drug Dosing mL/min Estimated GFR (MDRD) mL/min Glucose (70-140) mg/dL Calcium (8.7-10.3) mg/dL SARS CoV-2 RNA Rapid JA Negative (NEGATIVE) 05/08/21 Range/Units 07:10 WBC (5.00-10.00) 10^3/uL RBC (4.50-6.00) 10^6/uL Hgb (13.0-17.0) g/dL Hct (40.0-52.0) % MCV (82.0-92.0) fL MCH (27.0-31.0) pg MCHC (32.0-36.0) g/dL RDW (11.5-14.5) % Plt Count (150-400) 10^3/uL MPV (7.4-10.4) fL INR (0.9-1.1) Sodium 138 (136-145) mmol/L Potassium 5.2 H (3.5-5.1) mmol/L Chloride 102 (98-107) mmol/L Carbon Dioxide 29.0 (21.0-32.0) mmol/L Anion Gap 12.2 (5-15) mmol/L BUN 29 H (7-18) mg/dL Creatinine 1.16 (0.51-1.17) mg/dL Est Cr Clr Drug Dosing 65.97 mL/min Estimated GFR (MDRD) > 60 mL/min Glucose 138 (70-140) mg/dL Calcium 9.0 (8.7-10.3) mg/dL SARS CoV-2 RNA Rapid JA (NEGATIVE) Med Orders - Current: Current Medications Acetaminophen (Acetaminophen 650 Mg Tab.Er) 1,300 mg PO Q8H PRN PRN Reason: Pain Last Admin: 05/07/21 21:24 Dose: 1,300 mg Documented by: Al Hydroxide/Mg Hydroxide (Aluminum Hydroxide/Magnesium Hydroxide/Simethicone Susp 30 Ml Cup) 30 ml PO Q4H PRN PRN Reason: Heartburn Last Admin: 05/07/21 06:06 Dose: 30 ml Documented by: Allopurinol (Allopurinol 100 Mg Tab) 100 mg PO DAILY [facility] Last Admin: 05/08/21 09:13 Dose: 100 mg Documented by: Carvedilol (Carvedilol 12.5 Mg Tab) 37.5 mg PO BIDMEALS [facility] Last Admin: 05/08/21 09:11 Dose: 37.5 mg Documented by: Diclofenac Sodium (Diclofenac Sodium 1% Gel 100 Gm Tube) 2 gm TOP Q6H PRN PRN Reason: Pain Digoxin (Digoxin 125 Mcg Tab) 125 mcg PO DAILY [facility] Last Admin: 05/08/21 09:12 Dose: 125 mcg Documented by: Glipizide (Glipizide 5 Mg Tab) 10 mg PO WITHBREAKFAST [facility] Last Admin: 05/08/21 09:13 Dose: 10 mg Documented by: Melatonin (Melatonin 3 Mg Tab) 3 mg PO BEDTIME [facility] Last Admin: 05/07/21 21:25 Dose: 3 mg Documented by: Nystatin (Nystatin Crm 15 Gm Tube) 0 gm TOP TID [facility] Last Admin: 05/08/21 09:14 Dose: 1 applic Documented by: Rosuvastatin Calcium (Rosuvastatin 10 Mg Tab) 20 mg PO BEDTIME [facility] Last Admin: 05/07/21 21:25 Dose: 20 mg Documented by: Spironolactone (Spironolactone 25 Mg Tab) 25 mg PO BID [facility] Last Admin: 05/08/21 09:11 Dose: 25 mg Documented by: Warfarin Sodium (Warfarin 5 Mg Tab) 5 mg PO SuTuWeThFrSa@1800 [facility] Last Admin: 05/07/21 18:19 Dose: 5 mg Documented by: Warfarin Sodium (Warfarin 2.5 Mg Tab) 7.5 mg PO Mo@1800 [facility] Warfarin Sodium (Pharmacy To Dose - Warfarin) 0 dose PO ASDIRECTED [facility] Discontinued Medications Carvedilol (Carvedilol 12.5 Mg Tab) 25 mg PO BIDMEALS [facility] Last Admin: 05/07/21 18:19 Dose: 25 mg Documented by: Carvedilol (Carvedilol 12.5 Mg Tab) 12.5 mg PO ONETIME ONE Stop: 05/07/21 20:34 Last Admin: 05/07/21 21:25 Dose: 12.5 mg Documented by: Cephalexin (Cephalexin 250 Mg Cap) 500 mg PO TID [facility] Last Admin: 05/07/21 09:56 Dose: 500 mg Documented by: Sodium Chloride (Normal Saline) 1,000 mls @ 999 mls/hr IV .BOLUS ONE Stop: 05/06/21 11:26 Last Admin: 05/06/21 10:26 Dose: 999 mls/hr Documented by: Sodium Chloride (Normal Saline) 1,000 mls @ 150 mls/hr IV ASDIRECTED ONE Stop: 05/06/21 17:45 Last Admin: 05/06/21 11:08 Dose: 150 mls/hr Documented by: Spironolactone (Spironolactone 25 Mg Tab) 12.5 mg PO BID [facility] Last Admin: 05/07/21 11:29 Dose: 12.5 mg Documented by: Spironolactone (Spironolactone 25 Mg Tab) Confirm Administered Dose 25 mg .ROUTE .STK-MED ONE Stop: 05/07/21 21:19 Last Admin: 05/07/21 21:35 Dose: Not Given Documented by: - Exam Physical Findings Comments:: GENERAL: Well-appearing adult in no acute distress. HEENT: Normocephalic, atraumatic. Conjunctiva clear. Nares patent without discharge. Mucous membranes moist, posterior pharynx unremarkable. NECK: Supple, no masses. CV: Regular rate and rhythm, no murmurs, rubs, or gallops. 2+ radial pulses. PULMONARY: Normal effort, clear to auscultation bilaterally, no wheezes, rales, or rhonchi. ABDOMEN: Positive bowel sounds, soft, nontender, nondistended. EXTREMITIES: Trace BLE edema, no cyanosis or clubbing. MUSCULOSKELETAL: Moves all extremities well. NEUROLOGICAL: No obvious deficits. DERMATOLOGIC: No rashes or suspicious lesions in exposed areas. PSYCHIATRIC: Alert, interactive, appropriate affect. - Patient Data Lab Results Last 24 hrs: Laboratory Results - last 24 hr 05/07/21 05/08/21 05/08/21 Range/Units 09:40 07:10 07:10 WBC 8.57 (5.00-10.00) 10^3/uL RBC 4.58 (4.50-6.00) 10^6/uL Hgb 13.2 (13.0-17.0) g/dL Hct 40.2 (40.0-52.0) % MCV 87.8 (82.0-92.0) fL MCH 28.8 (27.0-31.0) pg MCHC 32.8 (32.0-36.0) g/dL RDW 15.7 H (11.5-14.5) % Plt Count 183 (150-400) 10^3/uL MPV 9.9 (7.4-10.4) fL INR 2.3 H (0.9-1.1) Sodium (136-145) mmol/L Potassium (3.5-5.1) mmol/L Chloride (98-107) mmol/L Carbon Dioxide (21.0-32.0) mmol/L Anion Gap (5-15) mmol/L BUN (7-18) mg/dL Creatinine (0.51-1.17) mg/dL Est Cr Clr Drug Dosing mL/min Estimated GFR (MDRD) mL/min Glucose (70-140) mg/dL Calcium (8.7-10.3) mg/dL SARS CoV-2 RNA Rapid JA Negative (NEGATIVE) 05/08/21 Range/Units 07:10 WBC (5.00-10.00) 10^3/uL RBC (4.50-6.00) 10^6/uL Hgb (13.0-17.0) g/dL Hct (40.0-52.0) % MCV (82.0-92.0) fL MCH (27.0-31.0) pg MCHC (32.0-36.0) g/dL RDW (11.5-14.5) % Plt Count (150-400) 10^3/uL MPV (7.4-10.4) fL INR (0.9-1.1) Sodium 138 (136-145) mmol/L Potassium 5.2 H (3.5-5.1) mmol/L Chloride 102 (98-107) mmol/L Carbon Dioxide 29.0 (21.0-32.0) mmol/L Anion Gap 12.2 (5-15) mmol/L BUN 29 H (7-18) mg/dL Creatinine 1.16 (0.51-1.17) mg/dL Est Cr Clr Drug Dosing 65.97 mL/min Estimated GFR (MDRD) > 60 mL/min Glucose 138 (70-140) mg/dL Calcium 9.0 (8.7-10.3) mg/dL SARS CoV-2 RNA Rapid JA (NEGATIVE) Result Diagrams: 05/08/21 07:10 05/08/21 07:10 Sepsis Event Note - Evaluation Sepsis Screening Result: No Definite Risk - Focused Exam Vital Signs: Vital Signs Temp Pulse Pulse Resp BP BP Pulse Ox 05/08/21 09:12 83 05/08/21 09:11 83 124/77 05/08/21 06:18 36.6 C 73 20 142/71 H 94 L 05/08/21 02:42 35.8 C L 76 20 105/67 95 - Problem List Review Problem List Initiated/Reviewed/Updated: Yes - My Orders Last 24 Hours: My Active Orders 05/08/21 08:00 carvediloL [Coreg] 37.5 mg PO BIDMEALS glipiZIDE [Glucotrol] 10 mg PO WITHBREAKFAST 05/08/21 09:00 Spironolactone [Aldactone] 25 mg PO BID 05/08/21 10:29 Furosemide [Lasix] 20 mg PO TID lisinopriL [Prinivil] 10 mg PO BEDTIME - Plan Plan:: HPI summary: 71-year-old male admitted inpatient due to hypotension and syncopal episodes from the emergency department. History significant for heart failure with an ejection fraction last checked at 20%. He had been in the clinic and stood up and fell. Blood pressure was 70 systolic when he was sat back up and ambulance was called and patient was transferred to the emergency department. Patient had been seen for similar episode 2 days prior, but was sent home as he improved during ED visit. Heart failure medications were held and patient was admitted inpatient. ED course: -VS: Temp 97.3, pulse 65, respirations 16, BP 90/62 EKG: Showed left axis deviation with a right bundle branch block and a rate of 61 and atrial fibrillation. Lab: Hemoglobin 12.9, hematocrit 40.2 microcytic, platelets 184, neutrophils 71.2 without leukocytosis, potassium 5.8, electrolytes otherwise stable, BUN 50, creatinine 1.47, GFR 47, calcium 8, LFTs unremarkable, troponin 13.2, BNP 43, digoxin level I.01, INR 1.8 Normal saline 1000 mL bolus 1 Admitted inpatient with [facility] provider. Hospital course: 05/07/2021: Patient and nursing report no overnight concerns. He is continued to not have difficulty with light headed or presyncopal episodes. Potassium is improving at 5.3 today, hemoglobin 13.8 with improved kidney function, BUN 36, creatinine 1.18, GFR greater than 60. 05/08/2021: Patient and nursing report no overnight concerns. Patient has had no episodes of presyncope with restart of carvedilol 37.5 twice daily and spiranolactone 25 twice daily. BP 124/77 today with an overnight BP of 103/70. Potassium improving at 5.2 today. BUN 29, Cr 1.16 and GFR >60. Plan will be to restart lisinopril and furosemide today and see how he does in the next 24 hours. Consideration given to possibility that gabapentin may also have contributed to symptoms of presyncope. This will continue to be held, patient has had no pain. Hospitalization problems and plan: #Presyncope, possibly related to hypotension. Resolved for now, but will restart medications for heart failure titrating up and monitoring #Hypotension, likely related to EF of 20% versus medications. Resolved for now, but will restart medications and continue to monitor. #Hyperkalemia, improving, possible secondary to patient continuing his supplement after it had been discontinued BMP in the a.m. 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% in August 2020, complicated by medication nonadherence Continue statin Continue Coreg and spiranolactone Restart lisinopril and furosemide #Chronic systolic heart failure with reduced ejection fraction at 20%, not currently in acute failure #Atrial fibrillation, persistent, rate controlled on anticoagulation Continue warfarin and digoxin Chronic, stable conditions: #Anemia, baseline 13 #Essential hypertension, holding lisinopril and furosemide at this time #Mitral valve regurgitation, ischemic #[facility] current use of anticoagulant, continue warfarin as dosed by pharmacy #DM type II oral medication controlled, hold metformin for now, continue glipizide #Neuropathic pain: Holding gabapentin for now patient is not currently complaining of pain he may continue to use Tylenol as needed #Gout, continue allopurinol #Intestinal disaccharidase deficiencies and disaccharide malabsorption #Prepatellar bursitis of the left knee #Medial epicondylitis of right elbow Hospitalization details: # FEN: No IV fluids patient taking oral, potassium 5.2 trending down remainder of electrolytes stable, ADA heart healthy diet # PPX: Patient will continue warfarin # Code status: DNR # Emergency contact: # Disposition: Plan will be for discharge home with home health as has been previous with strict instructions on medications, patient will remain inpatient titrating medication for heart failure back up and will be monitored for presyncopal episodes and tolerance after approximately 3 midnights
[2021-05-08] MEDS ORDERED: Lisinopril 10 MG Tab PO SCH (10:45)
[2021-05-08] MEDS: Furosemide 20 MG Tab PO SCH ×3 (11:21→17:38)
[2021-05-08] MEDS: Lisinopril 10 MG Tab PO SCH (11:22)
[2021-05-08] MEDS: Warfarin 5 MG Tab PO SCH (17:38)
[2021-05-08] MEDS: Diclofenac Sodium 1% Gel 100 GM Tube TOP PRN ×2 (17:38→21:08)
[2021-05-08] MEDS: Rosuvastatin 10 MG Tab PO SCH (21:02)
[2021-05-08] MEDS: Melatonin 3 MG Tab PO SCH (21:02)
[2021-05-09 08:05] LABS: ANION GAP 13.9 mmol/L (5-15)
[2021-05-09] MEDS: Spironolactone 25 MG Tab PO SCH (08:28)
[2021-05-09] MEDS: Allopurinol 100 MG Tab PO SCH (08:28)
[2021-05-09] MEDS: glipiZIDE 5 MG Tab PO SCH (08:28)
[2021-05-09] MEDS: Furosemide 20 MG Tab PO SCH (08:28)
[2021-05-09] MEDS: Carvedilol 12.5 MG Tab PO SCH (08:29)
[2021-05-09] MEDS: Lisinopril 10 MG Tab PO SCH (08:30)
[2021-05-09] MEDS: Digoxin 125 MCG Tab PO SCH (08:30)
[2021-05-09 08:31] VITALS: BP 111/66; PULSE 73
[2021-05-09] MEDS: Nystatin Crm 15 GM Tube TOP SCH (08:34)
--- NOTE | 2021-05-09 10:48 | PCM.DCSUM1 ---
Discharge Summary - Hospital Course Free Text/Narrative:: Date of admission: 05/06/2021 Date of discharge: 05/09/2021 Admission diagnoses: #Presyncope #Hypotension #Hyperkalemia 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% in August 2020 #Chronic systolic heart failure with reduced ejection fraction at 20% #Atrial fibrillation, persistent, rate controlled on anticoagulation Discharge diagnoses: #Presyncope, resolved #Hypotension, resolved #Hyperkalemia, improved 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% in August 2020 #Chronic systolic heart failure with reduced ejection fraction at 20% #Atrial fibrillation, persistent, rate controlled on anticoagulation #Anemia #Essential hypertension #Mitral valve regurgitation, ischemic #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 History significant for heart failure with an ejection fraction last checked at 20%. He had been in the clinic and stood up and fell. Blood pressure was 70 systolic when he was sat back up and ambulance was called and patient was transferred to the emergency department. Patient had been seen for similar episode 2 days prior, but was sent home as he improved during ED visit. Heart failure medications were held and patient was admitted inpatient. 05/07/2021: Patient and nursing report no overnight concerns. He is continued to not have difficulty with light headed or presyncopal episodes. Potassium is improving at 5.3 today, hemoglobin 13.8 with improved kidney function, BUN 36, creatinine 1.18, GFR greater than 60. 05/08/2021: Patient and nursing report no overnight concerns. Patient has had no episodes of presyncope with restart of carvedilol 37.5 twice daily and spiranolactone 25 twice daily. BP 124/77 today with an overnight BP of 103/70. Potassium improving at 5.2 today. BUN 29, Cr 1.16 and GFR >60. Plan will be to restart lisinopril and furosemide today and see how he does in the next 24 hours. Consideration given to possibility that gabapentin may also have contri buted to symptoms of presyncope. This will continue to be held, patient has had no pain. 05/09/2021: No overnight concerns. Patient has tolerated restart and uptitration of heart failure medications. Overnight lowest BP 91/63, without symptoms. Patient reports no symptoms of light headedness. BUN 32, creatinine 1.27, K 4.9, INR 2.3. Electrolytes stable. Patient reports readiness for discharge. Home health agency contacted via nursing to be prepared to help with medication changes. Patient will be followed closely on discharge. Discharge and follow-up recommendations: - Discharge to home with home health care - New medications at discharge: -discontinue gabapentin -discontinue potassium - Follow-up on Sunday05/11/2021 in [place] to evaluate VS and recheck kidney function and electrolytes. - Discharge Data Discharge Date: 05/09/21 Discharge Disposition: Home, W Home Health Agency Condition: Fair - Referral to Home Health Date of Face to Face Encounter: 05/09/21 Reason for Homebound Status: Significant heart failure and cardiomyopathy with inability to manage medication himself, risk of fall due to decreased cardiac function. He has limited strength due to decreased heart function. He experiences shortness of breath with minimal activity. Primary Care Physician: Hudson Garcia MD Skilled Need: Qualifies for penitentiary care due to need for close measurement of vital signs for management. Need for nursing to help set up and manage medication due to prior non compliance with medication and difficulty understanding dosing. There is a high risk of rehospitalization due to risk associated with non compliance of medications - Patient Summary/Data Consults: Consultations 05/08/21 14:08 Consult to Case Management/Avionics Electronics Technician [CONS] Routine - Patient Instructions Diet: Heart Healthy Diet Other/Special Instructions: Watch for light headed or dizziness. Take your time when you stand. Return if shortness of breath, chest pain or light headedness. - Discharge Plan *PRESCRIPTION DRUG MONITORING PROGRAM REVIEWED*: Not Applicable *COPY OF PRESCRIPTION DRUG MONITORING REPORT IN PATIENT ELIJAH: Not Applicable Home Medications: Home Meds Digoxin [Digox] 125 mcg PO DAILY #30 10/01/20 [Rx] Diclofenac Sodium [Voltaren 1% Gel] 2 gm TOP Q6H PRN 03/04/21 [History] Melatonin 3 mg PO BEDTIME 03/04/21 [History] allopurinoL [Zyloprim] 100 mg PO DAILY 03/04/21 [History] Nystatin [Nystatin Crm] 1 applic TOP TID #1 tube 03/08/21 [Rx] Spironolactone [Aldactone] 25 mg PO BID #60 tablet 03/08/21 [Rx] Acetaminophen [Tylenol] 1,300 mg PO Q8H PRN 05/04/21 [History] Rosuvastatin [Crestor] 20 mg PO BEDTIME 05/04/21 [History] Warfarin [Coumadin] 5 mg PO ASDIRECTED 05/04/21 [History] Warfarin [Coumadin] 7.5 mg PO ASDIRECTED 05/04/21 [History] glipiZIDE [Glucotrol] 10 mg PO WITHBREAKFAST 05/04/21 [History] lisinopriL [Lisinopril] 10 mg PO BEDTIME 05/04/21 [History] metFORMIN [Glucophage] 500 mg PO BID 05/04/21 [History] carvediloL [Coreg] 37.5 mg PO BIDMEALS 05/05/21 [History] Clotrimazole [Lotrimin AF 1% Crm] 1 applic TOP BID 05/06/21 [History] Furosemide 20 mg PO TID 05/06/21 [History] Referrals: Hudson Garcia MD [Primary Care Provider] - (Follow up on Sunday05/11/2021 in [place]) - Discharge Summary/Plan Comment DC Time >30 min.: Yes - General Info Date of Service: 05/09/21 Functional Status: Reports: Pain Controlled, Tolerating Diet, Ambulating, Urinating - Review of Systems General: Denies: Fever, Fatigue, Chills HEENT: Denies: Dysphasia, Headaches, Sinus Congestion, Sore Throat Pulmonary: Denies: Shortness of Breath, Cough, Wheezing Cardiovascular: Denies: Chest Pain, Palpitations, Edema Gastrointestinal: Denies: Abdominal Pain, Decreased Appetite, Melena, Nausea, Vomiting Genitourinary: Denies: Dysuria, Frequency, Urgency, Hematuria Musculoskeletal: Denies: Neck Pain, Back Pain, Joint Swelling Skin: Denies: Dryness, Bruising, Rash Neurological: Denies: Confusion, Headache, Weakness Psychiatric: Denies: Confusion, Depression, Anxiety - Patient Data Vitals - Most Recent: Last Vital Signs Temp 36.3 C 05/09/21 06:44 Pulse 73 05/09/21 08:30 Resp 20 05/09/21 06:44 BP 111/66 05/09/21 08:30 Pulse Ox 95 05/09/21 06:44 Weight - Most Recent: 128.111 kg I&O - Last 24 hours: Intake & Output 05/08/21 05/09/21 05/09/21 22:59 06:59 14:59 Intake Total 540 100 Balance 540 100 Lab Results - Last 24 hrs: Laboratory Results - last 24 hr 05/09/21 05/09/21 Range/Units 07:10 07:10 INR 2.3 H (0.9-1.1) Sodium 137 (136-145) mmol/L Potassium 4.9 (3.5-5.1) mmol/L Chloride 102 (98-107) mmol/L Carbon Dioxide 26.0 (21.0-32.0) mmol/L Anion Gap 13.9 (5-15) mmol/L BUN 32 H (7-18) mg/dL Creatinine 1.27 H (0.51-1.17) mg/dL Est Cr Clr Drug Dosing 60.25 mL/min Estimated GFR (MDRD) 56 mL/min Glucose 141 H (70-140) mg/dL Calcium 8.9 (8.7-10.3) mg/dL Med Orders - Current: Current Medications Acetaminophen (Acetaminophen 650 Mg Tab.Er) 1,300 mg PO Q8H PRN PRN Reason: Pain Last Admin: 05/07/21 21:24 Dose: 1,300 mg Documented by: Al Hydroxide/Mg Hydroxide (Aluminum Hydroxide/Magnesium Hydroxide/Simethicone Susp 30 Ml Cup) 30 ml PO Q4H PRN PRN Reason: Heartburn Last Admin: 05/07/21 06:06 Dose: 30 ml Documented by: Allopurinol (Allopurinol 100 Mg Tab) 100 mg PO DAILY [facility] Last Admin: 05/09/21 08:28 Dose: 100 mg Documented by: Carvedilol (Carvedilol 12.5 Mg Tab) 37.5 mg PO BIDMEALS [facility] Last Admin: 05/09/21 08:29 Dose: 37.5 mg Documented by: Diclofenac Sodium (Diclofenac Sodium 1% Gel 100 Gm Tube) 2 gm TOP Q6H PRN PRN Reason: Pain Last Admin: 05/08/21 21:08 Dose: 2 gm Documented by: Digoxin (Digoxin 125 Mcg Tab) 125 mcg PO DAILY [facility] Last Admin: 05/09/21 08:30 Dose: 125 mcg Documented by: Furosemide (Furosemide 20 Mg Tab) 20 mg PO TIDMEALS [facility] Last Admin: 05/09/21 08:28 Dose: 20 mg Documented by: Glipizide (Glipizide 5 Mg Tab) 10 mg PO WITHBREAKFAST [facility] Last Admin: 05/09/21 08:28 Dose: 10 mg Documented by: Lisinopril (Lisinopril 10 Mg Tab) 10 mg PO DAILY [facility] Last Admin: 05/09/21 08:30 Dose: 10 mg Documented by: Melatonin (Melatonin 3 Mg Tab) 3 mg PO BEDTIME [facility] Last Admin: 05/08/21 21:02 Dose: 3 mg Documented by: Nystatin (Nystatin Crm 15 Gm Tube) 0 gm TOP TID [facility] Last Admin: 05/09/21 08:34 Dose: 1 applic Documented by: Rosuvastatin Calcium (Rosuvastatin 10 Mg Tab) 20 mg PO BEDTIME [facility] Last Admin: 05/08/21 21:02 Dose: 20 mg Documented by: Spironolactone (Spironolactone 25 Mg Tab) 25 mg PO BID [facility] Last Admin: 05/09/21 08:28 Dose: 25 mg Documented by: Warfarin Sodium (Warfarin 5 Mg Tab) 5 mg PO [id number] [facility] Last Admin: 05/08/21 17:38 Dose: 5 mg Documented by: Warfarin Sodium (Warfarin 2.5 Mg Tab) 7.5 mg PO [id number]@1800 [facility] Warfarin Sodium (Pharmacy To Dose - Warfarin) 0 dose PO ASDIRECTED [facility] Discontinued Medications Carvedilol (Carvedilol 12.5 Mg Tab) 25 mg PO BIDMEALS [facility] Last Admin: 05/07/21 18:19 Dose: 25 mg Documented by: Carvedilol (Carvedilol 12.5 Mg Tab) 12.5 mg PO ONETIME ONE Stop: 05/07/21 20:34 Last Admin: 05/07/21 21:25 Dose: 12.5 mg Documented by: Cephalexin (Cephalexin 250 Mg Cap) 500 mg PO TID [facility] Last Admin: 05/07/21 09:56 Dose: 500 mg Documented by: Sodium Chloride (Normal Saline) 1,000 mls @ 999 mls/hr IV .BOLUS ONE Stop: 05/06/21 11:26 Last Admin: 05/06/21 10:26 Dose: 999 mls/hr Documented by: Sodium Chloride (Normal Saline) 1,000 mls @ 150 mls/hr IV ASDIRECTED ONE Stop: 05/06/21 17:45 Last Admin: 05/06/21 11:08 Dose: 150 mls/hr Documented by: Lisinopril (Lisinopril 10 Mg Tab) 10 mg PO BEDTIME [facility] Last Admin: 05/08/21 10:48 Dose: Not Given Documented by: Spironolactone (Spironolactone 25 Mg Tab) 12.5 mg PO BID [facility] Last Admin: 05/07/21 11:29 Dose: 12.5 mg Documented by: Spironolactone (Spironolactone 25 Mg Tab) Confirm Administered Dose 25 mg .ROUTE .STK-MED ONE Stop: 05/07/21 21:19 Last Admin: 05/07/21 21:35 Dose: Not Given Documented by: - Exam Physical Findings Comments:: GENERAL: Well-appearing adult in no acute distress. HEENT: Normocephalic, atraumatic. Conjunctiva clear. Nares patent without discharge. Mucous membranes moist, posterior pharynx unremarkable. NECK: Supple, no masses. CV: Regular rate and rhythm, no murmurs, rubs, or gallops. 2+ radial pulses. PULMONARY: Normal effort, clear to auscultation bilaterally, no wheezes, rales, or rhonchi. ABDOMEN: Positive bowel sounds, soft, nontender, nondistended. EXTREMITIES: No edema, no cyanosis or clubbing. MUSCULOSKELETAL: Moves all extremities well. NEUROLOGICAL: No obvious deficits. DERMATOLOGIC: No rashes or suspicious lesions in exposed areas. PSYCHIATRIC: Alert, interactive, appropriate affect.
[2021-05-09] MEDS ORDERED: Warfarin 2.5 MG Tab PO SCH (18:00)
== END 2021-05-09 11:35 | disposition home health service (06) | DRG 312 ==
LOC: KA.ED 10:12 → KA.MS 11:49
PROVIDERS: ADMIT Physician Assistant; ATTEND Nurse Practitioner Family
DX: I95.1 Orthostatic hypotension (principal); I48.91 Unspecified atrial fibrillation; I48.11 Longstanding persistent atrial fibrillation; I50.22 Chronic systolic (congestive) heart failure; N17.9 Acute kidney failure, unspecified; E87.70 Fluid overload, unspecified; I42.8 Other cardiomyopathies; Z66 Do not resuscitate; I11.0 Hypertensive heart disease with heart failure; E87.5 Hyperkalemia; I95.9 Hypotension, unspecified; D64.9 Anemia, unspecified; I34.0 Nonrheumatic mitral (valve) insufficiency; E11.9 Type 2 diabetes mellitus without complications; M79.2 Neuralgia and neuritis, unspecified; M10.9 Gout, unspecified; E73.9 Lactose intolerance, unspecified; M70.42 Prepatellar bursitis, left knee; M77.01 Medial epicondylitis, right elbow; H54.7 Unspecified visual loss; M19.90 Unspecified osteoarthritis, unspecified site; Z90.49 Acquired absence of other specified parts of digestive tract; Z79.01 Long term (current) use of anticoagulants; Z79.84 Long term (current) use of oral hypoglycemic drugs; Z79.899 Other long term (current) drug therapy; Z88.0 Allergy status to penicillin; Z86.19 Personal history of other infectious and parasitic diseases; Z98.890 Other specified postprocedural states; Z87.891 Personal history of nicotine dependence; Z20.822 Contact with and (suspected) exposure to COVID-19
CPT/HCPCS: 36415; 36416; 80048; 80053; 80162; 83880; 84484; 85025; 85027; 85610; 93005; 99284; 99285-25; A9270-GY; J7030; U0002

== ENCOUNTER 2021-06-30 15:17 | Emergency (ER) | payer MEDICARE, SELFPAY ==
[2021-06-30 15:29] VITALS: BP 116/57; PULSE 80
[2021-06-30] MEDS ORDERED: Sodium Chloride 0.9% 10 ML Syringe FLUSH PRN (15:35)
[2021-06-30] MEDS ORDERED: Sodium Chloride 0.9% 1,000 ML IV ONE (15:35)
[2021-06-30 16:04] LABS: ANION GAP 13.6 mmol/L (5-15)
--- NOTE | 2021-06-30 16:13 | EDM.PDOC ---
ED HPI GENERAL MEDICAL PROBLEM - General Chief Complaint: Cardiovascular Problem Stated Complaint: HYPOTENSION/COLD/CLAMMY Time Seen by Provider: 06/30/21 15:27 Source of Information: Reports: Patient History Limitations: Reports: No Limitations - History of Present Illness INITIAL COMMENTS - FREE TEXT/NARRATIVE: Patient presents via ambulance after the home health nurse found his BP low. He had an episode of diarrhea today. Denies pain in chest, neck, shoulder, arm, abdomen; denies lightheadedness, n/v. He denies any other symptoms at all. Last month he was in [facility] for a week and had 30 pounds of fluid taken off. 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: See EMS Report - Related Data Allergies Allergy/AdvReac Type Severity Reaction Status Date / Time Penicillins Allergy Severe Anaphylactic Verified 06/30/21 15:23 Shock Home Meds: Home Meds Digoxin [Digox] 125 mcg PO DAILY #30 10/01/20 [Rx] Diclofenac Sodium [Voltaren 1% Gel] 2 gm TOP Q6H PRN 03/04/21 [History] Melatonin 3 mg PO BEDTIME 03/04/21 [History] allopurinoL [Zyloprim] 100 mg PO DAILY 03/04/21 [History] Nystatin [Nystatin Crm] 1 applic TOP TID #1 tube 03/08/21 [Rx] Spironolactone [Aldactone] 25 mg PO BID #60 tablet 03/08/21 [Rx] Acetaminophen [Tylenol] 1,300 mg PO Q8H PRN 05/04/21 [History] Rosuvastatin [Crestor] 20 mg PO BEDTIME 05/04/21 [History] Warfarin [Coumadin] 5 mg PO DAILY 05/04/21 [History] glipiZIDE [Glucotrol] 10 mg PO WITHBREAKFAST 05/04/21 [History] lisinopriL [Lisinopril] 10 mg PO BEDTIME 05/04/21 [History] metFORMIN [Glucophage] 500 mg PO BID 05/04/21 [History] carvediloL [Coreg] 37.5 mg PO BIDMEALS 05/05/21 [History] Clotrimazole [Lotrimin AF 1% Crm] 1 applic TOP BID 05/06/21 [History] Furosemide 40 mg PO BID 05/06/21 [History] Past Medical History HEENT History: Reports: Impaired Vision Other HEENT History: wears glasses Cardiovascular History: Reports: Afib, Heart Failure, Hypertension, Syncope Respiratory History: Reports: SOB Gastrointestinal History: Reports: None Genitourinary History: Reports: None Musculoskeletal History: Reports: Gout, Osteoarthritis Neurological History: Reports: None Psychiatric History: Reports: None Hematologic History: Reports: Anemia - Infectious Disease History Infectious Disease History: Reports: Chicken Pox, Measles, Mumps - Past Surgical History Head Surgeries/Procedures: Reports: None HEENT Surgical History: Reports: Oral Surgery Cardiovascular Surgical History: Reports: None GI Surgical History: Reports: Appendectomy, Hernia, Inguinal Male Surgical History: Reports: None Musculoskeletal Surgical History: Reports: Other (See Below) Other Musculoskeletal Surgeries/Procedures:: fluid removed from the knee once more than 10 years ago. hammer toe repair Social & Family History - Family History Family Medical History: No Pertinent Family History Cardiac: Reports: Aneurysm Oncologic: Reports: Colon - Caffeine Use Caffeine Use: Reports: Soda Caffeine Use Comment: [place] LAWSON ROS GENERAL - Review of Systems Review Of Systems: See Below Constitutional: Denies: Fever, Chills, Malaise, Weakness HEENT: Denies: Ear Pain, Throat Pain, Vision Change Respiratory: Reports: Cough (mild), Sputum (one week). Denies: Shortness of Breath Cardiovascular: Denies: Chest Pain, Lightheadedness, Syncope Endocrine: Denies: Fatigue GI/Abdominal: Denies: Abdominal Pain, Nausea, Vomiting : Denies: Dysuria, Flank Pain Musculoskeletal: Reports: No Symptoms Skin: Denies: Cyanosis, Jaundice, Mottled, Pallor, Diaphoresis Neurological: Denies: Confusion, Dizziness, Seizure, Syncope, Trouble Speaking, Difficulty Walking Psychiatric: Denies: Agitation, Anxiety ED EXAM, GENERAL - Physical Exam Exam: See Below Exam Limited By: No Limitations General Appearance: Alert, WD/WN, No Apparent Distress Eye Exam: Bilateral Eye: EOMI, Normal Inspection, PERRL Ears: Normal External Exam, Hearing Grossly Normal Nose: Normal Inspection, No Blood Throat/Mouth: Normal Inspection, Normal Lips, Normal Voice, No Airway Compromise Head: Atraumatic, Normocephalic Neck: Normal Inspection, Full Range of Motion Respiratory/Chest: No Respiratory Distress, Lungs Clear, Normal Breath Sounds Cardiovascular: No Murmur, Irregularly Irregular GI/Abdominal: Normal Bowel Sounds, Soft, Non-Tender, No Organomegaly, No Distention Back Exam: Normal Inspection, Full Range of Motion. No: CVA Tenderness (L), CVA Tenderness (R) Extremities: Normal Inspection, Normal Range of Motion Neurological: Alert, Oriented, Normal Cognition, No Motor/Sensory Deficits Psychiatric: Normal Affect, Normal Mood Skin Exam: Warm, Dry, Intact, Normal Color, No Rash Course - Vital Signs Last Recorded V/S: Last Vital Signs Temp 96.7 F L 06/30/21 15:23 Pulse 80 06/30/21 15:23 Resp 20 06/30/21 15:23 BP 116/57 L 06/30/21 15:23 Pulse Ox 93 L 06/30/21 15:23 - Orders/Labs/Meds Orders: Active Orders 24 hr Category Date Time Status EKG Documentation Completion [RC] ASDIRECTED Care 06/30/21 15:49 Active Peripheral IV Care [RC] . DIRECTED Care 06/30/21 15:35 Active Sodium Chloride 0.9% [Saline Flush] Med 06/30/21 15:35 Active 10 ml FLUSH Q8HR PRN Peripheral IV Insertion Adult [OM.PC] Routine Oth 06/30/21 15:35 Ordered EKG 12 Lead [EK] Stat Ther 06/30/21 15:49 Ordered Medication Orders Sodium Chloride (Sodium Chloride 0.9% 10 Ml Syringe) 10 ml FLUSH Q8HR PRN PRN Reason: keep vein open Labs: Laboratory Tests 06/30/21 06/30/21 06/30/21 Range/Units 15:30 15:30 16:30 WBC 11.19 H (5.00-10.00) 10^3/uL RBC 4.02 L (4.50-6.00) 10^6/uL Hgb 12.2 L (13.0-17.0) g/dL Hct 37.0 L (40.0-52.0) % MCV 92.0 D (82.0-92.0) fL MCH 30.3 (27.0-31.0) pg MCHC 33.0 (32.0-36.0) g/dL RDW 16.4 H (11.5-14.5) % Plt Count 201 (150-400) 10^3/uL MPV 10.7 H (7.4-10.4) fL Immature Gran % (Auto) 0.3 (0.0-5.0) % Neut % (Auto) 70.4 H (50.0-70.0) % Lymph % (Auto) 18.9 L (20.0-40.0) % [place] % (Auto) 8.8 H (2.0-8.0) % Eos % (Auto) 1.5 (1.0-3.0) % Baso % (Auto) 0.1 (0.0-1.0) % Neut # (Auto) 7.89 H (2.50-7.00) 10^3/uL Lymph # (Auto) 2.11 (1.00-4.00) 10^3/uL [place] # (Auto) 0.98 H (0.10-0.80) 10^3/uL Eos # (Auto) 0.17 (0.10-0.30) 10^3/uL Baso # (Auto) 0.01 (0.00-0.10) 10^3/uL Immature Gran # (Auto) 0.03 (0.00-0.50) 10^3/uL Sodium 137 (136-145) mmol/L Potassium 5.2 H (3.5-5.1) mmol/L Chloride 101 (98-107) mmol/L Carbon Dioxide 27.6 (21.0-32.0) mmol/L Anion Gap 13.6 (5-15) mmol/L BUN 45 H (7-18) mg/dL Creatinine 2.36 H (0.51-1.17) mg/dL Est Cr Clr Drug Dosing 33.39 mL/min Estimated GFR (MDRD) 28 mL/min Glucose 100 (70-140) mg/dL Calcium 8.6 L (8.7-10.3) mg/dL Total Bilirubin 0.3 (0.2-1.0) mg/dL AST 28 (15-37) U/L ALT 31 (14-63) U/L Alkaline Phosphatase 55 (46-116) U/L Troponin I High Sens 9.600 (0-76.000) pg/mL B-Natriuretic Peptide 26 (0-100) pg/mL Total Protein 7.3 (6.4-8.2) g/dL Albumin 3.86 (3.40-5.00) g/dL Specimen Type Urinvoid Urine Color Yellow (YELLOW) Urine Appearance Slightly cloudy H (CLEAR) Urine pH 5.0 (5.0-9.0) Ur Specific Sulphur 1.020 (1.005-1.030) Urine Protein Negative (NEGATIVE) mg/dL Urine Glucose (UA) Negative (NEGATIVE) mg/dL Urine Ketones Trace H (NEGATIVE) mg/dL Urine Occult Blood Negative (NEGATIVE) Urine Nitrite Negative (NEGATIVE) Urine Bilirubin Negative (NEGATIVE) Urine Urobilinogen 1.0 (0.2-1.0) E.U./dL Ur Leukocyte Esterase Negative (NEGATIVE) U Hyaline Cast (Auto) Many Urine RBC 0-5 (0-5) /HPF Urine WBC 0-5 (0-5) /HPF Ur Epithelial Cells Many H /LPF Urine Bacteria Rare (NONE TO FEW) /HPF Meds: Medications Generic Name Dose Route Start Last Admin Trade Name Freq PRN Reason Stop Dose Admin Sodium Chloride 10 ml 06/30/21 15:35 Sodium Chloride 0.9% 10 Ml Syringe FLUSH Q8HR PRN keep vein open Discontinued Medications Generic Name Dose Route Start Last Admin Trade Name Freq PRN Reason Stop Dose Admin Sodium Chloride 1,000 mls @ 999 mls/hr 06/30/21 15:35 06/30/21 15:42 Normal Saline IV 06/30/21 16:35 500 mls/hr .BOLUS ONE Administration - Re-Assessments/Exams Free Text/Narrative Re-Assessment/Exam: 06/30/21 17:59 BUN and Creatinine are higher than usual for him. WBC and ANC are mildly elevated too. EKG shows RBBB, A Fib with rate 69. Troponin and BNP are normal. Creatinine 2.36 is above his recent baseline compared with recent labs on Epic. 06/30/21 18:26 I discussed case with Dr. Mcclellan who recommended taking half doses of Furosemide and Spironolactone tonight and tomorrow morning; then follow up tomorrow morning with Savannah Donovan NP in the [facility] where labs can be rechecked back in [place] in the afternoon. I discussed findings and treatment plan with patient who is agreeable with this. He is discharged to home in stable condition. Departure - Departure Time of Disposition: 18:23 Disposition: Home, Self-Care 01 Condition: Good Clinical Impression: CHF (congestive heart failure), A-fib, Diabetes mellitus, Renal disease, On potassium sparing diuretic therapy Referrals: Hudson Garcia MD [Primary Care Provider] - Forms: ED Department Discharge Additional Instructions: Tonight take just 1/2 dose of your Furosemide and Spironolactone. Tomorrow morning take just 1/2 dose again then follow up with Savannah Donovan in [facility] for recheck and lab. If worsening go to ER. Sepsis Event Note (ED) - Evaluation Sepsis Screening Result: No Definite Risk - Focused Exam Vital Signs: Vital Signs Temp Pulse Resp BP Pulse Ox 06/30/21 15:23 96.7 F L 80 20 116/57 L 93 L - My Orders Last 24 Hours: My Active Orders 06/30/21 15:35 Peripheral IV Care [RC] . DIRECTED Sodium Chloride 0.9% [Saline Flush] 10 ml FLUSH Q8HR PRN Peripheral IV Insertion Adult [OM.PC] Routine 06/30/21 15:49 EKG Documentation Completion [RC] ASDIRECTED EKG 12 Lead [EK] Stat - Assessment/Plan Last 24 Hours: My Active Orders 06/30/21 15:35 Peripheral IV Care [RC] . DIRECTED Sodium Chloride 0.9% [Saline Flush] 10 ml FLUSH Q8HR PRN Peripheral IV Insertion Adult [OM.PC] Routine 06/30/21 15:49 EKG Documentation Completion [RC] ASDIRECTED EKG 12 Lead [EK] Stat
--- NOTE | 2021-06-30 16:43 | CR ---
[id number] RAD/RAD Chest PA And Lateral EXAM: RAD Chest PA And Lateral INDICATION: COUGH, LEUKOCYTOSIS. COMPARISON: March 04, 2021. DISCUSSION/IMPRESSION: Cardiomediastinal silhouette is normal in size and contour. Lungs are clear. No pleural effusion or pneumothorax. José Miguel Tan MD 06/30/21 1640 Thank you for allowing us to participate in the care of your patient.
== END 2021-06-30 19:02 | disposition home or self-care (01) ==
LOC: KA.ED 15:17
DX: I48.91 Unspecified atrial fibrillation (principal); I11.0 Hypertensive heart disease with heart failure; I50.9 Heart failure, unspecified; E11.9 Type 2 diabetes mellitus without complications; N28.9 Disorder of kidney and ureter, unspecified; M10.9 Gout, unspecified; Z88.0 Allergy status to penicillin; Z79.899 Other long term (current) drug therapy; Z79.01 Long term (current) use of anticoagulants; Z79.84 Long term (current) use of oral hypoglycemic drugs
CPT/HCPCS: 71046; 80053; 81001; 83880; 84484; 85025; 93005; 99284; 99285-25; J7030

== ENCOUNTER 2023-08-11 16:14 | Emergency (ER) | payer MEDICARE ==
[2023-08-11] MEDS ORDERED: Sodium Chloride 0.9% 10 ML Syringe FLUSH PRN (16:45)
[2023-08-11 16:50] LABS: BASOPHILS ABSOLUTE AUTO 0.02 10^3/uL (0.00-0.10); BASOPHILS PERCENT AUTO 0.1 % (0.0-1.0); EOSINOPHILS ABSOLUTE AUTO 0.21 10^3/uL (0.10-0.30); EOSINOPHILS PERCENT AUTO 1.3 % (1.0-3.0); HEMATOCRIT 41.6 % (40.0-52.0); HEMOGLOBIN 13.6 g/dL (13.0-17.0); IMMATURE GRAN ABSOLUTE AUTO 0.07 10^3/uL (0.00-0.50); IMMATURE GRAN PERCENT AUTO 0.4 % (0.0-5.0); LYMPHOCYTES ABSOLUTE AUTO 2.37 10^3/uL (1.00-4.00); LYMPHOCYTES PERCENT AUTO 15.2 % (20.0-40.0); MEAN CORPUSCULAR HEMOGLOBIN 28.3 pg (27.0-31.0); MEAN CORPUSCULAR HGB CONC 32.7 g/dL (32.0-36.0); MEAN CORPUSCULAR VOLUME 86.7 fL (82.0-92.0); MEAN PLATELET VOLUME 10.5 fL (7.4-10.4); MONOCYTES ABSOLUTE AUTO 1.14 10^3/uL (0.10-0.80); MONOCYTES PERCENT AUTO 7.3 % (2.0-8.0); NEUTROPHILS ABSOLUTE AUTO 11.79 10^3/uL (2.50-7.00); NEUTROPHILS PERCENT AUTO 75.7 % (50.0-70.0); PLATELET COUNT,PLT 217 10^3/uL (150-400); RED CELL DISTRIBUTION WIDTH 14.4 % (11.5-14.5)
[2023-08-11 17:00] LABS: ALBUMIN 3.38 g/dL (3.40-5.00); ANION GAP 12.4 mmol/L (5-15); BILIRUBIN TOTAL 0.7 mg/dL (0.2-1.0); CALCIUM 9.1 mg/dL (8.7-10.3); CREATININE 0.84 mg/dL (0.51-1.17); EST CRCL DRUG DOSING (CG) 88.53 mL/min; POTASSIUM,K 4.4 mmol/L (3.5-5.1); PROTEIN TOTAL,TP 7.4 g/dL (6.4-8.2)
[2023-08-11 17:53] LABS: INR 2.8 (0.9-1.1); PROTHROMBIN TIME 26.3 SEC (9.2-11.2)
[2023-08-11 18:20] LABS: APPEARANCE,URINE CLEAR (CLEAR); BILIRUBIN,URINE NEGATIVE (NEGATIVE); COLOR,URINE DARK YELLOW (YELLOW); GLUCOSE,URINE NEGATIVE (NEGATIVE); KETONES,URINE TRACE mg/dL (NEGATIVE); LEUKOCYTE ESTERASE,URINE NEGATIVE (NEGATIVE); NITRITE,URINE NEGATIVE (NEGATIVE); OCCULT BLOOD,URINE NEGATIVE (NEGATIVE); PROTEIN,URINE TRACE mg/dL (NEGATIVE); UROBILINOGEN,URINE 0.2 E.U./dL (0.2-1.0)
[2023-08-11] MEDS ORDERED: Sodium Chloride 0.9% 1,000 ML IV ONE (18:29)
[2023-08-11 18:39] LABS: BACTERIA,URINE RARE /HPF (NONE TO FEW); EPITHELIAL CELLS,URINE RARE /LPF; GRANULAR CASTS,URINE OCCASIONAL; HYALINE CASTS,URINE RARE; MUCUS,URINE MODERATE /LPF (NEGATIVE); RBC,URINE 0-5 /HPF (0-5); WBC,URINE 0-5 /HPF (0-5)
[2023-08-11] MEDS ORDERED: Iopamidol 755 Mg/ML 100 ML Bottle IV ONE (18:39)
[2023-08-11] MEDS ORDERED: Sodium Chloride 0.9% 50 ML IV SCH (18:45)
[2023-08-11 20:17] VITALS: PULSE 71
[2023-08-11] MEDS ORDERED: cefTRIAXone 2 GM Vial IVPUSH ONE (21:26)
[2023-08-11 22:30] VITALS: BP 131/75
== END 2023-08-11 21:50 ==
LOC: KA.ED 16:14
DX: S20.211A Contusion of right front wall of thorax, initial encounter (principal); I48.91 Unspecified atrial fibrillation; I11.0 Hypertensive heart disease with heart failure; I50.9 Heart failure, unspecified; E11.9 Type 2 diabetes mellitus without complications; E66.9 Obesity, unspecified; Z68.35 Body mass index [BMI] 35.0-35.9, adult; Z88.0 Allergy status to penicillin; Z79.01 Long term (current) use of anticoagulants; Z79.84 Long term (current) use of oral hypoglycemic drugs; Z79.899 Other long term (current) drug therapy; W22.8XXA Striking against or struck by other objects, initial encounter
CPT/HCPCS: 36415; 71101; 74177; 80053; 81001; 82150; 83605; 83690; 84484; 85025; 85610; 87040; 93005; 96361; 96374; 99285; C1758; J0696; J3490; J7030; Q9967; 93010; 99284

== ENCOUNTER 2025-09-10 22:05 | Inpatient (IN) | payer MEDICARE, MEDICAID ==
[2025-09-10 22:27] LABS: BASOPHILS ABSOLUTE AUTO 0.02 10^3/uL (0.00-0.10); BASOPHILS PERCENT AUTO 0.1 % (0.0-1.0); EOSINOPHILS ABSOLUTE AUTO 0.08 10^3/uL (0.10-0.30); EOSINOPHILS PERCENT AUTO 0.6 % (1.0-3.0); IMMATURE GRAN ABSOLUTE AUTO 0.06 10^3/uL (0.00-0.04); IMMATURE GRAN PERCENT AUTO 0.4 % (0.0-0.4); LYMPHOCYTES ABSOLUTE AUTO 1.46 10^3/uL (1.00-4.00); LYMPHOCYTES PERCENT AUTO 10.5 % (20.0-40.0); MEAN PLATELET VOLUME 10.0 fL (7.4-10.4); MONOCYTES ABSOLUTE AUTO 1.20 10^3/uL (0.10-0.80); MONOCYTES PERCENT AUTO 8.6 % (2.0-8.0); NEUTROPHILS ABSOLUTE AUTO 11.08 10^3/uL (2.50-7.00); NEUTROPHILS PERCENT AUTO 79.8 % (50.0-70.0); PLATELET COUNT,PLT 281 10^3/uL (150-400); RED BLOOD CELL COUNT 4.22 10^6/uL (4.50-6.00); RED CELL DISTRIBUTION WIDTH 13.0 % (11.5-14.5); WHITE BLOOD CELL COUNT,WBC 13.90 10^3/uL (5.00-10.00)
[2025-09-10 22:42] LABS: ALANINE AMINOTRANSFERASE,ALT 22.0 U/L (14-63); ASPARTATE AMNIOTRANSFERASE,AST 19.0 U/L (15-37); BILIRUBIN TOTAL 0.6 mg/dL (0.2-1.0); CARBON DIOXIDE,CO2 27.3 mmol/L (21.0-32.0); CHLORIDE,CL 98.0 mmol/L (98-107); CREATININE 1.95 mg/dL (0.51-1.17); EST CRCL DRUG DOSING (CG) 37.03 mL/min; GLUCOSE RANDOM 233.0 mg/dL (70-140); POTASSIUM,K 5.9 mmol/L (3.5-5.1); PROTEIN TOTAL,TP 7.6 g/dL (6.4-8.2); SODIUM,NA 136.0 mmol/L (136-145)
[2025-09-10 22:43] LABS: BLOOD UREA NITROGEN,BUN 52.0 mg/dL (7-18); ESTIMATED GFR 36.0 mL/min (>=60)
[2025-09-11] MEDS ORDERED: Nystatin Topical Powder 15 GM Bottle TOP PRN (02:21)
[2025-09-11 02:54] LABS: LACTIC ACID 0.8 mmol/L (0.4-2.0)
[2025-09-11] MEDS ORDERED: Triamcinolone Acetonide 0.1% Crm 15 GM Tube TOP PRN (02:59)
[2025-09-11] MEDS: Non-Formulary Medication 1 Each (Warfarin 7.5 MG Tablet) PO SCH (03:02)
[2025-09-11 03:08] LABS: INR 3.3 (0.9-1.1)
[2025-09-11] MEDS ORDERED: Glucose Gel 15 GM in 37.5 GM Tube PO PRN (04:31)
[2025-09-11] MEDS ORDERED: 50% Dextrose in Water 50 ML Syringe IVPUSH PRN (04:31)
[2025-09-11] MEDS: Insulin Lispro 100 Unit/ML 3 ML KwikPen SUBCUT ONE ×2 (05:37→05:38)
[2025-09-11 07:14] LABS: BASOPHILS ABSOLUTE AUTO 0.01 10^3/uL (0.00-0.10); BASOPHILS PERCENT AUTO 0.1 % (0.0-1.0); EOSINOPHILS ABSOLUTE AUTO 0.15 10^3/uL (0.10-0.30); EOSINOPHILS PERCENT AUTO 1.1 % (1.0-3.0); IMMATURE GRAN ABSOLUTE AUTO 0.06 10^3/uL (0.00-0.04); IMMATURE GRAN PERCENT AUTO 0.4 % (0.0-0.4); LYMPHOCYTES ABSOLUTE AUTO 1.88 10^3/uL (1.00-4.00); LYMPHOCYTES PERCENT AUTO 13.7 % (20.0-40.0); MEAN PLATELET VOLUME 10.0 fL (7.4-10.4); MONOCYTES ABSOLUTE AUTO 1.21 10^3/uL (0.10-0.80); MONOCYTES PERCENT AUTO 8.8 % (2.0-8.0); NEUTROPHILS ABSOLUTE AUTO 10.38 10^3/uL (2.50-7.00); NEUTROPHILS PERCENT AUTO 75.9 % (50.0-70.0); PLATELET COUNT,PLT 251 10^3/uL (150-400); RED BLOOD CELL COUNT 4.03 10^6/uL (4.50-6.00); RED CELL DISTRIBUTION WIDTH 12.8 % (11.5-14.5); WHITE BLOOD CELL COUNT,WBC 13.69 10^3/uL (5.00-10.00)
[2025-09-11 07:27] LABS: CARBON DIOXIDE,CO2 29.1 mmol/L (21.0-32.0); CHLORIDE,CL 102.0 mmol/L (98-107); CREATININE 1.53 mg/dL (0.51-1.17); EST CRCL DRUG DOSING (CG) 47.2 mL/min; GLUCOSE RANDOM 190.0 mg/dL (70-140); POTASSIUM,K 5.0 mmol/L (3.5-5.1); SODIUM,NA 139.0 mmol/L (136-145)
[2025-09-11 07:34] LABS: BLOOD UREA NITROGEN,BUN 55.0 mg/dL (7-18); ESTIMATED GFR 48.0 mL/min (>=60)
[2025-09-11] MEDS ORDERED: Non-Formulary Medication 1 Each (Carvedilol [Coreg] 25 MG Tablet) PO SCH (08:00)
[2025-09-11] MEDS: Multivitamins with Minerals/Iron/Folic Acid/Lycopene Tab PO SCH (08:41)
[2025-09-11] MEDS: Insulin Lispro 100 Unit/ML 3 ML KwikPen SUBCUT SCH (08:43)
[2025-09-11] MEDS: Psyllium Husk Powder Sugar Free 5.85 GM Packet PO SCH (08:43)
[2025-09-11] MEDS ORDERED: Non-Formulary Medication 1 Each (Empagliflozin [Jardiance] 25 MG Tablet) PO SCH (09:00)
[2025-09-11] MEDS: VANCOmycin 1.5 GM/300 ML 1.5 GM in Premix Bag 1 BAG IV SCH (14:55)
[2025-09-12 07:45] LABS: BASOPHILS ABSOLUTE AUTO 0.01 10^3/uL (0.00-0.10); BASOPHILS PERCENT AUTO 0.1 % (0.0-1.0); EOSINOPHILS ABSOLUTE AUTO 0.27 10^3/uL (0.10-0.30); EOSINOPHILS PERCENT AUTO 1.9 % (1.0-3.0); IMMATURE GRAN ABSOLUTE AUTO 0.09 10^3/uL (0.00-0.04); IMMATURE GRAN PERCENT AUTO 0.6 % (0.0-0.4); LYMPHOCYTES ABSOLUTE AUTO 1.61 10^3/uL (1.00-4.00); LYMPHOCYTES PERCENT AUTO 11.5 % (20.0-40.0); MEAN PLATELET VOLUME 9.9 fL (7.4-10.4); MONOCYTES ABSOLUTE AUTO 0.98 10^3/uL (0.10-0.80); MONOCYTES PERCENT AUTO 7.0 % (2.0-8.0); NEUTROPHILS ABSOLUTE AUTO 11.09 10^3/uL (2.50-7.00); NEUTROPHILS PERCENT AUTO 78.9 % (50.0-70.0); PLATELET COUNT,PLT 257 10^3/uL (150-400); RED BLOOD CELL COUNT 4.22 10^6/uL (4.50-6.00); RED CELL DISTRIBUTION WIDTH 12.9 % (11.5-14.5); WHITE BLOOD CELL COUNT,WBC 14.05 10^3/uL (5.00-10.00)
[2025-09-12 08:01] LABS: BLOOD UREA NITROGEN,BUN 36.0 mg/dL (7-18); CARBON DIOXIDE,CO2 27.7 mmol/L (21.0-32.0); CHLORIDE,CL 102.0 mmol/L (98-107); CREATININE 0.98 mg/dL (0.51-1.17); EST CRCL DRUG DOSING (CG) 73.68 mL/min; GLUCOSE RANDOM 168.0 mg/dL (70-140); POTASSIUM,K 5.3 mmol/L (3.5-5.1); SODIUM,NA 138.0 mmol/L (136-145)
[2025-09-12 08:03] LABS: ESTIMATED GFR 81.0 mL/min (>=60)
[2025-09-12 08:04] LABS: INR 3.1 (0.9-1.1)
[2025-09-13 07:28] LABS: BASOPHILS ABSOLUTE AUTO 0.01 10^3/uL (0.00-0.10); BASOPHILS PERCENT AUTO 0.1 % (0.0-1.0); EOSINOPHILS ABSOLUTE AUTO 0.21 10^3/uL (0.10-0.30); EOSINOPHILS PERCENT AUTO 1.7 % (1.0-3.0); IMMATURE GRAN ABSOLUTE AUTO 0.15 10^3/uL (0.00-0.04); IMMATURE GRAN PERCENT AUTO 1.2 % (0.0-0.4); LYMPHOCYTES ABSOLUTE AUTO 1.67 10^3/uL (1.00-4.00); LYMPHOCYTES PERCENT AUTO 13.4 % (20.0-40.0); MEAN PLATELET VOLUME 9.7 fL (7.4-10.4); MONOCYTES ABSOLUTE AUTO 0.90 10^3/uL (0.10-0.80); MONOCYTES PERCENT AUTO 7.2 % (2.0-8.0); NEUTROPHILS ABSOLUTE AUTO 9.54 10^3/uL (2.50-7.00); NEUTROPHILS PERCENT AUTO 76.4 % (50.0-70.0); PLATELET COUNT,PLT 279 10^3/uL (150-400); RED BLOOD CELL COUNT 4.25 10^6/uL (4.50-6.00); RED CELL DISTRIBUTION WIDTH 12.9 % (11.5-14.5); WHITE BLOOD CELL COUNT,WBC 12.48 10^3/uL (5.00-10.00)
[2025-09-13 07:43] LABS: BLOOD UREA NITROGEN,BUN 30.0 mg/dL (7-18); CARBON DIOXIDE,CO2 28.8 mmol/L (21.0-32.0); CHLORIDE,CL 101.0 mmol/L (98-107); CREATININE 0.96 mg/dL (0.51-1.17); EST CRCL DRUG DOSING (CG) 75.22 mL/min; ESTIMATED GFR 83.0 mL/min (>=60); GLUCOSE RANDOM 173.0 mg/dL (70-140); POTASSIUM,K 4.9 mmol/L (3.5-5.1); SODIUM,NA 137.0 mmol/L (136-145)
[2025-09-13 07:56] LABS: INR 1.8 (0.9-1.1)
[2025-09-13 13:46] VITALS: BP 133/77; PULSE 86
== END 2025-09-13 13:38 | DRG 871 ==
LOC: KA.ED 22:05 → KA.MS 23:30
PROVIDERS: ADMIT Internal Medicine; ATTEND Internal Medicine
DX: A41.9 Sepsis, unspecified organism (principal); J18.9 Pneumonia, unspecified organism; J96.01 Acute respiratory failure with hypoxia; N17.9 Acute kidney failure, unspecified; F02.84 Dementia in other diseases classified elsewhere, unspecified severity, with anxiety; E87.20 Acidosis, unspecified; I13.0 Hypertensive heart and chronic kidney disease with heart failure and stage 1 through stage 4 chronic kidney disease, or unspecified chronic kidney disease; Z66 Do not resuscitate; R65.20 Severe sepsis without septic shock; I48.0 Paroxysmal atrial fibrillation; I50.9 Heart failure, unspecified; G47.30 Sleep apnea, unspecified; M10.9 Gout, unspecified; M19.90 Unspecified osteoarthritis, unspecified site; G30.0 Alzheimer's disease with early onset; E66.9 Obesity, unspecified; N40.0 Benign prostatic hyperplasia without lower urinary tract symptoms; N18.30 Chronic kidney disease, stage 3 unspecified; E11.22 Type 2 diabetes mellitus with diabetic chronic kidney disease; Z88.0 Allergy status to penicillin; Z79.899 Other long term (current) drug therapy; Z79.01 Long term (current) use of anticoagulants; Z79.1 Long term (current) use of non-steroidal anti-inflammatories (NSAID); Z79.84 Long term (current) use of oral hypoglycemic drugs; Z87.891 Personal history of nicotine dependence; Z90.49 Acquired absence of other specified parts of digestive tract; Z98.890 Other specified postprocedural states; Z68.33 Body mass index [BMI] 33.0-33.9, adult
CPT/HCPCS: 36415; 71045; 73070-LT; 80048; 80053; 80202; 82947; 83605; 83880; 84484; 85025; 85610; 87040; 87070; 87205; 93005; 93010; 99223-GT; 99232-GT; 99233-GT; 99239-GT; 99284; 99285; A9270-GY; J0692; J3373; J3375; J7030; J7050; Q3014